=== PATIENT | female | born 1935 | race Caucasian/White ===

== ENCOUNTER 2019-04-08 14:23 | Inpatient (IN) | payer MEDICARE ==
[~2019-04-08] VITALS: Ht 160 cm; Wt 62.9 kg
[2019-04-08 14:56] LABS: BASO % 0.5 % (0.0-1.0); EOS # 0.1 10^3/uL (0.0-0.50); EOS % 1.2 % (0.0-3.0); HEMATOCRIT 41.7 % (36.0-47.0); HEMOGLOBIN 13.7 g/dl (12.0-15.5); LYMPH # 0.8 10^3/uL (1.5-4.5); LYMPH % 9.9 % (24.0-44.0); MEAN CORPUSCULAR HEMOGLOBIN 32.2 pg (27.0-33.0); MEAN CORPUSCULAR HGB CONC 32.9 g/dl (32.0-36.5); MEAN CORPUSCULAR VOLUME 97.9 fl (80.0-96.0); MONO % 11.9 % (0.0-5.0); NEUTROPHILS # 6.3 10^3/uL (1.8-7.7); NEUTROPHILS % 76.1 % (36.0-66.0); PLATELET COUNT, AUTOMATED 286 10^3/uL (150-450); RED BLOOD COUNT 4.26 10^6/uL (4.00-5.40); WHITE BLOOD COUNT 8.3 10^3/uL (4.0-10.0)
[2019-04-08 15:12] LABS: INR 1.19; PROTHROMBIN TIME 14.8 SECONDS (11.8-14.0)
[2019-04-08 15:13] LABS: PARTIAL THROMBOPLASTIN TIME 32.2 SECONDS (25.0-38.4)
[2019-04-08] MEDS ORDERED: ASPIRIN 81 MG CHEW TABLET PO ONE (15:15)
[2019-04-08] MEDS ORDERED: NS 500 ML IV ONE (15:15)
[2019-04-08] MEDS ORDERED: METOPROLOL TART 25 MG TABLET PO ONE ×2 (15:15→17:30)
[2019-04-08] MEDS ORDERED: NS 1,000 ML IV SCH (15:15)
[2019-04-08] MEDS: METOPROLOL 5 MG/5 ML VIAL IV SCH ×3 (15:25→16:57)
[2019-04-08 15:34] LABS: CALCIUM LEVEL 9.3 MG/DL (8.8-10.2); CK-MB VALUE MASS 4.5 NG/ML (<3.6); FREE T4 1.47 NG/DL (0.76-1.46); GLOMERULAR FILTRATION RATE 56.6 (>32); MB/CK RELATIVE INDEX 7.14 (< OR =4); POTASSIUM SERUM 4.4 MEQ/L (3.5-5.1); THYROID STIMULATING HORMONE 6.54 uIU/ML (0.358-3.740); TROPONIN I 0.06 NG/ML (< 0.10)
--- NOTE | 2019-04-08 16:05 | REP ---
REASON: Chest pain. PRIORS: None. The technique utilized in obtaining the radiograph has magnified the cardiac silhouette and accentuated the interstitial markings. There are bibasilar opacities right greater than left with bilateral CP angle blunting and again right greater than left. Calcified hilar lymph nodes are present. There appears to be interstitial fibrotic change. The osseous structures appear to be within normal limits. IMPRESSION: 1. There are no priors for comparison. 2. Lung field changes as described above. I can not rule out the possibility of acute basilar pneumonia. Electronically Signed by Spike Espinoza DO 04/08/2019 04:21 P
[2019-04-08] MEDS ORDERED: BIOT1CAP2 PO (17:36)
[2019-04-08] MEDS ORDERED: VITMTA PO (17:36)
[2019-04-08] MEDS ORDERED: D-10TAB3 PO (17:36)
[2019-04-08] MEDS ORDERED: GLUC500C37 PO (17:36)
[2019-04-08] MEDS ORDERED: LUTE2000 PO (17:36)
[2019-04-08] MEDS ORDERED: FISH1000 PO (17:36)
[2019-04-08] MEDS ORDERED: CO Q10CA PO (17:36)
[2019-04-08] MEDS ORDERED: ACETAMINOPHEN TAB 650MG DOSE (2X325MG) PO PRN (19:00)
[2019-04-08 19:59] LABS: MAGNESIUM LEVEL 2.1 MG/DL (1.8-2.4)
--- NOTE | 2019-04-08 20:10 | ECGEPIP ---
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
--- NOTE | 2019-04-08 20:21 | ECGEPIP ---
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
--- NOTE | 2019-04-08 20:47 | HPE ---
DATE OF ADMISSION: 04/08/2019 CHIEF COMPLAINT: Shortness of breath and weakness for a week. HISTORY OF PRESENT ILLNESS: This is an 83-year-old female who is relatively healthy with no past medical history who presents to the urgent care with shortness of breath and weakness for a week. The patient reports that she is usually quite healthy and ambulatory but for the last week she has gotten quickly winded after ambulating. She went to the urgent care and was found to have new atrial fibrillation and was instructed to come to the emergency room (ER). In the ER, she was found to be in atrial fibrillation with rapid ventricular response (RVR) with heart rates of 120. She was given multiple doses of IV metoprolol with improvement. She herself denies any palpitations or chest pain. Other than the general weakness and shortness of breath she denied any other symptoms. No lower extremity edema. No prior history of palpitations or arrhythmias. REVIEW OF SYSTEMS: Negative in 14 out of 14 systems except as noted above. PAST MEDICAL HISTORY: As above in history of present illness (HPI). PAST SURGICAL HISTORY: 1. She had her right 5th toe removed in December of this year. 2. She had a left total knee replacement. 3. She has a history of bilateral mastectomy. MEDICATIONS: The patient's home medications are: - Biotin capsules one capsule by mouth nightly - glucosamine and chondroitin one capsule by mouth nightly - lutein one capsule by mouth nightly - omega 3 1000 mg by mouth nightly - coenzyme Q10 one capsule by mouth nightly - vitamin D3 1000 units by mouth nightly - multivitamin one tablet by mouth nightly ALLERGIES: No known drug allergies. FAMILY HISTORY: Her father had coronary artery disease. SOCIAL HISTORY: The patient has been for 60 years and lives with her . She has three adult children. 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 No smoking, alcohol, or drugs. She was a prior smoker but quit over 30 years ago. PHYSICAL EXAMINATION: Currently she is afebrile, blood pressure 186/89, pulse of 85, respirating 91% on room air. GENERAL: She is in no acute distress and breathing comfortably. HEENT EXAM: Oropharynx clear. CARDIOVASCULAR: Irregularly irregular. No murmurs, rubs, or gallops. LUNGS: Clear to auscultation bilaterally. ABDOMEN: Soft, nontender, nondistended. Positive bowel sounds. EXTREMITIES: Trace lower extremity edema. SKIN: Intact. NEUROLOGIC: She is alert and oriented times three, follows simple commands. No focal neurologic deficits. PSYCHIATRIC: Mood stable. LABORATORY DATA: Reveal chemistry with a creatinine of 1, potassium 4.4. CBC shows white count of 8.3, hemoglobin 13.7, platelets of 286. IMAGING: Showed a chest x-ray on admission which shows bibasilar opacities right greater than left. Cannot rule out the possibility of pneumonia. ASSESSMENT AND PLAN: This is an 83-year-old female with no significant past medical history who comes in with shortness of breath and weakness for a week, found to be in new atrial fibrillation. 1. New atrial fibrillation. The patient is now rate controlled status post IV metoprolol and by mouth metoprolol. I am going to start her on metoprolol 50 mg twice a day orally. Her CHADS2-VASc score is 4 given that she is over 77, female, has a history of hypertension. I discussed anticoagulation with her and she agrees. I started her on Eliquis 5 mg twice a day. I have checked an echo for tomorrow. Her TSH is 6.5 with a T4 of 1.47 which is basically within normal range as the upper range of normal is 1.46. Her troponin initially was 0.06 and we will repeat another. She will be admitted to the telemetry floor. Given that this is her first episode of atrial fibrillation, I have consulted cardiology in case she is a candidate for an attempt of cardioversion. I have started her on Eliquis as well. 2. Hypertension. She does not carry a history of hypertension, though she has significantly high blood pressures in the emergency room (ER) up to 186/89. I have already started her on metoprolol. Should she continue to be hypertensive, team tomorrow can consider adding another blood pressure medication prior to discharge. 3. The patient is a FULL CODE.
[2019-04-08 22:50] VITALS: BP 188/88
[2019-04-08] MEDS: APIXABAN 5 MG TAB (ELIQUIS) PO SCH (23:03)
[2019-04-08] MEDS: VITAMIN D 1,000 INTERNATIONAL UNITS TABLET PO SCH (23:03)
[2019-04-08] MEDS: MULTIVITAMINS/MINERALS THERAP 1 TAB PO SCH (23:03)
[2019-04-08 23:59] VITALS: BP 167/93
[2019-04-09] VITALS (7 sets, daily range): BP systolic 138–188; BP diastolic 67–96
[2019-04-09] MEDS: amLODIPine 10 MG TAB PO SCH ×2 (04:15→09:44)
[2019-04-09 08:43] LABS: BASO # 0.1 10^3/uL (0.0-0.2); BASO % 0.6 % (0.0-1.0); EOS # 0.1 10^3/uL (0.0-0.50); EOS % 0.9 % (0.0-3.0); HEMATOCRIT 45.5 % (36.0-47.0); HEMOGLOBIN 14.5 g/dl (12.0-15.5); LYMPH # 1.1 10^3/uL (1.5-4.5); LYMPH % 13.6 % (24.0-44.0); MEAN CORPUSCULAR HEMOGLOBIN 32.3 pg (27.0-33.0); MEAN CORPUSCULAR HGB CONC 31.9 g/dl (32.0-36.5); MEAN CORPUSCULAR VOLUME 101.3 fl (80.0-96.0); MONO # 0.8 10^3/uL (0.0-0.8); MONO % 10.1 % (0.0-5.0); NEUTROPHILS # 6.1 10^3/uL (1.8-7.7); NEUTROPHILS % 74.3 % (36.0-66.0); PLATELET COUNT, AUTOMATED 227 10^3/uL (150-450); RED BLOOD COUNT 4.49 10^6/uL (4.00-5.40); WHITE BLOOD COUNT 8.2 10^3/uL (4.0-10.0)
[2019-04-09] MEDS: APIXABAN 5 MG TAB (ELIQUIS) PO SCH ×2 (09:44→20:20)
[2019-04-09] MEDS: METOPROLOL TART 50 MG TAB PO SCH ×2 (09:44→20:21)
[2019-04-09 09:57] LABS: BLOOD UREA NITROGEN 18 MG/DL (7-18); CARBON DIOXIDE LEVEL < 1.0 MEQ/L (21-32); CHLORIDE LEVEL 106 MEQ/L (98-107); CK-MB VALUE MASS 4.9 NG/ML (<3.6); CPK CREATINE PHOSPHOKINASE 60 U/L (26-192); CREATININE FOR GFR 0.78 MG/DL (0.55-1.30); GLOMERULAR FILTRATION RATE > 60.0 (>32); GLUCOSE, FASTING 68 MG/DL (70-100); MB/CK RELATIVE INDEX 8.17 (< OR =4); POTASSIUM SERUM 4.4 MEQ/L (3.5-5.1); SODIUM LEVEL 131 MEQ/L (136-145); TROPONIN I 0.02 NG/ML (< 0.10)
[2019-04-09 10:48] LABS: ALT/SGPT 70 U/L (12-78); BILIRUBIN,TOTAL 0.8 MG/DL (0.2-1.0)
[2019-04-09 10:49] LABS: ALBUMIN 3.2 GM/DL (3.2-5.2); TOTAL PROTEIN 7.2 GM/DL (6.4-8.2)
[2019-04-09 10:54] LABS: CHOLESTEROL RISK RATIO 2.142 (<5); MAGNESIUM LEVEL 1.9 MG/DL (1.8-2.4); THYROID STIMULATING HORMONE 4.11 uIU/ML (0.358-3.740)
[2019-04-09] MEDS ORDERED: ISOVUE-370 76% 100ML VIAL (Q9967) As Ordered ONE (11:00)
[2019-04-09] MEDS ORDERED: LOPR1TAB6 PO (11:12)
[2019-04-09] MEDS ORDERED: ELIQ5TAB PO (11:12)
--- NOTE | 2019-04-09 11:26 | IPN ---
DATE: 04/09/2019 Patient still complains of dizziness on exertion. She denies any palpitations, lightheadedness or dizziness. Describes substernal chest pain, no radiation, lasting for a few minutes, which subsides on its own without any intervention. Denies any fevers or chills. Does not have a productive cough. Dyspnea on exertion has been occurring and worsening for the past two months. No prior history of asthma, smoking or COPD in the past. Overnight, telemetry showed rate control with a ventricular rate of 72 to 93 with an admission rate of 149. The patient is currently stable with her blood pressure on metoprolol 50 twice a day, Norvasc has been added due to blood pressure 188/96. Renal function is stable. The patient denies any changes in vision, blurred vision, nausea or vomiting, epigastric abdominal pain. OBJECTIVE: Temperature 97, T-max of 96.3, pulse 93, respiratory rate 22, blood pressure 162/94, 91% on room air. General: Patient is awake, alert and oriented times three, answering questions appropriately. She does have some mild conversational dyspnea, about seven word sentences to eight words. No use of respiratory accessory muscles. Trachea is midline. Lungs equal bilaterally. Some crackles at the base, otherwise clear to auscultation upper lobes. Heart S1, S2 regularly irregular. Abdomen is soft, nontender, nondistended. Positive bowel sounds. No hepatosplenomegaly. No rebound or guarding. Extremities no cyanosis, clubbing or any pitting edema. LABORATORY DATA: Has been reviewed. ASSESSMENT/PLAN: 83-year-old female with no past medical history who presents with new onset atrial fibrillation, hypertension, and complains of shortness of breath. The patient had recently arrived here from [place] about two months ago. Denies any lower extremity edema, pain or tenderness. CURRENT ISSUES: 1. New onset atrial fibrillation. Rate is controlled with metoprolol 50 twice a day. She currently is on Eliquis twice a day. 2. Uncontrolled hypertension with normal creatinine. Will attempt for longer acting control with some losartan. Check lipid profile 3. Shortness of breath secondary to hypertensive urgency and new onset atrial fibrillation. Currently question of a basilar infiltrate, therefore will obtain CT of the chest to rule out PE, early pneumonia. No empiric antibiotics as the patient does not have any fevers, chills or cough. 4. Systemic inflammatory response with temperature of 96.3, respiratory rate of 22. Await results of CT chest to rule out pneumonia. Chest procalcitonin. No empiric antibiotics. 5. Shortness of breath. Obtain a 2D echocardiogram. Chest x-ray showed possible early pneumonia. Will obtain CT chest prior to starting on antibiotics. Physical therapy home safety evaluation. Discharge home in the morning.
--- NOTE | 2019-04-09 11:50 | REP ---
CT ANGIOGRAM CHEST: TECHNIQUE: Axial contrast enhanced images from the thoracic inlet to the upper abdomen using 100 mL Isovue 370 intravenous contrast material with multiplanar reformations. There is no CT evidence of pulmonary embolism. There is ectasia of the ascending thoracic aorta 3.9 cm in maximum diameter. I cannot evaluate for aortic dissection with no contrast opacifying the aortic lumen. Minimally prominent reactive lymph nodes are seen in the mediastinum. These are not significantly enlarged. There is mild to moderate cardiomegaly. There is no pericardial effusion. There is a moderate to large right pleural effusion. There is a moderate left pleural effusion. Diffuse ground-glass interstitial infiltrates are seen bilaterally. A calcified granuloma is seen in the right lung. There is a cyst in the right lobe of the liver. This measures approximately 2.7 cm in maximum diameter. IMPRESSION: No CT evidence of pulmonary embolism. Diffuse bilateral parenchymal infiltrates with moderate to large bilateral effusions right greater than left. Moderate cardiomegaly. Findings may be on the basis of congestive heart failure and pulmonary edema. Underlying pneumonic infiltrate cannot be excluded. Electronically Signed by Luis Roper MD 04/10/2019 08:02 A
[2019-04-09] MEDS: ISOSORBIDE MONONITRATE 10MG TABLET PO SCH ×2 (12:13→17:01)
[2019-04-09] MEDS ORDERED: SLF 3 ML SYR IV PRN (14:15)
[2019-04-09] MEDS: VITAMIN D 1,000 INTERNATIONAL UNITS TABLET PO SCH (20:20)
[2019-04-09] MEDS: MULTIVITAMINS/MINERALS THERAP 1 TAB PO SCH (20:20)
[2019-04-09] MEDS: SLF 3 ML SYR IV SCH (20:21)
[2019-04-09] MEDS: FUROSEMIDE 40 MG/4 ML VIAL (J1940) IV SCH (23:06)
[2019-04-10] VITALS (7 sets, daily range): BP systolic 138–156; BP diastolic 69–89
[2019-04-10] MEDS: FUROSEMIDE 40 MG/4 ML VIAL (J1940) IV SCH ×4 (02:12→21:59)
[2019-04-10] MEDS: SLF 3 ML SYR IV SCH ×3 (05:18→21:59)
[2019-04-10 06:07] LABS: BASO # 0.1 10^3/uL (0.0-0.2); BASO % 0.6 % (0.0-1.0); EOS # 0.4 10^3/uL (0.0-0.50); EOS % 4.3 % (0.0-3.0); HEMATOCRIT 38.6 % (36.0-47.0); HEMOGLOBIN 12.6 g/dl (12.0-15.5); LYMPH # 1.1 10^3/uL (1.5-4.5); LYMPH % 12.4 % (24.0-44.0); MEAN CORPUSCULAR HEMOGLOBIN 31.1 pg (27.0-33.0); MEAN CORPUSCULAR HGB CONC 32.6 g/dl (32.0-36.5); MEAN CORPUSCULAR VOLUME 95.3 fl (80.0-96.0); MONO # 1.2 10^3/uL (0.0-0.8); MONO % 13.2 % (0.0-5.0); NEUTROPHILS % 68.8 % (36.0-66.0); PLATELET COUNT, AUTOMATED 265 10^3/uL (150-450); RED BLOOD COUNT 4.05 10^6/uL (4.00-5.40); WHITE BLOOD COUNT 8.8 10^3/uL (4.0-10.0)
[2019-04-10] MEDS: ISOSORBIDE MONONITRATE 10MG TABLET PO SCH ×2 (06:14→16:52)
[2019-04-10 06:33] LABS: CALCIUM LEVEL 8.7 MG/DL (8.8-10.2); CK-MB VALUE MASS 4.4 NG/ML (<3.6); CREATININE FOR GFR 0.96 MG/DL (0.55-1.30); GLOMERULAR FILTRATION RATE 59.4 (>32); MAGNESIUM LEVEL 2.1 MG/DL (1.8-2.4); MB/CK RELATIVE INDEX 9.36 (< OR =4); POTASSIUM SERUM 3.6 MEQ/L (3.5-5.1); TROPONIN I 0.04 NG/ML (< 0.10)
--- NOTE | 2019-04-10 06:42 | ECHO ---
DATE OF SERVICE: 04/09/2019 DATE OF : 1935 AGE: 83 REFERRING PROVIDER: Beatris Fuller MD PATIENT LOCATION: Room 3230 REASON FOR THE ECHOCARDIOGRAM: Dysrhythmia. 2D MEASUREMENTS: IVS: 1.3 cm LV: 3.6 cm LVPW: 1.2 cm LA: 4.2 cm Aorta: 3.1 cm IVC: 1.95 cm DOPPLER MEASUREMENTS: Peak velocity across the aortic valve: 1.0 m/s Peak velocity across the LVOT: 0.9 m/s Mitral E: 1.2 Mitral A: 0.4 with a ratio of 2.1 Maximum tricuspid valve velocity: 3.6 m/s 2D COMMENTS: 1. Normal left ventricular size with mildly increased left ventricular wall thickness but with a moderately depressed global left ventricular systolic function. There was mild to moderate global hypokinesis and more hypokinesis was noted at the level of the septum. The estimated left ventricular systolic ejection fraction is 35-40%. 2. Mildly enlarged left atrium. The right atrium appeared to be mildly enlarged. Normal right ventricle. 3. The atrial septum appeared to be normal without evidence of defect or shunt. 4. Normal aortic root. 5. A small pericardial effusion was noted, no evidence of cardiac tamponade. Pleural effusion was noted. 6. Mildly calcified aortic valve with normal leaflet excursion. Mildly calcified mitral annulus with normal anterior mitral valve leaflet motion. Normal tricuspid valve. Normal pulmonic valve. 7. The inferior vena cava was borderline enlarged. DOPPLER: It detects moderately severe mitral regurgitation and moderate tricuspid regurgitation as well as trace pulmonic regurgitation. The calculated pulmonary artery systolic pressure varies between 60-70 mmHg. IMPRESSION: 1. Moderate global left ventricular systolic dysfunction with mild to moderate global hypokinesis. 2. Aortic valve sclerosis without stenosis or aortic regurgitation. 3. Mitral annulus calcification with mildly enlarged left atrium and moderately severe mitral regurgitation. 4. Moderate tricuspid regurgitation with dilated right atrium and severe pulmonary hypertension. 5. A small pericardial effusion was noted, no evidence of cardiac tamponade. Pleural effusion also was noted. MTDD
[2019-04-10] MEDS: amLODIPine 10 MG TAB PO SCH (07:54)
[2019-04-10] MEDS: METOPROLOL TART 50 MG TAB PO SCH ×2 (07:54→21:58)
[2019-04-10] MEDS ORDERED: metOLazone 2.5 MG TAB PO SCH (08:30)
[2019-04-10] MEDS: POTASSIUM CHLORIDE 10 MEQ SR TABLET PO SCH ×2 (09:22→21:58)
[2019-04-10] MEDS: APIXABAN 5 MG TAB (ELIQUIS) PO SCH ×2 (09:23→21:58)
[2019-04-10] MEDS ORDERED: METOPROLOL 5 MG/5 ML VIAL IV STA (12:34)
[2019-04-10] MEDS ORDERED: DIGOXIN INJ 0.5 MG/2 ML AMP (J1160) IV ONE (12:45)
[2019-04-10] MEDS ORDERED: METOPROLOL TART 25 MG TABLET PO ONE (12:45)
--- NOTE | 2019-04-10 14:09 | REP ---
RENAL AND BLADDER ULTRASOUND WITH DUPLEX DOPPLER EVALUATION OF RENAL ARTERIES: Real-time sonographic evaluation of kidneys performed. Kidneys are normal in size and echotexture, right kidney measuring 10.8 x 5.1 x 5.5 cm and left kidney 9.6 x 3.4 x 4.1 cm. There is no hydronephrosis on the left, but the right kidney demonstrates moderate hydronephrosis and proximal hydroureter. No renal stone or mass is seen. Urinary bladder is distended measuring 7.9 x 10.0 x 7.8 cm for a total volume of 322 mL. No mass or calculus is seen. Incidental note is made of bilateral pleural effusions. Real-time ultrasound evaluation and duplex Doppler interrogation of the renal arteries is performed bilaterally. Abdominal aorta is ectatic. There are increased flow velocities in the abdominal aorta, above the level of the renal arteries with a peak systolic velocity of 390 cm/s, at the level of the renal artery is 251 cm/s and distally 143 cm/s. Peak systolic velocity of the main right renal artery is 264 cm/s proximally, renal to aortic ratio 1.05. Resistive indices are measured in the upper, middle, and lower thirds of the right kidney and range between 0.71 and 0.79. Acceleration times range between 0.02 and 0.04. Peak systolic velocity of the main left renal artery is 111 cm/s proximally, but other portions of the main left renal artery are not well seen. Resistive indices left kidney range between 0.44 and 0.58. Acceleration times range between 0.12 and 0.22. IMPRESSION: Moderate right hydroureteronephrosis. Bilateral pleural effusions. Elevated flow velocity in the abdominal aorta compatible with stenosis of the proximal abdominal aorta. Low resistive indices and elevated acceleration times of the left kidney suggest left renal artery stenosis, but there is limited visualization directly of the left renal artery. Elevated peak systolic velocity in the proximal right renal artery is likely falsely elevated due to the elevated flow velocities in the abdominal aorta. CTA, MRA, or conventional angiography would be needed to confirm renal artery stenosis. Electronically Signed by Luis Roper MD 04/11/2019 07:44 A
--- NOTE | 2019-04-10 15:59 | CR.PDOC ---
General Date of Consultation: Apr 10, [address] Weeks HPI: 83 year old F who was seen at urgent care and was found to have new atrial fibrillation and was instructed to come to the emergency room (ER). She was fo und to be in atrial fibrillation with rapid ventricular response with heart rates of 120. She was admitted to the hospitalist service. Renal ultrasound was obtained related to HTN indicating left renal artery stenosis. Vascular surgery is consulted. No acute medical complaints today the patient is up out of bed and ambulating around the room. Denies any fevers, chills, weakness, fatigue, Headache, Chest Pain, Shortness of breath, cough, palpitations, abdominal pain, N/V/D or changes in bowel or bladder habits. PMHx: History of breast cancer PSHX: Left knee surgery Left bunion surgery Right fifth toe amputation Bilateral mastectomy SOCHX: Resides in: [place] in [place], [place] [facility] [place] Tobacco use: Denies ETOH: Denies ROS: As noted in HPI, otherwise 11pt ROS of systems reviewed and unremarkable. PE: GEN: 83 yo F, appears stated age. Well-nourished, well developed. No acute distress. Alert and oriented x 3. Pleasant, interactive. HEENT: Normocephalic, atraumatic. Conjunctiva without injection. Moist mucous membranes. CHEST: Regular rate and rhythm, +S1, +S2 LUNGS: Clear to auscultation bilaterally. No wheezes, rales, or rhonchi. ABD: Round, soft, non-tender, non-distended. +Bowel sounds throughout. No palpab le masses. No bruit noted. EXT: Feet are warm, good capillary refill. No lower extremity edema appreciated. SKIN: [place], dry, warm. No rashes. NEURO: Alert and oriented x 3. Cranial nerves III-XII are intact. No focal deficits appreciated. Renal ultrasound IMPRESSION: Moderate right hydroureteronephrosis. Bilateral pleural effusions. Elevated flow velocity in the abdominal aorta compatible with stenosis of the proximal abdominal aorta. Low resistive indices and elevated acceleration times of the left kidney suggest left renal artery stenosis, but there is limited visualization directly of the left renal artery. Elevated peak systolic velocity in the proximal right renal artery is likely falsely elevated due to the elevated flow velocities in the abdominal aorta. CTA, MRA, or conventional angiography would be needed to confirm renal artery stenosis. Unreviewed DD: Luis Roper MD, MD 04/10/19 1242 A&P: 1. Renal artery stenosis. Renal artery ultrasound is reviewed with Dr. Weeks. The patient is reviewed and examined by Dr. Weeks. Plan is for renal artery angiogram 04/11/19 Vital Signs/I&O Vital Signs Date Time Temp Pulse Resp B/P (MAP) Pulse Ox O2 Delivery O2 Flow Rate FiO2 04/10/19 13:03 141/89 (106) 04/10/19 13:00 97.1 114 20 93 2.0 04/08/19 22:00 Room Air I&O- Last 24 Hours up to 6 AM 04/10/19 06:00 Intake Total 600 ml Output Total 1050 ml Balance -450 ml Laboratory Data Labs 24H Laboratory Tests 2 04/10/19 05:52: Immature Granulocyte % (Auto) 0.7, White Blood Count 8.8, Red Blood Count 4.05, Hemoglobin 12.6, Hematocrit 38.6, Mean Corpuscular Volume 95.3, Mean Corpuscular Hemoglobin 31.1, Mean Corpuscular Hemoglobin Concent 32.6, Red Cell Distribution Width 15.4H, Platelet Count 265, Neutrophils (%) (Auto) 68.8H, Lymphocytes (%) (Auto) 12.4L, Monocytes (%) (Auto) 13.2H, Eosinophils (%) (Auto) 4.3H, Basophils (%) (Auto) 0.6, Neutrophils # (Auto) 6.0, Lymphocytes # (Auto) 1.1L, Monocytes # (Auto) 1.2H, Eosinophils # (Auto) 0.4, Basophils # (Auto) 0.1, Nucleated Red Blood Cells % (auto) 0.0, Anion Gap 5L, Glomerular Filtration Rate 59.4, Blood Urea Nitrogen 30#H, Creatinine 0.96, Sodium Level 138#, Potassium Level 3.6, Chloride Level 104, Carbon Dioxide Level 29, Calcium Level 8.7#L, Total Creatine Kinase 47, Magnesium Level 2.1, Creatine Kinase MB 4.4H, Creatine Kinase MB Relative Index 9.36H, Troponin I 0.04# CBC/BMP Laboratory Tests 04/10/19 05:52 Red Blood Count 4.05, Mean Corpuscular Volume 95.3, Mean Corpuscular Hemoglobin 31.1, Mean Corpuscular Hemoglobin Concent 32.6, Red Cell Distribution Width 15.4 H, Neutrophils (%) (Auto) 68.8 H, Lymphocytes (%) (Auto) 12.4 L, Monocytes (%) (Auto) 13.2 H, Eosinophils (%) (Auto) 4.3 H, Basophils (%) (Auto) 0.6, Neutrophils # (Auto) 6.0, Lymphocytes # (Auto) 1.1 L, Monocytes # (Auto) 1.2 H, Eosinophils # (Auto) 0.4, Basophils # (Auto) 0.1, Calcium Level 8.7 #L, Total Creatine Kinase 47 Allergies Coded Allergies: No Known Allergies (Unverified , 04/08/19) Home Medications Scheduled Apixaban (Eliquis) 5 Mg Tablet, 5 MG PO BID for 30 Days, #60 Biotin (Biotin) Unknown Strength Capsule, 1 CAP PO QHS, (Reported) Cholecalciferol (Vitamin D3) (Vitamin D3) 1,000 Unit Tablet, 1,000 UNIT PO QHS, (Reported) Glucosa Singleton 2Kcl/Chondroitin Singleton (Glucosamine & Chondroitin Cap) 1 Each Capsule, 1 EACH PO QHS, (Reported) Lutein (Lutein) Unknown Strength Capsule, 1 CAP PO QHS, (Reported) Metoprolol Tartrate (Lopressor) 50 Mg Tablet, 50 MG PO BID for 30 Days, #60 Multivitamins (Thera M Plus Tablet) 1 Each Tablet, 1 TAB PO QHS, (Reported) Echo-3 Fatty Acids/Fish Oil (Fish Oil 1,000 mg Capsule) 1 Each Capsule, 1,000 MG PO QHS, (Reported) Ubidecarenone (Co Q-10) Unknown Strength Capsule, 1 CAP PO QHS, (Reported) Winifred Mcginnis Apr 10, 2019 15:59
[2019-04-10 18:31] LABS: CALCIUM LEVEL 9.1 MG/DL (8.8-10.2); CREATININE FOR GFR 1.05 MG/DL (0.55-1.30); GLOMERULAR FILTRATION RATE 53.5 (>32); POTASSIUM SERUM 3.4 MEQ/L (3.5-5.1)
[2019-04-10] MEDS: VITAMIN D 1,000 INTERNATIONAL UNITS TABLET PO SCH (21:57)
[2019-04-10] MEDS: MULTIVITAMINS/MINERALS THERAP 1 TAB PO SCH (21:58)
[2019-04-11] VITALS (9 sets, daily range): BP systolic 127–159; BP diastolic 68–94
[2019-04-11] MEDS: FUROSEMIDE 40 MG/4 ML VIAL (J1940) IV SCH ×4 (02:46→20:18)
[2019-04-11] MEDS: SLF 3 ML SYR IV SCH ×3 (05:06→22:00)
[2019-04-11] MEDS: ISOSORBIDE MONONITRATE 10MG TABLET PO SCH ×2 (05:55→18:21)
[2019-04-11 06:32] LABS: CALCIUM LEVEL 8.9 MG/DL (8.8-10.2); CREATININE FOR GFR 1.13 MG/DL (0.55-1.30); GLOMERULAR FILTRATION RATE 49.2 (>32); MAGNESIUM LEVEL 1.9 MG/DL (1.8-2.4); POTASSIUM SERUM 3.4 MEQ/L (3.5-5.1)
[2019-04-11] MEDS ORDERED: LIDOCAINE 2% MDV 20 ML VIAL As Ordered ONE (06:57)
[2019-04-11] MEDS ORDERED: BUPIVACAINE HCL 0.5% 10 ML VIAL As Ordered ONE (06:57)
[2019-04-11] MEDS ORDERED: ISOVUE-300 61% 50ML VIAL (Q9967) As Ordered ONE (06:58)
[2019-04-11] MEDS ORDERED: diphenhydrAMINE INJ 50MG/ML VIAL (J1200) As Ordered ONE (06:59)
[2019-04-11] MEDS ORDERED: PILL CUTTER 1 EACH XX PRN (08:00)
[2019-04-11] MEDS: APIXABAN 5 MG TAB (ELIQUIS) PO SCH ×3 (09:00→20:19)
[2019-04-11] MEDS: METOPROLOL TART 25 MG TABLET PO SCH ×2 (09:01→13:37)
[2019-04-11] MEDS: POTASSIUM CHLORIDE 10 MEQ SR TABLET PO SCH ×3 (09:01→20:19)
[2019-04-11] MEDS: SPIRONOLACTONE 25 MG TAB PO SCH (09:01)
[2019-04-11] MEDS: amLODIPine 10 MG TAB PO SCH (09:01)
--- NOTE | 2019-04-11 09:30 | REP ---
CHEST, PORTABLE: AP portable view of the chest is performed and compared to a prior study of 04/08/2019. There is cardiomegaly. Vascular congestion and interstitial edema, with mild bibasilar parenchymal opacities are all unchanged. There is mild increase in right pleural fluid. There is calcification of the thoracic aorta. The mediastinal silhouette is unchanged. Metallic clips are seen in the right axillary region. IMPRESSION: Cardiomegaly, vascular congestion, diffuse interstitial infiltrates and bibasilar parenchymal opacities are unchanged. There is mild increase in the amount of right pleural fluid. Electronically Signed by Luis Roper MD 04/11/2019 10:15 A
--- NOTE | 2019-04-11 11:45 | IPN ---
DATE OF SERVICE: 04/10/2019 The patient seen and examined at the bedside. She denies any chest pain, pressure, or tightness, lightheadedness, or dizziness. Ambulating well. She describes her shortness of breath as only slightly improved but still with some dyspnea on exertion. The patient's rate overnight has remained atrial fibrillation, ventricular rate of 69-122. Blood pressure was stable at 138-150. Currently on metoprolol and Lasix. Intake and output overnight was 2.8 liters. Out throughout the day today was negative 0 output. Current weight is 69.5 kg, increased from admission weight of 68.7 kg. Vital signs: Temperature 97.4, pulse 114 irregularly irregular, respiratory rate 20, blood pressure 150/72, 91% on 2 liters nasal cannula. Generally, the patient does have mild conversational dyspnea, able to speak about 7-8 words. Pupils are reactive. Extraocular muscles are intact. Positive jugular venous distention. No thyromegaly or cervical lymphadenopathy. Moist mucous membranes. Lungs are diminished bilaterally with crackles at the bases. Heart: S1, S2 irregularly irregular. There is systolic ejection murmur at the apex, as well as the left lower sternal border. Abdomen is soft, nontender, nondistended. Positive bowel sounds. No hepatosplenomegaly. No rebound or guarding. Extremities: No cyanosis or clubbing. 04/10/2019 complete blood count (CBC) and metabolic panel have been reviewed. Notable for potassium of 3.4 and B1 of 32. IMAGING STUDIES: CT angiogram 04/09/2019 shows no pulmonary embolism (PE). Moderate to large bilateral effusions, right greater than left. Moderate cardiomegaly. Congestive heart failure. Pulmonary edema. Renal ultrasound 04/10/2019 shows moderate right hydroureteronephrosis, bilateral pleural effusions, elevated flow velocity in the abdominal aorta compatible with stenosis of the proximal abdominal aorta, low resistive indices, and elevated acceleration times of the left kidney suggesting left renal artery stenosis but of limited visualization directly of the left renal artery, elevated peak systolic velocity in the proximal right renal artery slightly falsely elevated due to elevated flow velocity in the abdominal aorta. CTA, MRA, or conventional angiography would be needed to confirm the renal artery stenosis. ASSESSMENT AND PLAN: This is an 83-year-old female with no past medical history who was cleared for surgery for her knee back in December, now presents with palpitations, shortness of breath, and congestion, dyspnea on exertion, found to have atrial fibrillation (AFib) with rapid ventricular rate, hypertensive emergency with congestive heart failure which is new-onset, and finding of the left renal artery stenosis. IMPRESSION: 1. New-onset atrial fibrillation with rapid ventricular response. The patient had been on metoprolol 50 twice a day and Eliquis for anticoagulation to prevent cerebrovascular accident (CVA). The patient had uncontrolled rate today and did receive an additional 25 mg of metoprolol and digoxin. 2. Hypertensive emergency with congestive heart failure which is new-onset. The patient had been on metoprolol for rate control for atrial fibrillation. She is currently on Lasix intravenously for diuresis and was given metolazone for better diuresis. She is currently on isosorbide 10 mg twice a day and Norvasc 10 daily. Will defer to cardiology to adjust medications accordingly due to new finding of systolic congestive heart failure. 3. New-onset congestive heart failure with decreased low ejection fraction. Ejection fraction of 35% to 40% with moderate mitral regurgitation, moderate tricuspid regurgitation, and pulmonary hypertension, PA pressure of 60-70 mmHg. The patient is currently being diuresed with intravenous (IV) Lasix to a net negative balance of 1 liter daily. She is currently placed on 2 liter fluid restriction, along with strict intake and output (I and O) and daily weighs. The patient admits to having increased fluid intake at home. Dr. Payne, cardiology, has been consulted for management and decision for whether the patient should be transferred to [facility] for angiogram versus stress test as outpatient. 4. Left renal artery stenosis causing uncontrolled hypertension. The patient is made aware that she is to be evaluated by vascular surgery for stenting. 5. Hypokalemia due to Lasix diuresis. Currently on potassium supplementation. Will optimize the patient's magnesium, as well, due to increase of premature ventricular contractions (PVCs) and nonsustained ventricular tachycardia (V-TACH) in light of the patient's poor systolic function. 6. Abnormal cardiac markers. Defer to Dr. Payne for timing of either angiogram or stress testing.
--- NOTE | 2019-04-11 14:48 | REP ---
REASON: Aorto-occlusive disease. There are no prior abdominal or pelvic CTs for comparison. The exam was ordered and performed without the administration of intravenous contrast which significantly decreases the sensitivity of the exam. This exam was not ordered or performed as a CT angio exam. The lung bases show bilateral pleural effusions, right greater than left with patchy bibasilar opacities. Limited evaluation of the liver shows multiple focal areas of low density, the largest is in the medial segment of the left lobe measuring 2.1 cm having peripheral calcification and much higher than water Hounsfield unit readings. There is no evidence of intrahepatic ductal dilatation. There is no evidence of cholelithiasis. Multiple calcifications are seen in the spleen secondary to granulomatous changes. There is no evidence of a gross pancreatic or adrenal gland abnormality. There was no evidence of a gross left renal abnormality. There is marked right sided hydronephrosis. There is no evidence of hydroureter. There is advanced calcific atherosclerotic change seen throughout the abdominal aorta and iliac arteries. There is no evidence of free intra-abdominal fluid or air. Limited evaluation of the bowel loops and their mesenteries show no gross abnormalities. CT PELVIS: Seen in the right groin there is a mass-like density which measures approximately 4.6 x 3.4 x 6.6 cm. There is no evidence of free pelvic fluid or air. Pelvic bowel loops and their mesenteries are within normal limits. Bone window technique throughout the examination shows chronic spine, hip, and sacroiliac joint degenerative changes. IMPRESSION: 1. There are bilateral pleural effusions and bilateral patchy lung base opacities. Pneumonia cannot be ruled out. 2. Abnormal low density lesion in the medial segment of the left lobe of the liver, as described above, etiology uncertain. Metastatic disease cannot be ruled out. 3. Right renal hydronephrosis which is severe. 4. Right groin mass density of uncertain etiology. Hematoma, pseudoaneurysm, lymphadenopathy, or other abnormalities cannot be ruled out by this noncontrast enhanced exam. 5. Heavy calcific atherosclerotic change in the abdominal aorta and iliac arteries. 6. Other findings as described above. Stat report was generated at the time of this dictation and the note was placed in [employer] describing the salient findings at this time. This examination was not ordered as a stat examination or stat interpretation, however, it was ordered as "CHEL". Electronically Signed by Spike Espinoza DO 04/11/2019 05:01 P
[2019-04-11] MEDS: **hydrALAZINE HCL** 25 MG TAB PO SCH ×2 (16:53→20:20)
--- NOTE | 2019-04-11 17:21 | CR ---
DATE OF CONSULTATION: 04/11/2019 REFERRING PHYSICIAN: Nancy Solis MD INDICATION: Heart failure, acute on chronic, systolic and diastolic, persistent atrial fibrillation. Dilated cardiomyopathy. HISTORY OF PRESENT ILLNESS: Joaquina Denney is a pleasant, 83-year-old woman with no previously known heart disease history to her knowledge who began having progressive exertional dyspnea beginning the middle of February 2019 which progressed to dyspnea with low levels of activity but no dyspnea at rest. She also developed orthopnea and sometimes had to sleep in a recliner. No paroxysmal nocturnal dyspnea. During the same time period, she noticed progressive mild bilateral edema in both legs. She is completely unaware of any palpitations. No chest pain or discomfort with or without activity. No intermittent claudication. No prior strokes or TIAs or other embolic events. She presented to hospital 04/08/2019 with shortness of breath and was discovered to have atrial fibrillation with rapid ventricular response. Echocardiogram Doppler 04/09/2019 reported moderate global left ventricular (LV) systolic dysfunction with mild to moderate global hypokinesis. Left ventricle ejection fraction estimated to be 35-40%. Mild concentric left ventricle hypertrophy. Atria were thought to appear normal. Small pericardial effusion was present. Mild calcification of the aortic valve without stenosis or regurgitation. Mitral annular calcification with moderately-severe mitral regurgitation. Mild left atrial dilatation. Moderate tricuspid regurgitation with dilated right atrium. Severe pulmonary hypertension. Maximum tricuspid velocity 3.6 m/s. During this hospitalization patient was discovered to have renal artery stenosis and was diagnosed with systemic hypertension. Renal ultrasound with Doppler evaluation of the renal arteries reported moderate right hydroureteronephrosis, bilateral pleural effusions, elevated flow in the abdominal aorta consistent with stenosis of the proximal abdominal aorta, low resistive indices and elevated acceleration times of the left kidney suggestive of left renal artery stenosis. CT of the abdomen and pelvis 04/11/2019 reported right renal hydronephrosis (severe). Right groin mass of uncertain etiology. Hematoma, pseudoaneurysm, lymphedema, and other abnormalities could not be ruled out on the noncontrast enhanced examination. Bilateral pleural effusions with bilateral patchy lung based opacities; pneumonia cannot be ruled out. Abdominal low density lesion in the medial segment of the left lobe of the liver, etiology uncertain. Metastatic disease cannot be ruled out. ALLERGIES: No known adverse drug reactions. MEDICATIONS PRIOR TO ADMISSION: - Eliquis 5 mg twice a day - Biotin one capsule nightly - vitamin D3 1000 units nightly - glucosamine chondroitin one nightly - lutein one nightly - metoprolol tartrate 50 mg twice a day - multivitamin one daily - omega 3 1000 mg nightly - coenzyme Q10 one nightly PATIENT'S CURRENT MEDICATIONS IN HOSPITAL: Are as follows: - acetaminophen 650 mg every 4 hours as needed - amlodipine 10 mg daily - apixaban 5 mg twice a day - furosemide 40 mg IV every 6 hours - metoprolol tartrate 37.5 mg every 6 hours - multivitamin one daily - potassium chloride 40 mEq three times a day - vitamin D 1000 units nightly OTHER PAST MEDICAL AND SURGICAL HISTORY: Persistent atrial fibrillation (diagnosis of this hospitalization), systolic heart failure and dilated cardiomyopathy (diagnosis of this hospitalization), 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 SOCIAL HISTORY: Patient lives in [place] and spends from January until [place] [facility]. Nonsmoker. No alcohol. Lives with her . REVIEW OF SYSTEMS: Ten-point review of systems as per history of present illness (HPI) above but otherwise negative. No anxiety, panic attacks, or depression. PHYSICAL EXAMINATION: Pleasant, overweight, , elderly woman who appears her chronological age who is not in any respiratory or psychologic distress. Height 63 inches, weight 66 kg, body mass index (BMI) 25.8. No conjunctival pallor, sclerae icterus, or xanthomas. Dental fillings present. Oral mucosa was moist and without pallor or cyanosis. Jugular venous pulsations were at 3 cm. Trachea midline. No palpable thyroid. No clubbing of nail beds, cyanosis, or splinter hemorrhages. No skin lesions, skin pallor, or icterus. Oriented to person, place, and time. Mood and affect normal. Curvature of spine normal. Gait could not be tested as the patient is on bed rest at the moment. Gross motor strength and tone normal. No abnormal muscle atrophy, fasciculations, or tremors. Respiratory expansion and effort were normal. No crackles or wheezes. No palpable apex beat. No parasternal lifts, heaves, thrills, or palpable heart sounds. First and second heart sounds are variable in intensity. Loud S2. No S3. Grade 1 pansystolic murmur at the apex. Carotids were normal in volume and contour without bruits. No palpable abdominal aorta. No abdominal bruits. Femoral pulses normal. Pedal pulses normal. No peripheral edema. No varicose veins. Abdomen was mildly obese and was soft, nontender with normal bowel sounds. No hepatosplenomegaly or other organomegaly. Liver span difficult to assess due to abdominal obesity. Stool for occult blood to be ordered as the patient has been started on anticoagulation for atrial fibrillation. ASSESSMENT AND RECOMMENDATIONS: 1. Heart failure (systolic and diastolic, acute on chronic). 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 Other factors that may contribute to this patient's cardiomyopathy could include systemic hypertension, possibility of coronary artery disease (CAD), postviral, idiopathic, and secondary to mitral regurgitation (valvular cardiomyopathy). I recommend that the patient undergo an outpatient cardiac nuclear stress test to assess her coronary status. I wish to hold off on using angiotensin converting enzyme (FLYNN) inhibitor, ARB, or Entresto at the present time because the patient is presently awaiting treatment of renal artery stenosis. I recommend switching from amlodipine to combination of long-acting nitrates and hydralazine. I will switch her from metoprolol tartrate to metoprolol succinate and increase the overall dose of metoprolol succinate to help control heart rate further. If she does not achieve adequate heart rate control on metoprolol, I will consider adding digoxin. 2. Dilated cardiomyopathy. As per heart failure category above. 3. Atrial fibrillation (persistent) with rapid ventricular response. I agree with Juanita. As noted above, I will switch her from metoprolol tartrate (currently 150 mg daily) to metoprolol succinate total dosage 200 mg daily. If this dose of metoprolol succinate does not obtain control of rapid ventricular response then digoxin should be considered. Because this patient has moderately-severe mitral regurgitation, I am not entirely convinced that she would benefit from electrical cardioversion as I think the long-term success rate will be low. 4. Nonrheumatic mitral valve disease (mitral annular calcification). The echocardiogram Doppler reported moderately-severe mitral regurgitation. Whether this is due to degenerative calcific aortic valve disease or secondary to dilated cardiomyopathy is unclear. Once she has stabilized it may be useful to consider a transesophageal echocardiogram to better define the etiology of the patient's mitral regurgitation and to reassess the severity via transesophageal echocardiogram. 5. Unilateral renal artery stenosis. This is contributing to the development of systemic hypertension. Dr. Jeyson Weeks, I understand, is considering proceeding with percutaneous opening of the renal artery stenosis and I think that this should hopefully help the patient. 6. Systemic hypertension. Agree with plan to proceed with percutaneous intervention of the renal artery stenosis. Because of the patient's systolic heart failure, I recommend switching from amlodipine to hydralazine and long-acting nitrate. As noted above, I have increased the dosage of beta marcelino. Agree with spironolactone and IV furosemide.
[2019-04-11 19:20] LABS: CALCIUM LEVEL 9.5 MG/DL (8.8-10.2); CREATININE FOR GFR 1.12 MG/DL (0.55-1.30); GLOMERULAR FILTRATION RATE 49.7 (>32); MAGNESIUM LEVEL 1.8 MG/DL (1.8-2.4); POTASSIUM SERUM 3.7 MEQ/L (3.5-5.1)
[2019-04-11] MEDS: MULTIVITAMINS/MINERALS THERAP 1 TAB PO SCH (20:19)
[2019-04-11] MEDS: VITAMIN D 1,000 INTERNATIONAL UNITS TABLET PO SCH (20:19)
[2019-04-11] MEDS ORDERED: ENTRESTO 24-26MG TABLET (SACUBITRIL/VALSARTAN) PO SCH (21:00)
[2019-04-11] MEDS ORDERED: METOPROLOL SUCC (TopROL XL) 100MG *XL* TAB PO SCH (21:00)
[2019-04-12] VITALS (7 sets, daily range): BP systolic 113–144; BP diastolic 59–70
[2019-04-12] MEDS: FUROSEMIDE 40 MG/4 ML VIAL (J1940) IV SCH ×3 (03:38→15:18)
[2019-04-12] MEDS: SLF 3 ML SYR IV SCH ×3 (05:55→21:02)
[2019-04-12] MEDS: ISOSORBIDE MONONITRATE 10MG TABLET PO SCH ×2 (06:00→18:58)
[2019-04-12 06:09] LABS: CALCIUM LEVEL 9.2 MG/DL (8.8-10.2); CREATININE FOR GFR 1.27 MG/DL (0.55-1.30); MAGNESIUM LEVEL 1.6 MG/DL (1.8-2.4); POTASSIUM SERUM 3.7 MEQ/L (3.5-5.1)
[2019-04-12] MEDS ORDERED: DIGOXIN INJ 0.5 MG/2 ML AMP (J1160) IV STA (08:13)
[2019-04-12] MEDS: BISOPROLOL FUMARATE 5 MG TAB PO SCH ×2 (08:45→21:01)
[2019-04-12] MEDS: **hydrALAZINE HCL** 25 MG TAB PO SCH ×3 (08:46→18:05)
[2019-04-12] MEDS: AMIODARONE 200 MG TAB (PACERONE) PO SCH ×4 (08:46→21:01)
[2019-04-12] MEDS: APIXABAN 5 MG TAB (ELIQUIS) PO SCH ×2 (08:46→21:00)
[2019-04-12] MEDS: SPIRONOLACTONE 25 MG TAB PO SCH (08:46)
[2019-04-12] MEDS: POTASSIUM CHLORIDE 10 MEQ SR TABLET PO SCH ×2 (08:47→15:18)
[2019-04-12] MEDS ORDERED: MAG SULF 1GM/100ML (MAG RUN) 1 GM in APPROPRIATE DILUENT 1 EA IV ONE (13:00)
--- NOTE | 2019-04-12 16:08 | IPN ---
DATE: 04/11/2019 The patient is seen and examined at the bedside. Chart has been reviewed. She denies any chest pain, pressure or tightness. Complains of some shortness of breath, which is slightly improved from yesterday. The patient diuresed 4 liters our yesterday, currently net negative, balance of negative 3.2 liters. Current weight is 66 kg from admission weight of 68.7 kg. She denies any lightheadedness or dizziness when ambulating and going from supine to sitting and standing position. Telemetry showed uncontrolled atrial fibrillation. Metoprolol has been increased to 37.5 mg every 6 hours. The patient has no other complaints. VITAL SIGNS: Temperature is 98.5, pulse 80, respiratory rate 18, blood pressure 127/78, 92% on 2 liters cannula. GENERAL: The patient is awake, alert, oriented times three. Answering questions appropriately. She has decreased jugular venous distention (JVD). No thyromegaly or cervical lymphadenopathy. Moist mucous membranes. LUNGS: Diminished with bibasilar crackles. HEART: S1, S2. Irregularly irregular and tachycardic. Systolic ejection murmur at the apex and left lower sternal border. Displaced point of maximum impulse (PMI). ABDOMEN: Soft, nontender, nondistended. EXTREMITIES: Has decreased edema. LABORATORY DATA: Complete blood count (CBC) and metabolic panel have been reviewed. Troponin is 0.04. CT of the abdomen and pelvis on 04/11/2019 shows bilateral pleural effusions and patchy lung base opacities, pneumonia cannot be excluded. Left lower lobe of the liver with abnormal density, right renal hydronephrosis, which is severe. Right groin mass is concerning, etiology tumor or pseudoaneurysm cannot be ruled out. Heavy calcific atherosclerotic disease of the abdominal aorta and iliac. 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 She presents to the emergency room with complaints of dyspnea. She was found to have atrial fibrillation, which is new onset, congestive heart failure (CHF), which is new onset, hypertensive emergency with renal artery stenosis noted on renal Doppler ultrasound. CURRENT ISSUES: 1. New onset atrial fibrillation with rapid ventricular response. The patient was on metoprolol 50 mg twice a day with uncontrolled rate, increased to 37.5 mg every 6 hours. Cardiology, Dr. Pimentel, has been consulted for further recommendations. She is currently on Eliquis for anticoagulation to prevent CVA. 2. Hypertensive emergency with congestive heart failure (CHF), which is new onset. She is currently on metoprolol and receiving Lasix diuresis. Had been on isosorbide and Norvasc, which have been discontinued. Defer to cardiology, Dr. Pimentel, for changes in her blood pressure medications. 3. New onset CHF with low ejection fraction. Ejection fraction of 35% with moderate mitral regurgitation, moderate tricuspid regurgitation, pulmonary hypertension with PA pressure of 60 to 70 mmHg. Currently being diuresed with Lasix to net negative balance daily. Fluid restriction, strict input and output. Per patient's family request, Dr. Pimentel has been consulted. 4. Renal artery stenosis. Vascular surgeon has been consulted. Unable to do stenting today due to severe calcification of the aorta. Attempt again in the morning. MTDD
[2019-04-12 18:36] LABS: CALCIUM LEVEL 9.9 MG/DL (8.8-10.2); CREATININE FOR GFR 1.53 MG/DL (0.55-1.30); GLOMERULAR FILTRATION RATE 34.7 (>32); MAGNESIUM LEVEL 2.5 MG/DL (1.8-2.4); POTASSIUM SERUM 4.6 MEQ/L (3.5-5.1)
[2019-04-12] MEDS: VITAMIN D 1,000 INTERNATIONAL UNITS TABLET PO SCH (21:00)
[2019-04-12] MEDS: MULTIVITAMINS/MINERALS THERAP 1 TAB PO SCH (21:01)
[2019-04-12] MEDS: ATORVASTATIN 20 MG TAB PO SCH (21:01)
[2019-04-13 04:00] VITALS: BP 142/68
[2019-04-13 06:14] LABS: CREATININE FOR GFR 1.56 MG/DL (0.55-1.30); GLOMERULAR FILTRATION RATE 33.9 (>32); MAGNESIUM LEVEL 2.1 MG/DL (1.8-2.4); POTASSIUM SERUM 3.9 MEQ/L (3.5-5.1)
[2019-04-13] MEDS: ISOSORBIDE DIN. (ISORDIL) 20 MG TAB PO SCH ×2 (06:18→11:50)
[2019-04-13] MEDS: **hydrALAZINE HCL** 25 MG TAB PO SCH ×2 (06:19→11:50)
[2019-04-13] MEDS: SLF 3 ML SYR IV SCH ×3 (06:19→21:11)
[2019-04-13 08:00] VITALS: BP 147/72
[2019-04-13] MEDS: APIXABAN 5 MG TAB (ELIQUIS) PO SCH ×2 (08:56→21:10)
[2019-04-13] MEDS: BISOPROLOL FUMARATE 5 MG TAB PO SCH ×2 (08:56→21:10)
[2019-04-13] MEDS: AMIODARONE 200 MG TAB (PACERONE) PO SCH ×4 (08:56→21:11)
--- NOTE | 2019-04-13 10:00 | REP ---
HISTORY: Followup. History of CHF. COMPARISON: 04/11/2019 The lung patel are better aerated today. There is global cardiomegaly. There is interstitial fibrotic change. There is a nodule in the left lower lobe which is unchanged. Diffusely increased interstitial markings have either improved or have improved due to better technique today. This should be correlated clinically. IMPRESSION: Chronic changes. There is a nodule in the left lower lobe. Prior CT of 04/09/2019 showed a large right and moderate left pleural effusion. The effusion could have easily obscured the nodule. I would suggest followup chest CT once the pleural effusions have abated. Electronically Signed by Spike Espinoza DO 04/13/2019 09:19 A
--- NOTE | 2019-04-13 10:14 | ECGEPIP ---
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
--- NOTE | 2019-04-13 10:31 | ECGEPIP ---
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
[2019-04-13 12:00] VITALS: BP 176/78
--- NOTE | 2019-04-13 12:05 | IPN ---
DATE: 04/12/2019 Patient seen and examined at the bedside. Chart has been reviewed. Dr. Miller has seen the patient and has adjusted her medications. Her heart rate is better controlled and currently has converted to sinus rhythm, on amiodarone 200 mg four times a day. She says that her dyspnea on exertion is only slightly improved, but she has no dyspnea at rest. She has slept well. She denies any chest pain, pressure or tightness. Denies any nausea, vomiting, epigastric discomfort. Denies any fever, chills or cough. No dysuria, urgency or frequency, diarrhea or abdominal pain. Temperature is 96.8, pulse 92, respiratory rate 18, blood pressure 132/70, 95% on room air. GENERAL: Patient is comfortable. She is awake, alert, oriented, answering questions appropriately. Speech is fluent. No use of respiratory or accessory muscles. There is decreased jugular venous distention (JVD). No thyromegaly or cervical lymphadenopathy. Moist mucous membranes. LUNGS: Diminished with fine crackles bibasilar. HEART: S1, S2. Regular rhythm. Tachycardic. Systolic ejection murmur at the apex and left lower sternal border. Displaced point of maximal impulse. ABDOMEN: Soft, nontender. Nondistended. Positive bowel sounds. No hepatosplenomegaly. No rebound, guarding, or distention. EXTREMITIES: No peripheral edema. LABORATORY DATA: CBC, metabolic panel have been reviewed. Notable for creatinine of 1.53, magnesium of 2.5. Input and output: Output of 5.2 liters. Negative 4950 yesterday. Negative 2.7 today. Weight is 61.58 kg. ASSESSMENT AND PLAN: This is an 83-year-old female who saw her physician a few months ago for clearance for knee replacement presented to the ER now with dyspnea, found to have atrial fibrillation with rapid ventricular response (RVR). New onset congestive heart failure (CHF), systolic dysfunction, hypertensive emergency. Workup included renal artery stenosis noted on renal Doppler ultrasound. CURRENT ISSUES: 1. New onset A-Fib with RVR. Patient was on metoprolol. Changed to amiodarone and currently sinus rhythm. Anticoagulated with Eliquis. 2. Hypertensive emergency. Currently on Zebeta with good blood pressure control. Hydralazine and isosorbide and spironolactone for diuresis. 3. CHF. New onset. Systolic dysfunction with low ejection fraction. On Lasix 40 IV every 6 hourly, spironolactone with good net negative diuresis for the past 2 days. 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 4. Acute kidney injury. Will continue to monitor for worsening azotemia. Renal artery stenosis, avoiding FLYNN inhibitors and ARBs. Unable to use Entresto due to renal failure as well as renal artery stenosis. Vascular surgery has been consulted. Due to severe atherosclerotic disease and calcification, unable to proceed with renal artery stent placement. MTDD
[2019-04-13 16:00] VITALS: BP 132/98
--- NOTE | 2019-04-13 17:52 | IPN ---
DATE: 04/13/2019 CARDIOLOGY PROGRESS NOTE SUBJECTIVE: The patient feels much improved with no further dyspnea. Continues to be remain free of any awareness of her heart action and no chest discomfort. Has been ambulating the pack without lightheadedness. OBJECTIVE: Heart rate currently 86 beats per minute and irregular still, blood pressure earlier today 176/78 despite our medication adjustments yesterday, respiratory rate is 16, oxygen saturation 98% on room air. Remains afebrile. Normal oral moisture. Trachea midline. Neck veins currently did not appear to be elevated. Has no sacral or lower leg swelling. Has improved air entry over both lung patel with no more than a few inspiratory rales, right base. 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 No laboratory studies were drawn today. Chest x-ray: PA and left lateral study performed today was reviewed independently and again shows cardiomegaly with an unfolded thoracic aorta with calcification of the aortic arch. Pulmonary vasculature is considerably less prominent. Improved interstitial markings and reduction in pleural effusion on the right side. Comment made regarding nodule, left lower lobe, and recommendation of a followup chest CT scan once her effusions have cleared. EKG: Tracing taken earlier this morning was again reviewed independently and shows persistent underlying atrial fibrillation with controlled ventricular response at 99 beats per minute (BPM). Continues to have obvious left ventricular hypertrophy with fairly diffuse repolarization abnormalities, definite slower rate than her last study performed yesterday. IMPRESSION/PLAN: 1. Persistent atrial fibrillation: Despite her brief conversion to sinus rhythm several days ago, continues to be in atrial fibrillation at this time; however, on her combination bisoprolol and amiodarone, her ventricular response has improved. Remains on Eliquis. Does report persistence of right groin hematoma following her recent attempted renal artery angioplasty. 2. Abnormal EKG: Remains free of symptomatic myocardial ischemia despite impressive repolarization abnormalities that persist. As previously mentioned, has obvious left ventricular hypertrophy, again, as shown with echocardiographic and chest CT scan findings. We will continue to concentrate on heart rate control with her bisoprolol. Also remains on isosorbide dinitrate, the dosage of which I have increased in light of her blood pressure. We have also started atorvastatin along with her Eliquis. 3. Heart failure (systolic and diastolic dysfunction [acute on chronic]): As previously noted, I doubt this is a new phenomenon but likely clearly aggravated by her atrial fibrillation and rapid ventricular response (i.e., tachycardia-mediated cardiomyopathy phenomenon). Symptomatically and clinically dramatically improved. Her followup PA and left lateral chest x-ray also confirms significant reduction in congestion. Again, continued optimal heart rate control would be considered a pierce measure. She is tolerating combination isosorbide dinitrate and hydralazine. Diuretic therapy is on hold at present. Followup chemistry will be obtained tomorrow, and should this show some improvement, our intent is to resume a low-dose loop diuretic along with low-dose spirolactone. 4. Hypertensive heart disease (benign with heart failure): Interestingly, despite adjusted increased combination medical therapy, her systolic blood pressure is actually increased. This may well be a manifestation of improved cardiac output with her vasodilators. As mentioned, I have increased the dosage of her vasodilators with hydralazine going to 50 mg three times a day and isosorbide dinitrate to 30 mg three times a day. Her bisoprolol will remain 5 mg twice a day, and, as mentioned, she is off diuretic therapy until we reassess her chemistry tomorrow morning. 5. 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 No symptoms or signs of endocarditis. Significantly mean left atrial pressure of some chronicity is likely responsible for the CT scan documented at least mildly dilated right heart chambers and echocardiographic/Doppler estimated severe pulmonary hypertension. We will continue to follow her closely with you and appreciate the opportunity to participate in her care.
[2019-04-13] MEDS: **hydrALAZINE** 50 MG TAB PO SCH (17:55)
[2019-04-13] MEDS: ISOSORBIDE DIN. (ISORDIL) 30 MG TAB PO SCH (17:55)
[2019-04-13 20:00] VITALS: BP 139/67
[2019-04-13] MEDS: MULTIVITAMINS/MINERALS THERAP 1 TAB PO SCH (21:09)
[2019-04-13] MEDS: VITAMIN D 1,000 INTERNATIONAL UNITS TABLET PO SCH (21:10)
[2019-04-13] MEDS: ATORVASTATIN 20 MG TAB PO SCH (21:10)
--- NOTE | 2019-04-13 21:45 | IPN ---
DATE: 04/12/2019 CARDIOLOGY PROGRESS NOTE SUBJECTIVE: The patient continues to feel some dyspnea and palpitations with ambulation in the room but is considerably improved from her admission. Denies any lightheadedness or faintness. No history of effort-related chest discomfort. OBJECTIVE: Pleasant, bright, elderly lady of medium body build, lying comfortably with head of bed elevated 30 degrees. Current heart rate 100 beats per minute and irregular, blood pressure 150/70 supine, actually increasing sitting up to 156/68, respiratory rate 18 with oxygen saturation 95% on room air. Afebrile. Weight 136 pounds, height 63 inches, body mass index (BMI) 24. Normal oral moisture. No central cyanosis. Trachea midline. Neck veins appear to be 2 cm above the sternal angle. Brisk carotid upstroke with normal to increased pulse volume, but the latter was somewhat variable with her arrhythmia. Transmitted bruit from the precordium. Normal chest configuration and chest expansion with few bibasilar inspiratory crepitations. Apical impulse at the midclavicular line/fifth intercostal space. S1 and S2 were variable. Has a variable systolic ejection murmur along the left sternal border radiating to the right base but also audible at the apex. No clearly separate audible mitral murmur. No diastolic murmur. No current dependent edema. Pedal pulses were symmetrical and palpable. 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 EKG: Tracing taken earlier today reviewed independently shows underlying atrial fibrillation with somewhat rapid ventricular response, averaging 115 beats per minute. Prominent voltages in strain pattern, consistent with left ventricle hypertrophy. Portable upright chest x-ray 04/11/2019 was reviewed independently and shows obvious cardiomegaly, even allowing for this portable technique. Her thoracic aorta was slightly unfolded with calcification of the aortic arch. Pulmonary vasculature appeared to be prominent with increased interstitial markings and significant right pleural effusion. Chest CT scan: Study performed 04/09/2019 was reviewed independently, and this shows an aortic root that was upper limits of normal at 3.7 cm. Her pulmonary trunk was significantly dilated at 3.2 cm. There was considerable atherosclerotic change of the aorta. Her left atrium was at least mild to moderately increased in size. Left ventricular size was normal with a degree of left ventricle hypertrophy. The right ventricle was also at least mildly dilated and the right atrium prominently dilated. Her inferior vena cava was mildly dilated to 2.5 cm. There was considerable calcification of the mitral annulus and some aortic valvular calcification. No pericardial effusion. Findings in keeping with hypertensive heart disease and possibly mitral valvular disease with elevated mean left atrial pressure and significant pulmonary hypertension, leading to right heart failure. LABORATORY DATA: Blood work today showed a hemoglobin of 12.6. Normal white blood cell count and platelet count. She has a degree of metabolic alkalosis, likely related to her intravenous (IV) Lasix. She has lost some 7 kg of edema fluid. Other electrolytes were in balance. Magnesium level was 2.5. BUN has climbed from 18 on April 09 to 33, and creatinine has increased from 0.78 to 1.5. ProBNP level 04/11/2019 was 10,024. IMPRESSION/PLAN: 1. Recurrent atrial fibrillation with rapid ventricular response: In light of her heart failure, mitral and hypertensive heart disease with left atrial enlargement, and ongoing rapid ventricular response her medications were changed. Metoprolol succinate was switched to bisoprolol 5 mg twice a day and a dose of digoxin was given intravenously for rate control. She was also started on amiodarone 200 mg four times a day as a loading dose. It was evident with her left atrial size and underlying heart disease that she was likely to have recurrent atrial fibrillation. Continues on Eliquis 5 mg twice a day. A followup EKG will be obtained in the morning. 2. Heart failure (systolic and diastolic/acute on chronic acute): Despite the patient's insistence she had not had symptoms prior to perhaps several weeks ago, her elevated BNP level and findings on her chest CT scan as well as echocardiogram and EKG tend to suggest conditions of some chronicity. She has had an impressive response to diuretic therapy with 7 kg decrease in body weight with development of a degree of azotemia. At this point, we have placed her diuretics and potassium supplement on hold. She will remain on a modest salt and fluid intake restriction. 3. Hypertensive heart disease (benign with heart failure): Based on her echocardiographic and CT scan findings, I suspect she has had a degree of hypertension of some chronicity. Her EKG would also support this. Present blood pressure remains mildly elevated. Chemistry changes as noticed above. I am cautiously optimistic that she will have adequately controlled blood pressure with a combination of bisoprolol, isosorbide mononitrate, and hydralazine with least low-dose diuretic therapy. 4. Abnormal EKG: Despite multiple potential coronary risk factors, the patient has been free of any symptomatic myocardial ischemia. Tracing primary shows left ventricle hypertrophy. Develops impressive repolarization abnormalities with recurrent bouts of atrial fibrillation. Based on these findings, it would be prudent to consider an objective definition of her coronary prognosis with noninvasive cardiac testing as an outpatient, i.e., pharmacological stress heart scan. Currently remains on protective bisoprolol and isosorbide dinitrate with Eliquis. With her extensive atherosclerotic vascular change, including suspected stenosis of the abdominal aorta and left renal artery stenosis, we have also introduced atorvastatin. 5. Mitral and aortic valve disorder (nonrheumatic): Echocardiographic evidence of at least moderately severe mitral regurgitation on the basis of mitral annular calcification. Also has a calcified aortic valve but apparently adequate cusp separation and no insufficiency. Fortunately, no symptoms or signs of endocarditis. I will continue to follow her closely with you and appreciate the opportunity to participate in her care. MIRANDA
[2019-04-13 23:59] VITALS: BP 122/71
[2019-04-14 04:00] VITALS: BP 142/67
[2019-04-14 05:57] LABS: ALBUMIN 2.9 GM/DL (3.2-5.2); BILIRUBIN,TOTAL 0.7 MG/DL (0.2-1.0); CALCIUM LEVEL 8.6 MG/DL (8.8-10.2); CREATININE FOR GFR 1.83 MG/DL (0.55-1.30); GLOMERULAR FILTRATION RATE 28.2 (>32); POTASSIUM SERUM 3.7 MEQ/L (3.5-5.1); TOTAL PROTEIN 7.1 GM/DL (6.4-8.2)
[2019-04-14] MEDS: ISOSORBIDE DIN. (ISORDIL) 30 MG TAB PO SCH ×3 (06:38→17:15)
[2019-04-14] MEDS: **hydrALAZINE** 50 MG TAB PO SCH ×3 (06:39→17:15)
[2019-04-14] MEDS: SLF 3 ML SYR IV SCH ×3 (06:40→20:51)
[2019-04-14 08:00] VITALS: BP 145/65
--- NOTE | 2019-04-14 08:39 | ECGEPIP ---
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
--- NOTE | 2019-04-14 09:00 | REP ---
HISTORY: Dyspnea. COMPARISON: 04/13/2019 The technique utilized in obtaining the radiograph has magnified the cardiac silhouette and accentuated the interstitial markings. Interstitial fibrotic changes with basilar predominance, right greater than left, status quo. Chronic cardiophrenic angle and costophrenic angle blunting on the right, status quo. No acute patchy parenchymal opacities or pleural effusions have developed. The cardiac silhouette is accentuated by technique. There is cardiomegaly. There is no change in the osseous structures. IMPRESSION: Chronic changes. Note is again made of a nodule in the left lower lobe. Electronically Signed by Spike Espinoza DO 04/14/2019 10:02 A
[2019-04-14] MEDS: BISOPROLOL FUMARATE 5 MG TAB PO SCH ×2 (10:13→20:50)
--- NOTE | 2019-04-14 10:13 | CR.PDOC ---
General Date of Consultation: Apr 14, 2019 Referring Provider: WILLIS CARBAJAL MD Consultation REASON FOR CONSULTATION/CHIEF COMPLAINT: Right hydronephrosis. HISTORY OF PRESENT ILLNESS: 83-year-old female who was admitted for acute onset of shortness of breath. Patient was found to have atrial fibrillation with a rap id ventricular response. Patient was also found to be in congestive heart failure with pulmonary edema. She was found to have uncontrolled hypertension which was found to be secondary to a left renal artery stenosis. Patient underwent a CT scan of the abdomen and pelvis which reported right hydronep hrosis with no evidence of right hydroureter. Patient denies a history of stone disease. She denies a history of colic. Patient denies a history of urinary tract infections. She denies hematuria. CT scan was reviewed and right hydronephrosis was present with no hydroureter. There is no evidence of left hydronephrosis. Creatinine has been slowly increasing over the past 2-3 days and is currently at 1.8. ALLERGIES: Please see below. HOME MEDICATIONS: Please see below. PAST MEDICAL HISTORY: Patient reports she had been previously healthy with no major medical history prior to admission. PAST SURGICAL HISTORY: 1. Amputation of the toe 2. Left total knee replacement 3. Bilateral mastectomy SOCIAL HISTORY: Nonsmoker REVIEW OF SYSTEMS: CONSTITUTIONAL: Negative. HEENT: Negative. CARDIOVASCULAR: Shortness of breath. RESPIRATORY: Shortness of breath. GENITOURINARY: See HPI. MUSCULOSKELETAL: Negative. GASTROINTESTINAL: Negative. SKIN: Negative. NEUROLOGICAL: Negative. PSYCHIATRIC: Negative. ENDOCRINE: Negative. HEMATOLOGIC/LYMPHATIC: Negative. ALLERGIC/IMMUNOLOGIC: Negative. PHYSICAL EXAMINATION: VITAL SIGNS: Please see below. GENERAL APPEARANCE: Well-developed well-nourished female sitting comfortably in the chair. HEENT: Unremarkable. RESPIRATORY: No respiratory distress. CARDIOVASCULAR: Mild peripheral edema. ABDOMEN: Soft nontender with no CVA tenderness. EXTREMITIES: Full range of motion. NEUROLOGICAL: Awake and alert, oriented 3. LABORATORY DATA: Please see below. ASSESSMENT/PLAN: 1. Right hydronephrosis. 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 2. Renal insufficiency. I suspect patient has decreased left renal function from her renal artery stenosis. This likely was compromise by receiving IV contrast and her recent diuresis for congestive heart failure. I would recommend obtaining a diuretic renal scan to assess the function of each kidney and to determine the degree of obstruction from the right ureteropelvic junction I will follow with you during her hospitalization. Thank you very much for this consultation. Vital Signs/I&O Vital Signs Date Time Temp Pulse Resp B/P (MAP) Pulse Ox O2 Delivery O2 Flow Rate FiO2 04/14/19 08:00 96.8 61 18 145/65 (91) 94 04/12/19 02:00 2.0 04/08/19 22:00 Room Air I&O- Last 24 Hours up to 6 AM 04/14/19 06:00 Intake Total 1880 ml Output Total 900 ml Balance 980 ml Laboratory Data Labs 24H Laboratory Tests 2 04/14/19 04:49: Anion Gap 5L, Glomerular Filtration Rate 28.2L, Blood Urea Nitrogen 35H, Creatinine 1.83H, Sodium Level 135L, Potassium Level 3.7, Chloride Level 96L, Carbon Dioxide Level 34H, Calcium Level 8.6L, Aspartate Amino Transf (AST/SGOT) 19, Alanine Aminotransferase (ALT/SGPT) 43, Alkaline Phosphatase 95, Total Bilirubin 0.7, Total Protein 7.1, Albumin 2.9L, Albumin/Globulin Ratio 0.69L CBC/BMP Laboratory Tests 04/14/19 04:49 Calcium Level 8.6 L, Aspartate Amino Transf (AST/SGOT) 19, Alanine Aminotransferase (ALT/SGPT) 43, Alkaline Phosphatase 95, Total Bilirubin 0.7, Total Protein 7.1, Albumin 2.9 L Allergies Coded Allergies: No Known Allergies (Unverified , 04/08/19) Home Medications Scheduled Apixaban (Eliquis) 5 Mg Tablet, 5 MG PO BID for 30 Days, #60 Biotin (Biotin) Unknown Strength Capsule, 1 CAP PO QHS, (Reported) Cholecalciferol (Vitamin D3) (Vitamin D3) 1,000 Unit Tablet, 1,000 UNIT PO QHS, (Reported) Glucosa Singleton 2Kcl/Chondroitin Singleton (Glucosamine & Chondroitin Cap) 1 Each Capsule, 1 EACH PO QHS, (Reported) Lutein (Lutein) Unknown Strength Capsule, 1 CAP PO QHS, (Reported) Metoprolol Tartrate (Lopressor) 50 Mg Tablet, 50 MG PO BID for 30 Days, #60 Multivitamins (Thera M Plus Tablet) 1 Each Tablet, 1 TAB PO QHS, (Reported) Java-3 Fatty Acids/Fish Oil (Fish Oil 1,000 mg Capsule) 1 Each Capsule, 1,000 MG PO QHS, (Reported) Ubidecarenone (Co Q-10) Unknown Strength Capsule, 1 CAP PO QHS, (Reported) Leighton Morales MD Apr 14, 2019 10:12
[2019-04-14] MEDS: AMIODARONE 200 MG TAB (PACERONE) PO SCH ×4 (10:14→20:51)
[2019-04-14] MEDS: APIXABAN 5 MG TAB (ELIQUIS) PO SCH ×2 (10:14→20:51)
--- NOTE | 2019-04-14 10:29 | IPN ---
DATE: 04/13/2019 Patient seen and examined at the bedside. Chart has been reviewed. Patient denies any chest pain, pressure, tightness, dizziness, dyspnea on exertion, paroxysmal nocturnal dyspnea (PND), or lightheadedness when she gets up to walk to the bathroom. She does complain of right lower quadrant enlarging mass where the catheterization had been performed. Patient remains irregular on telemetry. Some regular rhythm earlier in the morning, currently on amiodarone. Blood pressure is improved at 147 systolic, currently on hydralazine, isosorbide, Zebeta. No other issues overnight. Patient is anxious about the left renal artery stenosis. Dr. Weeks was consulted for possible renal artery stent placement, however, patient had significant calcification of the aorta and unable to find the left renal artery. CT abdomen and pelvis was performed for better visualization. Patient complains of thirst and chapped lips. PHYSICAL EXAMINATION: Vitals: Temperature is 97.2, pulse 79, respiratory rate 18, blood pressure 147/72, 95% on room air. GENERAL: Patient is awake, alert, oriented times three, answering questions appropriately. No conversational dyspnea. There is no use of respiratory accessory muscles. No jugular venous distention (JVD). No thyromegaly or cervical lymphadenopathy. Dry mucous membranes. LUNGS: Diminished breath sounds with bibasilar fine crepitations. HEART: S1, S2 irregularly irregular. Systolic ejection murmur at the apex, left lower sternal border. Displaced point of maximal impulse. No carotid bruits. ABDOMEN: Soft. Slightly tender in the right lower quadrant with a mobile mass measuring about 3.5 cm in length and 1.5 cm in diameter. Appears to be a hematoma. Nondistended abdomen. No hepatosplenomegaly. No rebound, guarding. EXTREMITIES: No pitting edema. LABORATORY DATA: CBC and metabolic panel have been reviewed. Notable for a creatinine of 1.56. Input and output: Input overnight was 1320, output of 3800, negative 2480. Current weight is 62 kg from admission weight of 68.18 kg. 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 Acute issues are as follows: 1. Congestive heart failure (CHF) with depressed low ejection fraction of 35%, moderate mitral regurgitation, moderate tricuspid regurgitation, PA pressure of 60-70 mmHg status post Lasix diuresis with acute kidney injury. Fluid restriction, strict intake and output. Dr. Miller has been consulted for management of the patient's CHF, currently on hydralazine and nitrates due to acute kidney injury. Atorvastatin, bisoprolol managed by cardiology. 2. Hypertension, improved. Currently on bisoprolol, hydralazine and isosorbide. 3. Atrial fibrillation with RVR. Currently on amiodarone 200 mg four times a day, with significant improvement. Eliquis for prophylaxis and prevention of CVA. 4. Left renal artery stenosis. Defer to vascular surgery for stent placement. MTDD
[2019-04-14 12:00] VITALS: BP 157/74
[2019-04-14 16:00] VITALS: BP 145/64
--- NOTE | 2019-04-14 19:02 | IPN ---
DATE: 04/14/2019 CARDIOLOGY PROGRESS NOTE SUBJECTIVE: The patient has been up ambulating without shortness of breath or awareness of her heart action at this time. Still has a right groin hematoma that is slightly sore, no dizziness or faintness or effort related chest discomfort. OBJECTIVE: Pleasant bright elderly woman of medium body build laying comfortably with the head of bed elevated at 30 degrees. Current heart rate 70 beats per minute and regular with occasional irregularity. Blood pressure 145/85, respiratory rate 16, O2 saturation 94% on room air. Afebrile. Weight 136 pounds, height 63 inches, BMI 24. Normal oral moisture. No central cyanosis. No pallor. Trachea midline. Neck veins were not elevated. Has improved air entry over both lung patel with only subtle right basilar inspiratory rales similar to yesterday. No pedal edema. 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 EKG: Tracing reviewed this morning shows sinus rhythm at 60 bpm with isolated PAC. Left atrial conduction disturbance, obvious left ventricle hypertrophy. ST/T-wave abnormalities not changed from yesterday. Blood work: Electrolytes today were essentially stable showing a slight metabolic alkalosis, potassium down to 3.7, BUN minimally higher at 35, creatinine minimally higher at 1.83, fasting glucose 99, albumin 2.9 with calcium of 8.6. Other liver function studies were normal. IMPRESSION/PLAN: 1. Paroxysmal atrial fibrillation: Gratifyingly converted to a sustained sinus mechanism with her combination of bisoprolol and amiodarone. Currently has no awareness of her heart action. We have placed a hold parameter for her bisoprolol for heart rate less than 60 bpm. Will continue on the same amiodarone 200 mg four times a day for one week prior to decreasing the dose to 200 mg three times a day for 2 weeks, then 200 mg twice a day for one month and ultimately one tablet daily. 2. Abnormal EKG: Remains free of symptomatic myocardial ischemia on her current level of activity. Repolarization abnormalities do not show any serial change. Beta-marcelino bisoprolol withheld today because of her somewhat slow heart rate, but this will continue with hold parameters. No change is planned to her isosorbide dinitrate, atorvastatin and Eliquis. 3. Heart failure (systolic and diastolic/acute on chronic): Currently, appears to be euvolemic without symptom or obvious sign of congestion. I believe the pierce management measures would be to maintain a sinus mechanism and controlled heart rate. We are cautiously optimistic that her observed left ventricular systolic dysfunction will improve with a sustained controlled rhythm. In light of her controlled blood pressure compensated state and slightly worsening azotemia, we have elected to continue her off diuretic therapy. No change has been made to her present isosorbide dinitrate and hydralazine. 4. Hypertensive heart disease (benign with heart failure): Current blood pressure would be considered adequately controlled given her documented renal vascular disease. As mentioned, we do not intend to resume diuretic therapies with her present BUN and creatinine elevation. Continues on protective combination bisoprolol, isosorbide dinitrate and hydralazine. 5. 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 Remains free of symptom or sign of endocarditis. I am unsure what the exact plan is regarding her renal artery stenosis, but Urology consultation had been requested in light of right hydronephrosis. This was not believed to be the cause of her worsening azotemia, but her renal artery stenosis. I understand a diuretic renal scan is planned for tomorrow. We will continue to follow her closely with you and appreciate the opportunity to participate in her care. MIRANDA
[2019-04-14 20:00] VITALS: BP 158/70
[2019-04-14] MEDS: VITAMIN D 1,000 INTERNATIONAL UNITS TABLET PO SCH (20:50)
[2019-04-14] MEDS: MULTIVITAMINS/MINERALS THERAP 1 TAB PO SCH (20:51)
[2019-04-14] MEDS: ATORVASTATIN 20 MG TAB PO SCH (20:51)
[2019-04-14 23:59] VITALS: BP 154/67
[2019-04-15 01:10] LABS: APPEARANCE, URINE HAZY (CLEAR); BACTERIA, URINE AUTO NEGATIVE (NEGATIVE); BILIRUBIN, URINE AUTO NEGATIVE (NEGATIVE); BLOOD, URINE BLOOD NEGATIVE (NEGATIVE); COLOR, URINE YELLOW (YELLOW); GLUCOSE, URINE (UA) AUTO NEGATIVE (NEGATIVE); KETONE, URINE AUTO NEGATIVE (NEGATIVE); LEUKOCYTE ESTERASE, URINE AUTO 3+ (NEGATIVE); NITRITE, URINE AUTO NEGATIVE (NEGATIVE); PROTEIN, URINE AUTO NEGATIVE (NEGATIVE); RBC, URINE AUTO 3 /HPF (0-3); SPECIFIC GRAVITY URINE AUTO 1.014 (1.002-1.035); SQUAMOUS EPITHELIAL CELL UR AU 1 /HPF (0-6); UROBILINOGEN, URINE AUTO 0.2 mg/dL (0.0-2.0); WBC, URINE AUTO 53 /HPF (0-3)
[2019-04-15 04:00] VITALS: BP 163/70
[2019-04-15] MEDS: SLF 3 ML SYR IV SCH ×3 (05:26→22:12)
--- NOTE | 2019-04-15 07:40 | CR ---
DATE OF CONSULTATION: 04/14/2019 REASON FOR CONSULTATION: Acute renal failure in this lady who was admitted with atrial fibrillation and congestive heart failure. 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 She does not have any significant past medical history. She reports that she had a healthy life and did not have any hypertension or known kidney problems. Her creatinine was 1.0 on admission on April 08. She had a CT angiogram done on the day of admission due to shortness of breath which was negative for pulmonary embolus. She was noticed to have right-sided hydronephrosis on renal ultrasound and there was a suspicion for left renal artery stenosis. On April 11 she had intervention done for left renal artery stenosis. However, it is not clear if the procedure was successful. In any event, a followup CT scan of abdomen and pelvis showed now severe right hydronephrosis without any hydroureter. She was initially diuresed but currently off diuretics. Her creatinine is increased to 1.8 today and a nephrology consultation was requested. The patient is seen this morning on her bedside. PAST MEDICAL AND SURGICAL HISTORY: Significant for no history of hypertension. 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 MEDICATIONS: Her home medications included biotin, glucosamine and chondroitin, omega 3, coenzyme Q 10, multivitamin or vitamin D. ALLERGIES She has NO KNOWN DRUG ALLERGIES. 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 She quit smoking about 30 years ago and has no history of alcohol or drug use. FAMILY HISTORY: Significant for coronary artery disease but no history of kidney problems. REVIEW OF SYSTEMS: At present she is feeling well and denies any dyspnea or chest pain. She was admitted with shortness of breath and new-onset atrial fibrillation. She has already converted back to sinus rhythm. She has no fever or chills. Ears, nose and throat are unremarkable. Cardiovascular system significant for new-onset atrial fibrillation and hypertension. She was also noticed to have congestive heart failure and echocardiogram was consistent with systolic and diastolic dysfunction with pulmonary hypertension. GI system negative for nausea or vomiting. system is negative for dysuria or hematuria. Endocrine system is negative for diabetes or thyroid problems. Hematological system is negative for any easy bruising or excessive bleeding. Psychosocial system negative for depression, anxiety. Neurological system negative for seizures or stroke. Skin is negative for rash or ulcers. PHYSICAL EXAMINATION: Temperature 97.2 degrees Fahrenheit, heart rate 60 per minute and respiratory rate 20 per minute. Blood pressure 157/74 mmHg and oxygen saturation 97% on room air. Head is atraumatic. Pupils equal and reactive to light and sclera is anicteric. Neck is supple and without JVD or thyroid enlargement. Trachea is midline. Heart: Sounds are regular at present and systolic murmur grade 2/6 is audible. Lungs sound clear to auscultation bilaterally. Abdomen: Soft and nontender and without a palpable organomegaly. Bowel sounds are normal. There is no audible abdominal bruit. Extremities: Have no cyanosis or clubbing. Skin has no rash or ulcers. Neurologically she is awake, alert and oriented times three. LABORATORY DATA: On admission her BUN was 26 and creatinine 1.0 on April 08. On April 10 BUN was 30 and creatinine 0.96 while an April 11 in her BUN was 30 and creatinine 1.13. On April 12 her creatinine went up to 1.53 which is now up to today 1.83. BUN is 35. Sodium 135, potassium 3.7, CO2 34, calcium 8.6. Hemoglobin is 12.6 and hematocrit 38.6 on April 10. Chest x-ray Most recent one done this morning showed chronic changes and a left lower lobe nodule. She does have a right-sided pleural effusion. Renal ultrasound showed moderate right hydronephrosis and a CT scan of abdomen and pelvis showed severe root right hydronephrosis. PROBLEMS: 1. Acute renal failure superimposed on chronic kidney disease. Her GFR was about 56 on admission with serum creatinine 1.0, which has now increased to a creatinine of 1.83 today and a GFR of 28.2. She did have a CT angiogram on April 08 and further diet for renal angiogram with possible angioplasty attempt. She has right-sided hydronephrosis which is felt to be due to chronic UPJ obstruction as there is no hydroureter. She has severe atherosclerosis of her abdominal aorta with very high risk for renal artery stenosis. She has also been diuresed when she had atrial fibrillation and congestive heart failure. A urinalysis has not been done as yet. Will get a urinalysis to rule out any possibility of hematuria or proteinuria. I feel that most likely her acute renal failure is related to dye studies and chronic right-sided hydronephrosis. A nuclear renal scan with Lasix is being ordered for tomorrow. She is not on any nephrotoxic medications and diuretic has already been stopped. Her renal function is likely to improve over next few days if it is related to contrast induced nephropathy. At this point we will watch and monitor while waiting for results of her nuclear renal scan. 2. Congestive heart failure, volume status is clinically well-compensated and diuretic has already been stopped. She is being followed by cardiology. 3. Hypertension. The patient is currently on hydralazine, bisoprolol and isosorbide. I would recommend to avoid FLYNN inhibitor or angiotensin receptor blockers. Thank you for involving me in the care of Mrs. Denney. I will follow her along with you.
[2019-04-15 08:00] VITALS: BP 144/50
[2019-04-15] MEDS: AMIODARONE 200 MG TAB (PACERONE) PO SCH ×4 (08:18→22:11)
[2019-04-15] MEDS: **hydrALAZINE** 50 MG TAB PO SCH ×3 (08:19→17:17)
[2019-04-15] MEDS: APIXABAN 5 MG TAB (ELIQUIS) PO SCH ×2 (08:19→22:11)
[2019-04-15] MEDS: ISOSORBIDE DIN. (ISORDIL) 30 MG TAB PO SCH ×3 (08:19→17:17)
[2019-04-15] MEDS: BISOPROLOL FUMARATE 5 MG TAB PO SCH ×2 (08:20→22:12)
[2019-04-15 08:27] LABS: BASO % 0.4 % (0.0-1.0); EOS # 0.3 10^3/uL (0.0-0.50); EOS % 4.1 % (0.0-3.0); HEMATOCRIT 37.6 % (36.0-47.0); HEMOGLOBIN 12.4 g/dl (12.0-15.5); LYMPH # 0.7 10^3/uL (1.5-4.5); LYMPH % 9.2 % (24.0-44.0); MEAN CORPUSCULAR VOLUME 96.9 fl (80.0-96.0); MONO # 0.9 10^3/uL (0.0-0.8); NEUTROPHILS # 5.8 10^3/uL (1.8-7.7); PLATELET COUNT, AUTOMATED 274 10^3/uL (150-450); RED BLOOD COUNT 3.88 10^6/uL (4.00-5.40); WHITE BLOOD COUNT 7.8 10^3/uL (4.0-10.0)
[2019-04-15 08:53] LABS: ALBUMIN 2.9 GM/DL (3.2-5.2); BILIRUBIN,TOTAL 0.7 MG/DL (0.2-1.0); CALCIUM LEVEL 8.6 MG/DL (8.8-10.2); CREATININE FOR GFR 1.73 MG/DL (0.55-1.30); GLOMERULAR FILTRATION RATE 30.1 (>32); POTASSIUM SERUM 3.7 MEQ/L (3.5-5.1); TOTAL PROTEIN 7.1 GM/DL (6.4-8.2)
[2019-04-15 12:00] VITALS: BP 156/69
--- NOTE | 2019-04-15 13:07 | IPNPDOC ---
Date Seen The patient was seen on 04/15/19. Progress Note Vascular surgery. Dr. Weeks HPI: 83 year old F who was seen at urgent care and was found to have new atrial fibrillation and was instructed to come to the emergency room (ER). She was found to be in atrial fibrillation with rapid ventricular response with heart rates of 120. She was admitted to the hospitalist service. Renal ultrasound was obtained related to HTN indicating left renal artery stenosis. Vascular surgery is consulted. PMHx: History of breast cancer PE: GEN: 83 yo F, appears stated age. No acute distress. HEENT: Normocephalic, atraumatic. Conjunctiva without injection. Moist mucous membranes. CHEST: Regular rate and rhythm, +S1, +S2 LUNGS: Clear to auscultation bilaterally. No wheezes, rales, or rhonchi. ABD: Round, soft, non-tender, non-distended. EXT: Feet are warm, good capillary refill. No lower extremity edema appreciated. SKIN: [place], dry, warm. No rashes. NEURO: Alert and oriented x 3. Cranial nerves III-XII are intact. No focal deficits appreciated. Renal ultrasound IMPRESSION: Moderate right hydroureteronephrosis. Bilateral pleural effusions. Elevated flow velocity in the abdominal aorta compatible with stenosis of the proximal abdominal aorta. Low resistive indices and elevated acceleration times of the left kidney suggest left renal artery stenosis, but there is limited visualization directly of the left renal artery. Elevated peak systolic velocity in the proximal right renal artery is likely falsely elevated due to the elevated flow velocities in the abdominal aorta. CTA, MRA, or conventional angiography would be needed to confirm renal artery stenosis. Unreviewed DD: Luis Roper MD, MD 04/10/19 1242 A&P: 1. Renal artery stenosis. The patient is reviewed and examined by Dr. Weeks. attempted renal artery angiogram 04/11/[address] A/P 04/11/19 There is advanced calcific atherosclerotic change seen throughout the abdominal aorta and iliac arteries. Plan to re attempt renal artery angiogram pending renal function trend. 2. CKD. Nephrology consulted. Monitor SCR trend. VS, I&O, 24H, Fishbone Vital Signs/I&O Vital Signs Date Time Temp Pulse Resp B/P (MAP) Pulse Ox O2 Delivery O2 Flow Rate FiO2 04/15/19 12:45 156/69 04/15/19 12:00 97.4 56 18 94 04/12/19 02:00 2.0 I&O- Last 24 Hours up to 6 AM 04/15/19 06:00 Intake Total 880 ml Output Total 850 ml Balance 30 ml Laboratory Data 24H LABS Laboratory Tests 2 04/15/19 00:30: Urine Appearance HAZY, Urine Color YELLOW, Urine pH 6.0, Urine Specific [place] 1.014, Urine Protein NEGATIVE, Urine Glucose (UA) NEGATIVE, Urine Ketones NEGATIVE, Urine Urobilinogen 0.2, Urine Bilirubin NEGATIVE, Urine Leukocyte Esterase 3+H, Urine Blood NEGATIVE, Urine Nitrite NEGATIVE, Urine WBC (Auto) 53H, Urine RBC (Auto) 3, Urine Hyaline Casts (Auto) 0, Urine Bacteria (Auto) NEGATIVE, Urine Squamous Epithelial Cells 1, Urine Sperm (Auto) 04/15/19 08:12: Immature Granulocyte % (Auto) 0.3, White Blood Count 7.8, Red Blood Count 3.88L, Hemoglobin 12.4, Hematocrit 37.6, Mean Corpuscular Volume 96.9H, Mean Corpuscular Hemoglobin 32.0, Mean Corpuscular Hemoglobin Concent 33.0, Red Cell Distribution Width 15.4H, Platelet Count 274, Neutrophils (%) (Auto) 74.0H, Lymphocytes (%) (Auto) 9.2L, Monocytes (%) (Auto) 12.0H, Eosinophils (%) (Auto) 4.1H, Basophils (%) (Auto) 0.4, Neutrophils # (Auto) 5.8, Lymphocytes # (Auto) 0.7L, Monocytes # (Auto) 0.9H, Eosinophils # (Auto) 0.3, Basophils # (Auto) 0.0, Nucleated Red Blood Cells % (auto) 0.0, Anion Gap 6L, Glomerular Filtration Rate 30.1L, Blood Urea Nitrogen 35H, Creatinine 1.73H, Sodium Level 134L, Potassium Level 3.7, Chloride Level 95L, Carbon Dioxide Level 33H, Calcium Level 8.6L, Aspartate Amino Transf (AST/SGOT) 16, Alanine Aminotransferase (ALT/SGPT) 35, Alkaline Phosphatase 93, Total Bilirubin 0.7, Total Protein 7.1, Albumin 2.9L, Albumin/Globulin Ratio 0.69L CBC/BMP Laboratory Tests 04/15/19 08:12 Red Blood Count 3.88 L, Mean Corpuscular Volume 96.9 H, Mean Corpuscular Hemoglobin 32.0, Mean Corpuscular Hemoglobin Concent 33.0, Red Cell Distribution Width 15.4 H, Neutrophils (%) (Auto) 74.0 H, Lymphocytes (%) (Auto) 9.2 L, Monocytes (%) (Auto) 12.0 H, Eosinophils (%) (Auto) 4.1 H, Basophils (%) (Auto) 0.4, Neutrophils # (Auto) 5.8, Lymphocytes # (Auto) 0.7 L, Monocytes # (Auto) 0.9 H, Eosinophils # (Auto) 0.3, Basophils # (Auto) 0.0, Calcium Level 8.6 L, Aspartate Amino Transf (AST/SGOT) 16, Alanine Aminotransferase (ALT/SGPT) 35, Alkaline Phosphatase 93, Total Bilirubin 0.7, Total Protein 7.1, Albumin 2.9 L Winifred Mcginnis Apr 15, 2019 13:07
[2019-04-15] MEDS ORDERED: FUROSEMIDE 20 MG/2 ML VIAL (J1940) As Ordered ONE (13:51)
[2019-04-15 16:00] VITALS: BP 142/65
--- NOTE | 2019-04-15 18:22 | IPN ---
DATE: 04/15/2019 CARDIOLOGY PROGRESS NOTE: SUBJECTIVE: Continues to notice tenderness and swelling over her right groin from her prior attempted renal arterial angioplasty but has been walking without chest discomfort, shortness of breath or dizziness. Remains unaware of her heart action. OBJECTIVE: Pleasant, bright, elderly woman of medium body build laying comfortably. Heart rate 62 beats per minute and regular at this time, blood pressure 142/65, respiratory rate 16, oxygen saturation 99% on room air. She is afebrile. Normal oral moisture with no central cyanosis or pallor. Trachea midline and neck veins did not appear to be elevated. Still has fine end-inspiratory crepitations suggestive of pulmonary fibrosis rather than pulmonary edema. She has no dependent edema. 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 LABORATORY STUDIES: Hemoglobin stable at 12.4, normal white blood cell count and platelet count. Has ongoing degree of metabolic alkalosis and slight hypokalemia despite her moderately severe renal insufficiency and has been off diuretic therapy for several days. BUN 35, creatinine 1.73 today, glucose 101, albumin 2.9. Liver function studies were otherwise normal. IMPRESSION/PLAN: 1. Paroxysmal atrial fibrillation: Has remained in sinus mechanism on amiodarone antiarrhythmic therapy. Bisoprolol has been on hold because of bradycardia that may also be related to amiodarone effect on the sinus node. Hopefully, we can avoid permanent pacemaker implant. For the time being remains on amiodarone loading dose of 200 mg four times a day. 2. Abnormal EKG: Has remained free of chest discomfort with her activities. No repeat tracing was taken today. Beta-marcelino, bisoprolol, withheld because of bradycardia. Remains on protective isosorbide dinitrate, atorvastatin and Eliquis. 3. Heart failure (systolic and diastolic/acute on chronic): Has no current symptoms or signs of congestion. Chest x-ray yesterday again notes cardiomegaly but no pulmonary venous congestion but ongoing accentuated interstitial markings in keeping with pulmonary fibrosis. Chronic blunting of her right costophrenic angle. No apparent pleural effusion. Note is made of her slight metabolic alkalosis and fortunately stable renal insufficiency at this time. 4. Hypertensive heart disease (benign with heart failure): At this point, her mildly elevated systolic blood pressure is not a major problem with her renal insufficiency. We are o f course reluctant to introduce diuretic therapy if not necessary. Underwent renal diuretic scan today to assess for right renal stenosis. Results are pending at this time. 5. Mitral and aortic valve disorder (nonrheumatic): No auscultatory change. No symptoms or signs of endocarditis. We will continue to follow her closely with you.
--- NOTE | 2019-04-15 19:11 | IPN ---
DATE: 04/14/2019 Patient denies any shortness of breath, chest pain, pressure, lightheadedness, dizziness, near syncope. She denies any cough. She slept well overnight. VITAL SIGNS: Temperature 96.8, pulse 61, respiratory rate 18, blood pressure 145/65, 94% on room air. GENERAL: Patient is awake, alert and oriented times three, answering questions appropriately. No conversational dyspnea, cyanosis, use of respiratory accessory muscles. NECK: No cervical lymphadenopathy or thyromegaly. No carotid bruits. LUNGS: Diminished, right-sided fine crackles, clear in the upper lobes. HEART: S1, S2, irregularly irregular, systolic ejection murmur at the apex and left lower sternal border, displaced point of maximal impulse (PMI). ABDOMEN: Soft, nontender, nondistended. Positive bowel sounds. No hepatosplenomegaly, rebound, guarding, distension. EXTREMITIES: No pitting edema, cyanosis, or clubbing. SKIN: Warm, dry, pink in color, well-perfused. Laboratory data and imaging studies have been reviewed. ASSESSMENT AND PLAN: This is an 83-year-old female with moderately severe mitral regurgitation, calcified aortic valve, hypertension, new onset atrial fibrillation, systolic dysfunction, ejection fraction (EF) of 35% with the following acute issues: 1. New onset atrial fibrillation with rapid ventricular rate, status post metoprolol, currently on amiodarone with paroxysmal atrial fibrillation, anticoagulated with Eliquis. 2. Hypertensive emergency, on Zebeta for good blood pressure control, hydralazine, isosorbide, and spironolactone which has been held due to worsening renal function. 3. Congestive heart failure with reduced ejection fraction, new onset, EF of 35%, status post Lasix and spironolactone with worsening creatinine. Currently on isosorbide and hydralazine. No angiotensin-converting enzyme (FLYNN) inhibitors or angiotensin-receptor blockers (ARBs) secondary to worsening renal dysfunction. 4. Renal artery stenosis, status post renal Doppler ultrasound. Vascular surgery has been consulted. Patient's blood vessels are heavily calcified and difficult to access, now with worsening renal function. 5 Atherosclerotic disease with heavy calcification. Unable to access left renal artery according to vascular surgery. 6. 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 Morales causing a right hydronephrosis, renal artery stenosis on the left due to atherosclerotic disease, overdiuresis and possible contrast nephropathy. Per Dr. 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 Patient's worsening creatinine was most likely secondary to left renal artery stenosis. However, he suggested doing a diuretic renography, Lasix renogram to determine function. We will defer to nephrology whether this should be pursued. 7. 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 Suggested diuretic renography which will be discussed with Dr. Thorpe and if no contraindication will be done on Monday. Defer to urology for cystoscopy and possible stent placement. However, worsening renal function is thought to be more secondary to the left artery stenosis. [facility]
[2019-04-15 20:00] VITALS: BP 160/72
--- NOTE | 2019-04-15 21:49 | IPN ---
DATE: 04/15/2019 Patient is seen and examined at the bedside. Chart has been reviewed. She denies any chest pain, pressure or tightness, shortness of breath, paroxysmal nocturnal dyspnea (PND), or orthopnea. She is eating well. No new complaints. Temperature 97.7, pulse 54, respiratory rate 18, blood pressure 144/50, 97% on room air. GENERAL: Awake, alert and oriented times three, answering questions appropriately. No use of accessory respiratory muscles. No cervical lymphadenopathy. Dry mucous membranes. No jugular venous distention. LUNGS: Clear to auscultation. No wheezes, rales, or rhonchi. HEART: S1, S2, sinus bradycardia. ABDOMEN: Soft, nontender, nondistended. EXTREMITIES: Have no pitting edema. Laboratory data, imaging studies, and microbiology have been reviewed. 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 IMPRESSION: 1. Acute congestive heart failure (CHF) with reduced ejection fraction of 35%, moderate mitral regurgitation (MR), moderate tricuspid regurgitation (TR), pulmonary artery (PA) pressure is 60 mmHg, status post Lasix diuresis with acute kidney injury. Patient is currently on hydralazine and isosorbide due to renal failure, unable to use angiotensin-converting enzyme (FLYNN) inhibitors or angiotensin-receptor marcelino (ARB), on Lipitor and Zebeta managed by cardiology. 2. Atrial fibrillation with rapid ventricular response (RVR), resolved. Currently paroxysmal atrial fibrillation, on amiodarone 200 four times a day and apixaban 5 mg twice a day for cerebrovascular accident (CVA) prophylaxis managed by cardiology. 3. Acute renal failure, secondary to mild right hydronephrosis, left renal artery stenosis and diuresis. Defer to Dr. Morales who has been consulted if the patient need cystoscopy and stent placement, Lasix renal scan, diuretic renography will be done today. Unable to proceed with renal artery stenosis stent placement due to renal dysfunction and inability to use contrast dye with fluoroscopy. 4. Renal artery stenosis. Awaiting kidney function to improve prior to moving forward with stent placement. Vascular surgery has been consulted. Patient has significant calcification, atherosclerotic disease of all the aorta and tributaries. 5. Left lower lobe pulmonary nodule. Outpatient followup with CT every three months. [facility]
[2019-04-15] MEDS: ATORVASTATIN 20 MG TAB PO SCH (22:11)
[2019-04-15] MEDS: MULTIVITAMINS/MINERALS THERAP 1 TAB PO SCH (22:11)
[2019-04-15] MEDS: VITAMIN D 1,000 INTERNATIONAL UNITS TABLET PO SCH (22:12)
[2019-04-15 23:59] VITALS: BP 156/64
[2019-04-16 04:00] VITALS: BP 160/64
[2019-04-16 05:44] LABS: ALBUMIN 2.9 GM/DL (3.2-5.2); CALCIUM LEVEL 8.8 MG/DL (8.8-10.2); CREATININE FOR GFR 1.86 MG/DL (0.55-1.30); GLOMERULAR FILTRATION RATE 27.7 (>32); PHOSPHORUS LEVEL 3.2 MG/DL (2.5-4.9); POTASSIUM SERUM 3.7 MEQ/L (3.5-5.1)
[2019-04-16] MEDS: SLF 3 ML SYR IV SCH ×3 (05:46→20:35)
[2019-04-16] MEDS: **hydrALAZINE** 50 MG TAB PO SCH ×3 (06:21→16:12)
[2019-04-16] MEDS: ISOSORBIDE DIN. (ISORDIL) 30 MG TAB PO SCH ×3 (06:21→16:11)
--- NOTE | 2019-04-16 07:30 | REP ---
NUCLEAR RENAL SCINTIGRAPHY WITH RENAL FUNCTION ANALYSIS AND PRE- AND POST LASIX RENOGRAPHY: HISTORY: Right-sided hydronephrosis. Left renal artery stenosis. Comparison CT study April 11, 2019. TECHNIQUE: 8.7 mCi technetium 99m MAG3 is injected and posterior flow and excretory phase images are acquired. Renal cortical regions of interest are drawn and time activity curves are plotted for renal function analysis. 20 mg of intravenous Lasix is administered and post Lasix renography is carried out. SCINTIGRAPHIC FINDINGS: Posterior flow study shows delayed perfusion on the left compared to the right. The right kidney is somewhat ptotic compared to the left in position. Excretory phase images demonstrate bilaterally impaired renal function with persistent nephrogram phase labeling bilaterally. There is absence of renal collecting system labeling on the left throughout the 28-minute imaging interval in the excretory phase. There is delayed partial labeling of the dilated renal pelvis and collecting system on the right at the end of the 28-minute the excretory phase imaging cycle. Differential renal function analysis is normal with 50% of renal cortical counts coming from each kidney. Abqu-[id number] activity is delayed bilaterally, 29 minutes on the left and 17 minutes on the right. [id number] max activity is over 30 minutes and significantly delayed bilaterally. Post Lasix sonography curves are flat bilaterally. On the right this is consistent with obstructive uropathy since there is significant right-sided hydronephrosis. On the left this could be due obstructive uropathy or renal arterial or venous vascular disease. IMPRESSION: Advanced obstructive uropathy right kidney with moderate hydronephrosis. Bilaterally severely impaired at excretory function. Electronically Signed by Yosef Ireland MD 04/16/2019 07:16 P
[2019-04-16 08:00] VITALS: BP 146/65
[2019-04-16] MEDS: CARVedilol 3.125 MG TAB PO SCH ×2 (08:49→20:34)
[2019-04-16] MEDS: APIXABAN 5 MG TAB (ELIQUIS) PO SCH ×2 (08:49→20:33)
[2019-04-16] MEDS: AMIODARONE 200 MG TAB (PACERONE) PO SCH ×2 (08:50→20:34)
--- NOTE | 2019-04-16 08:59 | IPNPDOC ---
Date Seen The patient was seen on 04/16/19. Progress Note SUBJECTIVE: Patient is comfortable without complaints OBJECTIVE LABORATORY DATA, IMAGING STUDIES, MICROBIOLOGY: Please see below. Renal scan shows decreased function bilaterally. Differential function of the right and left kidney are equal at 50%. T 1/2 is reported to be greater than 30 minutes bilaterally. Creatinine has stabilized between 1.7 and 1.8 ASSESSMENT AND PLAN: Patient has chronic renal insufficiency. 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 It is unlikely placing a nav ble-J stent will significantly improve her renal function and and would commit the patient to a chronic indwelling stent which would require a change every 3-4 months. Patient does not wish to have a stent placed at this time. I would recommend active surveillance and would not consider stent placement unless she has a significant deterioration in her renal functioning. VS, I&O, 24H, [facility] Vital Signs/I&O Vital Signs Date Time Temp Pulse Resp B/P (MAP) Pulse Ox O2 Delivery O2 Flow Rate FiO2 04/16/19 08:49 56 146/65 04/16/19 08:00 98.1 18 96 04/12/19 02:00 2.0 I&O- Last 24 Hours up to 6 AM 04/16/19 06:00 Intake Total 240 ml Output Total 900 ml Balance -660 ml Laboratory Data 24H LABS Laboratory Tests 2 04/16/19 04:34: Blood Urea Nitrogen 38H, Creatinine 1.86H, Sodium Level 130L, Potassium Level 3.7, Chloride Level 93L, Carbon Dioxide Level 31, Anion Gap 6L, Glomerular Filtration Rate 27.7L, Calcium Level 8.8, Phosphorus Level 3.2, Albumin 2.9L CBC/BMP Laboratory Tests 04/16/19 04:34 Anion Gap 6 L Leighton Moralse MD Apr 16, 2019 08:59
--- NOTE | 2019-04-16 09:05 | IPN ---
DATE OF VISIT: 04/15/2019 Mrs. Denney is seen this morning on her bedside. She is feeling well and denies any dyspnea, chest pain, palpitations, nausea or vomiting. She has no fever or chills. On physical examination, temperature 97.7 degrees Fahrenheit, heart rate 56 per minute and respiratory rate 18 per minute. Blood pressure 144/50 mmHg and oxygen saturation 97% on room air. Head is atraumatic. Neck is supple and without jugular venous distention (JVD) or thyroid enlargement. Heart sounds are regular at present and lungs sound clear to auscultation. Abdomen: Soft and nontender. Bowel sounds are normal. Extremities have no cyanosis or clubbing. Neurologically she has no focal deficit. Skin has no rash or ulcers. Today's labs show WBC count 7.8, hemoglobin 12.4 and hematocrit 37.6. Sodium 134, potassium 3.7, CO2 33, BUN 35 and creatinine 1.73. Glucose 101 and calcium 8.6. PROBLEMS: 1. Acute renal failure superimposed on chronic kidney disease. Her GFR was 56 on admission. Her kidney function deteriorated over the last [address] She had a [address] angiogram done and an attempt for renal angioplasty. She was also diuresed and had atrial fibrillation. I feel that the acute kidney injury is multifactorial. She was also noticed to have severe right hydronephrosis and the urologist feels that this is related to chronic ureteropelvic junction (UPJ) obstruction as she does not have a stone and there is no hydroureter. She has severe calcification and stenosis of her abdominal aorta and renal artery angioplasty could not be attempted. At this point, her kidney function is slightly improved compared with yesterday. We have ordered a nuclear renal scan with Lasix in order to evaluate blood flow and flow of her right kidney. 2. Hyponatremia. Mild hyponatremia does not need any intervention. This most likely is related to her congestive heart failure, acute renal failure and diuretic use. At present her diuretic is on hold. She will receive a dose of Lasix today when she gets her nuclear renal scan. 3. Atrial fibrillation and congestive heart failure. She is back in sinus rhythm now and has been on amiodarone and heart rate is now in the 50s. Her volume status has improved and diuretic is on hold. She is being followed by cardiology. 4. Right-sided hydronephrosis. 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 A nuclear renal scan with Lasix is being ordered to assess the urine flow.
[2019-04-16 12:00] VITALS: BP 142/67
[2019-04-16] MEDS ORDERED: ONDANSETRON 4MG/2ML VIAL (J2405) IV PRN (13:00)
[2019-04-16] MEDS ORDERED: MAALOX 30 ML SUSP *UDC PO PRN (13:00)
[2019-04-16] MEDS: PANTOPRAZOLE 40MG INJ (PROTONIX) (C9113) IV SCH (13:16)
--- NOTE | 2019-04-16 14:36 | IPNPDOC ---
Subjective Date Seen The patient was seen on 04/16/19. Subjective Chief Complaint/HPI Pateint feels well today. No fever or chills, no chest pain or sob , no abdominal pain nausea or vomiting or diarrhea. Objective Physical Examination General Exam: Positive: Alert, Cooperative, No Acute Distress Eye Exam: Positive: PERRLA, Conjunctiva & lids normal, EOMI; Negative: Sclera icteric ENT Exam: Positive: Atraumatic, Mucous membr. 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 Acute Systolic congestive heart failure (CHF) with reduced ejection fraction of 35%, moderate mitral regurgitation (MR), moderate tricuspid regurgitation (TR), severe pulmonary hypertension pulmonary artery (PA) pressure is 60 mmHg, status post Lasix diuresis with acute kidney injury. Patient is currently on hydralazine and isosorbide due to renal failure, unable to use angiotensin-converting enzyme (FLYNN) inhibitors or angiotensin-receptor marcelino (ARB) Paroxysmal Atrial fibrillation with rapid ventricular response (RVR), resolved. on amiodarone 200 four times a day and apixaban 5 mg twice a day and zabeta. 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 right is due to obstruction. Left reduction could be due to obstruction or renovascular disease BRUCE probably due to contrast nephropathy + CHF and Afib + diuresis+ severe renal artery stenosis on the left. Her kidney function deteriorated over the last 1 week. She has severe calcification and stenosis of her abdominal aorta and renal artery angioplasty could not be attempted. Left lower lobe pulmonary nodule. Outpatient followup with CT every three months. Plan/VTE VTE Prophylaxis Ordered?: Yes VS, I&O, 24H, Fishbone Vital Signs/I&O Vital Signs Date Time Temp Pulse Resp B/P (MAP) Pulse Ox O2 Delivery O2 Flow Rate FiO2 04/16/19 12:05 142/67 04/16/19 12:00 97.6 52 18 97 04/12/19 02:00 2.0 I&O- Last 24 Hours up to 6 AM 04/16/19 05:59 Intake Total 120 ml Output Total 700 ml Balance -580 ml Laboratory Data 24H LABS Laboratory Tests 2 04/16/19 04:34: Blood Urea Nitrogen 38H, Creatinine 1.86H, Sodium Level 130L, Potassium Level 3.7, Chloride Level 93L, Carbon Dioxide Level 31, Anion Gap 6L, Glomerular Filtration Rate 27.7L, Calcium Level 8.8, Phosphorus Level 3.2, Albumin 2.9L CBC/BMP Laboratory Tests 04/16/19 04:34 Anion Gap 6 L JOHN GILBERT MD Apr 16, 2019 14:36
[2019-04-16 16:00] VITALS: BP 143/67
--- NOTE | 2019-04-16 18:18 | IPN ---
DATE: 04/16/2019 Mrs. Denney is seen this morning on her bedside. She is feeling well and denies any dyspnea, chest pain, nausea or vomiting. She underwent nuclear renal scan yesterday which showed delayed excretion from her right kidney. Both kidneys have about 50% function. She does have heavy calcification in her aorta and renal arteries but left renal blood flow was reasonable. Bilaterally, renal function is severely impaired on the right side due to chronic obstruction and on the left due to renal artery stenosis. PHYSICAL EXAMINATION: Temperature 98 degrees Fahrenheit, heart rate 56 per minute and respiratory rate 18 per minute. Blood pressure 146/65 mmHg and oxygen saturation 96% on room air. Head is atraumatic. Neck is supple and without jugular venous distention (JVD) or thyroid enlargement. Heart sounds regular and bradycardic. Lungs are clear to auscultation. Abdomen is soft and nontender. Bowel sounds normal. Extremities are without any cyanosis or clubbing. Neurologically, she is awake, alert and oriented times three. LABORATORY DATA: Today's chemistry showed sodium level 130, potassium 3.7, CO2 31, BUN 38 and creatinine 1.86. Calcium 8.8 and phosphorus 3.2. PROBLEMS: 1. Acute kidney injury superimposed on chronic kidney disease. No significant change in kidney function over last couple of days. I anticipate gradual improvement in her kidney function over the next few days. Both kidneys are significantly diminished in function but they are equally impaired. She has a chronic ureteropelvic junction (UPJ) obstruction on right side and on the left side, she has renal artery stenosis which could not be treated because of severe calcification in her aorta and renal arteries. 2. Hyponatremia. Her sodium level did get worse compared to yesterday. She did receive Lasix with her nuclear renal scan which could have been the cause of her hyponatremia. We will recheck her electrolytes tomorrow morning. She is not on any maintenance diuretic at present. 3. Congestive heart failure. Most likely, this was related to new-onset atrial fibrillation and has improved and well-compensated. Currently, she is off diuretics. 4. Atrial fibrillation. Ventricular rate is very well-controlled and she is being followed by cardiology. She remains on amiodarone.
--- NOTE | 2019-04-16 19:56 | IPN ---
DATE: 04/16/2019 CARDIOLOGY PROGRESS NOTE SUBJECTIVE: The patient has been up walking in the halls without chest discomfort, shortness of breath or lightheadedness. Remains free of any awareness of her heart action. OBJECTIVE: Pleasant, bright, elderly lady of medium body laying comfortably. Heart rate 58 bpm and regular, blood pressure 142/64 sitting, respiratory rate 16, oxygen saturation 97% on room air. Afebrile. Weight 137 pounds. No pallor or icterus. No central cyanosis. Trachea midline. Neck veins did not appear to be elevated at this time. Normal symmetrical chest expansion with good air entry over both lung patel. Continues to have few fine end inspiratory crepitations suspected to be due to pulmonary fibrosis. No dependent edema. MANAGER DIABETES: This has shown sinus rhythm / sinus bradycardia without significant ectopic activity. EKG today shows again sinus rhythm with LVH and repolarization abnormalities. LABORATORY DATA: Serum sodium has dropped to 130. Other electrolytes were normal. BUN 38 today, creatinine a little bit higher than yesterday at 1.86 following diuretic therapy during her renal scan, fasting glucose 97, albumin 2.9. IMPRESSION / PLAN: 1. Paroxysmal atrial fibrillation: Has remained in a sinus mechanism on her amiodarone therapy. In light of her soft heart rate, I have discontinued her bisoprolol and have started low-dose carvedilol for rate control but also for hypertension. Her amiodarone dosage has been decreased to 200 mg twice a day and she remains on Eliquis 5 mg twice a day. We have discussed the possibility that she may require permanent pacemaker implantation should her heart rate continue to drop on amiodarone. She understands the crucial importance of antiarrhythmic measures to prevent rapid ventricular response to her atrial fibrillation as she had at the time of her admission that led to her heart failure. 2. Abnormal EKG: As mentioned remains free of chest discomfort. Bisoprolol has been switched to carvedilol as explained above. Continues on isosorbide dinitrate, atorvastatin and Eliquis. 3. Heart failure (systolic and diastolic / acute on chronic): No current symptoms or signs of congestion. As mentioned, auscultatory findings more in keeping with pulmonary fibrosis as suggested by her chest x-ray. At this point we are hoping that rhythm and rate control will prevent further decompensation. Somewhat reluctant to introduce diuretic therapy in light of her mild hyponatremia, metabolic alkalosis and ongoing renal insufficiency. I am not convinced it will be necessary. 4. Hypertensive heart disease (benign with heart failure): Continues to have mild systolic hypertension. Renal scan pre and post Lasix therapy showed findings of advanced obstructive uropathy involving the right kidney with moderate hydronephrosis with bilateral severely impaired excretory function. Our plan at this point is to continue with modest salt intake restriction, regular exercise, isosorbide dinitrate 30 mg three times a day, hydralazine 50 mg three times a day and now with carvedilol 3.125 mg twice a day. 5. 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 Huynh management would be optimal blood pressure control. I I agree with the tentative plan for her discharge home tomorrow. We will arrange for a tentative office followup appointment with EKG in 1-2 weeks time. MIRANDA
[2019-04-16 20:00] VITALS: BP 152/65
[2019-04-16] MEDS: MULTIVITAMINS/MINERALS THERAP 1 TAB PO SCH (20:33)
[2019-04-16] MEDS: VITAMIN D 1,000 INTERNATIONAL UNITS TABLET PO SCH (20:33)
[2019-04-16] MEDS: ATORVASTATIN 20 MG TAB PO SCH (20:34)
[2019-04-16 23:59] VITALS: BP 134/63
[2019-04-17 04:00] VITALS: BP 146/66
[2019-04-17 05:30] LABS: BASO % 0.6 % (0.0-1.0); EOS # 0.3 10^3/uL (0.0-0.50); EOS % 5.1 % (0.0-3.0); HEMATOCRIT 33.8 % (36.0-47.0); HEMOGLOBIN 11.3 g/dl (12.0-15.5); LYMPH # 0.9 10^3/uL (1.5-4.5); LYMPH % 14.2 % (24.0-44.0); MEAN CORPUSCULAR HEMOGLOBIN 31.5 pg (27.0-33.0); MEAN CORPUSCULAR HGB CONC 33.4 g/dl (32.0-36.5); MEAN CORPUSCULAR VOLUME 94.2 fl (80.0-96.0); MONO # 0.9 10^3/uL (0.0-0.8); MONO % 13.9 % (0.0-5.0); NEUTROPHILS # 4.3 10^3/uL (1.8-7.7); NEUTROPHILS % 65.7 % (36.0-66.0); PLATELET COUNT, AUTOMATED 264 10^3/uL (150-450); RED BLOOD COUNT 3.59 10^6/uL (4.00-5.40); WHITE BLOOD COUNT 6.5 10^3/uL (4.0-10.0)
[2019-04-17] MEDS: SLF 3 ML SYR IV SCH ×3 (05:44→21:24)
[2019-04-17 05:54] LABS: CALCIUM LEVEL 8.7 MG/DL (8.8-10.2); CREATININE FOR GFR 2.14 MG/DL (0.55-1.30); GLOMERULAR FILTRATION RATE 23.5 (>32); POTASSIUM SERUM 3.8 MEQ/L (3.5-5.1)
[2019-04-17] MEDS: **hydrALAZINE** 50 MG TAB PO SCH ×3 (06:32→17:28)
[2019-04-17] MEDS: ISOSORBIDE DIN. (ISORDIL) 30 MG TAB PO SCH ×3 (06:32→17:29)
[2019-04-17 08:00] VITALS: BP 149/66
[2019-04-17] MEDS: APIXABAN 5 MG TAB (ELIQUIS) PO SCH ×2 (09:16→21:23)
[2019-04-17] MEDS: AMIODARONE 200 MG TAB (PACERONE) PO SCH ×2 (09:16→21:24)
[2019-04-17] MEDS: CARVedilol 3.125 MG TAB PO SCH ×2 (09:17→21:00)
[2019-04-17] MEDS ORDERED: SODIUM CHLORIDE 0.9% 1000ML IV ONE (10:45)
--- NOTE | 2019-04-17 11:29 | IPNPDOC ---
Subjective Date Seen The patient was seen on 04/17/19. Subjective Chief Complaint/HPI Patient complains of dark colored urine from yesterday, denies any dysuria had a UA on 04/15 which showed 53 wbcs and 3 rbcs. N symptoms so presumed to be asymtomatic bacteruria did not get any antibiotics. No fever or chills, no chest pain or SOb, remains in sinus bradycardia on telemetry. Objective Physical Examination General Exam: Positive: Alert, Cooperative, No Acute Distress Eye Exam: Positive: PERRLA, Conjunctiva & lids normal, EOMI; Negative: Sclera icteric ENT Exam: Positive: Atraumatic, Mucous membr. 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 Acute Systolic congestive heart failure (CHF) with reduced ejection fraction of 35%, moderate mitral regurgitation (MR), moderate tricuspid regurgitation (TR), s evere pulmonary hypertension pulmonary artery (PA) pressure is 60 mmHg, status post Lasix diuresis with acute kidney injury. Patient is currently on hydralazine and isosorbide due to renal failure, unable to use angiotensin-converting enzyme (FLYNN) inhibitors or angiotensin-receptor marcelino (ARB) Paroxysmal Atrial fibrillation with rapid ventricular response (RVR), resolved. on amiodarone 200 bid, coreg eliquis Acute renal failure on CKD stage 3 worse today, with dark urine, UA ordered. 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 Diuretic renal scan shows equal function in both kidneys which are both severely reduced. right is due to obstruction. Left reduction could be due to obstruction or renovascular disease BRUCE probably due to contrast nephropathy + CHF and Afib + diuresis+ severe renal artery stenosis on the left. Her kidney function deteriorated over the last 1 week. She has severe calcification and stenosis of her abdominal aorta and renal artery angioplasty could not be attempted. Left lower lobe pulmonary nodule. Outpatient followup with CT every three months. Plan/VTE VTE Prophylaxis Ordered?: Yes VS, I&O, 24H, Fishbone Vital Signs/I&O Vital Signs Date Time Temp Pulse Resp B/P (MAP) Pulse Ox O2 Delivery O2 Flow Rate FiO2 04/17/19 09:17 53 149/66 04/17/19 08:00 97.1 20 96 04/12/19 02:00 2.0 I&O- Last 24 Hours up to 6 AM 04/17/19 06:00 Intake Total 0 ml Output Total 550 ml Balance -550 ml Laboratory Data 24H LABS Laboratory Tests 2 04/17/19 05:13: Immature Granulocyte % (Auto) 0.5, White Blood Count 6.5, Red Blood Count 3.59L, Hemoglobin 11.3L, Hematocrit 33.8L, Mean Corpuscular Volume 94.2, Mean Corpuscular Hemoglobin 31.5, Mean Corpuscular Hemoglobin Concent 33.4, Red Cell Distribution Width 14.8H, Platelet Count 264, Neutrophils (%) (Auto) 65.7, Lymphocytes (%) (Auto) 14.2L, Monocytes (%) (Auto) 13.9H, Eosinophils (%) (Auto) 5.1H, Basophils (%) (Auto) 0.6, Neutrophils # (Auto) 4.3, Lymphocytes # (Auto) 0.9L, Monocytes # (Auto) 0.9H, Eosinophils # (Auto) 0.3, Basophils # (Auto) 0.0, Nucleated Red Blood Cells % (auto) 0.0, Anion Gap 7L, Glomerular Filtration Rate 23.5L, Blood Urea Nitrogen 41H, Creatinine 2.14H, Sodium Level 131L, Potassium Level 3.8, Chloride Level 94L, Carbon Dioxide Level 30, Calcium Level 8.7L CBC/BMP Laboratory Tests 04/17/19 05:13 Red Blood Count 3.59 L, Mean Corpuscular Volume 94.2, Mean Corpuscular Hemoglobin 31.5, Mean Corpuscular Hemoglobin Concent 33.4, Red Cell Distribution Width 14.8 H, Neutrophils (%) (Auto) 65.7, Lymphocytes (%) (Auto) 14.2 L, Monocytes (%) (Auto) 13.9 H, Eosinophils (%) (Auto) 5.1 H, Basophils (%) (Auto) 0.6, Neutrophils # (Auto) 4.3, Lymphocytes # (Auto) 0.9 L, Monocytes # (Auto) 0 .9 H, Eosinophils # (Auto) 0.3, Basophils # (Auto) 0.0, Calcium Level 8.7 L JOHN GILBERT MD Apr 17, 2019 11:29
[2019-04-17 12:00] VITALS: BP 155/68
[2019-04-17] MEDS: PANTOPRAZOLE 40MG INJ (PROTONIX) (C9113) IV SCH (13:54)
[2019-04-17 15:26] LABS: APPEARANCE, URINE CLOUDY (CLEAR); BACTERIA, URINE AUTO 1+ (NEGATIVE); BILIRUBIN, URINE AUTO NEGATIVE (NEGATIVE); BLOOD, URINE BLOOD 3+ (NEGATIVE); COLOR, URINE RED (YELLOW); GLUCOSE, URINE (UA) AUTO NEGATIVE (NEGATIVE); KETONE, URINE AUTO NEGATIVE (NEGATIVE); LEUKOCYTE ESTERASE, URINE AUTO NEGATIVE (NEGATIVE); MUCUS, URINE SMALL (NEGATIVE); NITRITE, URINE AUTO NEGATIVE (NEGATIVE); PROTEIN, URINE AUTO 2+ mg/dL (NEGATIVE); RBC, URINE AUTO TNTC /HPF (0-3); SPECIFIC GRAVITY URINE AUTO 1.015 (1.002-1.035); SQUAMOUS EPITHELIAL CELL UR AU 2 /HPF (0-6); UROBILINOGEN, URINE AUTO 0.2 mg/dL (0.0-2.0); WBC, URINE AUTO TNTC /HPF (0-3)
[2019-04-17 20:00] VITALS: BP 153/65
[2019-04-17] MEDS: VITAMIN D 1,000 INTERNATIONAL UNITS TABLET PO SCH (21:23)
[2019-04-17] MEDS: MULTIVITAMINS/MINERALS THERAP 1 TAB PO SCH (21:23)
[2019-04-17] MEDS: ATORVASTATIN 20 MG TAB PO SCH (21:24)
[2019-04-18] MEDS: SLF 3 ML SYR IV SCH ×2 (05:02→14:29)
[2019-04-18 05:30] VITALS: BP 157/67
[2019-04-18] MEDS: **hydrALAZINE** 50 MG TAB PO SCH ×2 (06:47→12:08)
[2019-04-18] MEDS: ISOSORBIDE DIN. (ISORDIL) 30 MG TAB PO SCH ×2 (06:48→12:07)
--- NOTE | 2019-04-18 07:07 | IPN ---
CARDIOLOGY PROGRESS NOTE DATE OF SERVICE: 04/17/2019 SUBJECTIVE: The patient has been up walking today without chest discomfort, shortness of breath or dizziness. Has noticed that her urine is now brown colored. Remains free of any headache on her nitrate therapy. OBJECTIVE: Pleasant bright elderly lady who ambulated the room without problems. Current heart rate 56 BPM and regular blood, pressure 144/48 supine and 138/45 sitting with legs dependent, respiratory rate 16 per minute with O2 saturation 96% on room air. She is afebrile. Her weight has remained stable. Neck veins did not appear to be elevated. Continues to have end inspiratory fine crepitations over both lower lobes in keeping with suspected pulmonary fibrosis. Has no dependent edema. INSPECTOR FINISHING: This has shown sinus bradycardia for the most part without further evidence of atrial tachyarrhythmia. LABORATORY DATA: Her hemoglobin today has drifted to 11.3 down from her admission of 13-14 grams per deciliter. Her white blood cell count remains normal. Platelet count remains normal. Serum sodium today has climbed from 130 yesterday to 131. Other electrolytes have been normal. Calcium 8.7, but albumin 2.9. BUN has slightly increased from 38 yesterday to 41, creatinine has slightly increased from 1.86 to 2.14 today. Fasting glucose was normal at 93. Urinalysis this afternoon shows evidence of obvious hematuria on her anticoagulant therapy. IMPRESSION/PLAN: 1. Paroxysmal atrial fibrillation: Has remained in sinus rhythm on amiodarone antiarrhythmic therapy. Appears to be tolerating this medication without adverse effect. Her dosage was decreased yesterday in light of her sinus bradycardia. Frustratingly, on her Eliquis she appears to have developed hematuria. Her Eliquis has been at least temporarily withheld. She may require further urological evaluation. 2. Abnormal EKG: Ambulating without chest discomfort. We had switched her beta marcelino from bisoprolol to carvedilol, but in light of her bradycardia our plan is to discontinue these agents altogether. Will continue on isosorbide dinitrate and atorvastatin. Eliquis is also being placed on hold because of her hematuria. 3. Heart failure (systolic and diastolic/acute on chronic): Currently compensated. Her rising BUN and creatinine is not believed to be due to dehydration. Her weight has remained stable and she does not have an orthostatic drop in blood pressure. We have been withholding diuretic therapy for days at this time. She was given 500 mL of saline earlier today. 4. Hypertensive heart disease (benign with heart failure): Has no symptoms or signs of congestion. Current blood pressure would be considered adequately controlled with combination isosorbide dinitrate and hydralazine. Carvedilol discontinued as mentioned above. 5. 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 No need for subacute bacterial endocarditis (SBE) antibiotic prophylaxis. Optimal blood pressure would be considered pierce management. I suspect in light of her climbing BUN and creatinine and hematuria, she is unlikely to be discharged home tomorrow. We will continue to follow her with you.
[2019-04-18 07:58] LABS: CALCIUM LEVEL 8.2 MG/DL (8.8-10.2); CREATININE FOR GFR 1.87 MG/DL (0.55-1.30); GLOMERULAR FILTRATION RATE 27.4 (>32); POTASSIUM SERUM 3.6 MEQ/L (3.5-5.1)
[2019-04-18 08:00] VITALS: BP 150/48
[2019-04-18] MEDS ORDERED: POTASSIUM CHLORIDE 10 MEQ SR TABLET PO ONE (08:15)
[2019-04-18 08:18] LABS: BASO % 0.6 % (0.0-1.0); EOS # 0.4 10^3/uL (0.0-0.50); EOS % 6.6 % (0.0-3.0); HEMATOCRIT 32.8 % (36.0-47.0); LYMPH # 0.7 10^3/uL (1.5-4.5); LYMPH % 11.4 % (24.0-44.0); MEAN CORPUSCULAR HEMOGLOBIN 31.6 pg (27.0-33.0); MEAN CORPUSCULAR HGB CONC 33.5 g/dl (32.0-36.5); MEAN CORPUSCULAR VOLUME 94.3 fl (80.0-96.0); MONO # 0.9 10^3/uL (0.0-0.8); MONO % 13.9 % (0.0-5.0); NEUTROPHILS # 4.3 10^3/uL (1.8-7.7); PLATELET COUNT, AUTOMATED 252 10^3/uL (150-450); RED BLOOD COUNT 3.48 10^6/uL (4.00-5.40); WHITE BLOOD COUNT 6.4 10^3/uL (4.0-10.0)
[2019-04-18] MEDS: AMIODARONE 200 MG TAB (PACERONE) PO SCH (08:44)
[2019-04-18] MEDS ORDERED: ISOS30TAB PO (10:15)
[2019-04-18] MEDS ORDERED: ATOR1TAB21 PO (10:15)
[2019-04-18] MEDS ORDERED: AMIO200T PO (10:15)
[2019-04-18] MEDS ORDERED: HYDR50TA PO (10:15)
[2019-04-18 12:00] VITALS: BP 144/58
[2019-04-18 12:08] VITALS: BP 144/58
--- NOTE | 2019-04-18 12:09 | IPN ---
CARDIOLOGY PROGRESS NOTE DATE OF SERVICE: 04/18/2019 SUBJECTIVE: The patient claims to have been ambulating without problems. In particular, denies chest discomfort, shortness of breath, dizziness or awareness of her heart action. Her gross hematuria appears to have decreased. Tolerating her medications without adverse effect. OBJECTIVE: Bright, pleasant, elderly, well tanned woman of medium body build laying comfortably. Heart rate 58 BPM, blood pressure 150/60, respiratory rate 18, O2 saturation 95% on room air. Afebrile. Her weight has been stable at 139 pounds. No apparent pallor or cyanosis. Breathing comfortably. Has no current dependent edema. EDUCATION MANAGERS: This has shown consistent sinus rhythm/sinus bradycardia without significant pauses or recurrent atrial tachyarrhythmia. BLOOD WORK Hemoglobin 11, white blood cell count normal, platelet count normal. Electrolytes today showed a serum sodium of 131 up from 130 several days ago, potassium 3.6, BUN slightly improved from yesterday at 39, creatinine improved from yesterday at 1.87, fasting glucose 88. IMPRESSION/PLAN: 1. Paroxysmal atrial fibrillation: Appears to be doing fairly well with amiodarone 200 mg twice a day alone. Her hematuria is improving off Eliquis. At this point, I have discussed the use of "the Watchman" as an alternative to chronic oral anticoagulation and have made tentative arrangements for her to meet with Dr. Rafael Quigley, transit operator at [facility] to discuss this further. As previously mentioned, I suspect she will require further urological evaluation for her hematuria. 2. Abnormal EKG: Continues to ambulate without chest discomfort. No followup EKG was obtained today. Will remain on protective isosorbide dinitrate and atorvastatin. Unable to take even low-dose beta blockade because of her sinus bradycardia and Eliquis because of her hematuria. 3. Heart failure (systolic and diastolic/acute on chronic): As previously mentioned, believed to be primarily related to her tachycardia and we are cautiously optimistic this will improve with time in sustained sinus rhythm. Remains on a modest salt intake restriction. We are hoping diuretic therapy will not prove necessary. Dr. Thorpe, nephrology, will continue to monitor her advanced renal insufficiency. 4. Hypertensive heart disease (benign with heart failure): No current symptoms or signs of congestion. Inspiratory crepitations believed to be a reflection of pulmonary fibrosis. Current systolic blood pressure remains somewhat high, but likely acceptable given her degree of renal vascular disease. Remains on isosorbide dinitrate and hydralazine alone. Hoping to avoid FLYNN inhibitors, angiotensin receptor blockers and diuretics if possible. 5. 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 At this point, I believe it would by okay for her to be discharged home - from the cardiac standpoint. She will be on amiodarone 2 mg twice a day, hydralazine 50 mg three times a day, isosorbide dinitrate 30 mg three times a day, atorvastatin 40 mg daily and baby aspirin 81 mg daily. We will plan on seeing her in follow up with an EKG in approximately one weeks' time.
[2019-04-18] MEDS ORDERED: ATOR40TA75 PO (13:44)
[2019-04-18] MEDS ORDERED: ASPI81TA85 PO (14:06)
[2019-04-18] MEDS: PANTOPRAZOLE 40MG INJ (PROTONIX) (C9113) IV SCH (14:29)
--- NOTE | 2019-04-18 15:10 | DS.PDOC ---
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 Left lower lung nodule. COMPLICATIONS/CHIEF COMPLAINT: Atrial Fibrillation With Rapid Ventricular Respons. 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 Acute Systolic congestive heart failure (CHF) with reduced ejection fraction of 35%, moderate mitral regurgitation (MR), moderate tricuspid regurgitation (TR), severe pulmonary hypertension pulmonary artery (PA) pressure is 60 mmHg, status post Lasix diuresis. Patient is currently on hydralazine and isosorbide due to renal failure, unable to use angiotensin-converting enzyme (FLYNN) inhibitors or angiot ensin-receptor marcelino (ARB) Paroxysmal Atrial fibrillation with rapid ventricular response (RVR), resolved. on amiodarone 200 bid, statin and aspirin. 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 Diuretic renal scan shows equal function in both kidneys which are both severely reduced. right is due to obstruction. Left reduction could be due to obstruction or renovascular disease BRUCE probably due to contrast nephropathy + CHF and Afib + diuresis+ severe renal artery stenosis on the left. Her kidney function deteriorated over the last 1 week. She has severe calcification and stenosis of her abdominal aorta and renal artery angioplasty could not be attempted. Hematuria after starting eliquis no stopped an only give ASA referred to urology for evaluation of hematuria. No infection Left lower lobe pulmonary nodule. Outpatient followup with CT every three DISCHARGE MEDICATIONS: Please see below. ALLERGIES: Please see below. PHYSICAL EXAMINATION ON DISCHARGE: VITAL SIGNS: Please see below. General Exam: Positive: Alert, Cooperative, No Acute Distress Eye Exam: Positive: PERRLA, Conjunctiva & lids normal, EOMI; Negative: Sclera icteric ENT Exam: Positive: Atraumatic, Mucous membrane moist/pink, Pharynx Normal Neck Exam: Positive: Supple; Negative: JVD, thyromegaly Chest Exam: Positive: Clear to auscultation, Normal air movement Heart Exam: Positive: Rate Normal, Regular Rhythm, Normal S1, Normal S2, Murmurs (systolic); Negative: Rubs Abdomen Exam: Positive: Normal bowel sounds, Soft; Negative: Tenderness, Hepatosplenomegaly Extremity Exam: Positive: Normal pulses; Negative: Clubbing, Cyanosis, Edema LABORATORY DATA: Please see below. ACTIVITY: [As tolerated]. DIET: As tolerated DISCHARGE PLAN: Home DISPOSITION: Home DISCHARGE INSTRUCTIONS: Follow up with Dr Miller in 1 week for EKG Follow up Dr Guzman in 1 week referral to urology clinic for evaluation of hematuria referral to new PMD in 1 week ITEMS TO FOLLOWUP ON ON OUTPATIENT: CT of Chest in 3 months for evaluation of left lower lobe nodule. DISCHARGE CONDITION: [Stable]. TIME SPENT ON DISCHARGE: 35 minutes. Vital Signs/I&Os Vital Signs Date Time Temp Pulse Resp B/P (MAP) Pulse Ox O2 Delivery O2 Flow Rate FiO2 04/18/19 12:08 144/58 04/18/19 12:00 97.4 54 18 98 04/12/19 02:00 2.0 I&O- Last 24 Hours up to 6 AM 04/18/19 06:00 Intake Total 845 ml Output Total 925 ml Balance -80 ml Laboratory Data Labs 24H Laboratory Tests 2 04/18/19 05:17: Immature Granulocyte % (Auto) 0.5, White Blood Count 6.4, Red Blood Count 3.48L, Hemoglobin 11.0L, Hematocrit 32.8L, Mean Corpuscular Volume 94.3, Mean Corpuscular Hemoglobin 31.6, Mean Corpuscular Hemoglobin Concent 33.5, Red Cell Distribution Width 14.9H, Platelet Count 252, Neutrophils (%) (Auto) 67.0H, Lymphocytes (%) (Auto) 11.4L, Monocytes (%) (Auto) 13.9H, Eosinophils (%) (Auto) 6.6H, Basophils (%) (Auto) 0.6, Neutrophils # (Auto) 4.3, Lymphocytes # (Auto) 0.7L, Monocytes # (Auto) 0.9H, Eosinophils # (Auto) 0.4, Basophils # (Auto) 0.0, Nucleated Red Blood Cells % (auto) 0.0, Anion Gap 8, Glomerular Filtration Rate 27.4L, Blood Urea Nitrogen 39H, Creatinine 1.87H, Sodium Level 131L, Potassium Level 3.6, Chloride Level 94L, Carbon Dioxide Level 29, Calcium Level 8.2L CBC/BMP Laboratory Tests 04/18/19 05:17 Red Blood Count 3.48 L, Mean Corpuscular Volume 94.3, Mean Corpuscular Hemoglobin 31.6, Mean Corpuscular Hemoglobin Concent 33.5, Red Cell Distribution Width 14.9 H, Neutrophils (%) (Auto) 67.0 H, Lymphocytes (%) (Auto) 11.4 L, Monocytes (%) (Auto) 13.9 H, Eosinophils (%) (Auto) 6.6 H, Basophils (%) (Auto) 0.6, Neutrophils # (Auto) 4.3, Lymphocytes # (Auto) 0.7 L, Monocytes # (Auto) 0.9 H, Eosinophils # (Auto) 0.4, Basophils # (Auto) 0.0, Calcium Level 8.2 L Microbiology Microbiology 04/17/19 Urine Culture - Final, Complete Discharge Medications Scheduled Amiodarone HCl (Amiodarone HCl) 200 Mg Tablet, 200 MG PO BID Aspirin (Aspir 81) 81 Mg Tablet.dr, 1 TAB PO DAILY for pain Atorvastatin Calcium (Atorvastatin Calcium) 40 Mg Tablet, 40 MG PO QHS Biotin (Biotin) Unknown Strength Capsule, 1 CAP PO QHS, (Reported) Cholecalciferol (Vitamin D3) (Vitamin D3) 1,000 Unit Tablet, 1,000 UNIT PO QHS, (Reported) Glucosa Singleton 2Kcl/Chondroitin Singleton (Glucosamine & Chondroitin Cap) 1 Each Capsule, 1 EACH PO QHS, (Reported) Hydralazine HCl (Hydralazine HCl) 50 Mg Tablet, 50 MG PO TID@0700,1200,1700 Isosorbide Dinitrate (Isosorbide Dinitrate) 30 Mg Tablet, 30 MG PO TID@0700,1200,1700 Lutein (Lutein) Unknown Strength Capsule, 1 CAP PO QHS, (Reported) Multivitamins (Thera M Plus Tablet) 1 Each Tablet, 1 TAB PO QHS, (Reported) [place]-3 Fatty Acids/Fish Oil (Fish Oil 1,000 mg Capsule) 1 Each Capsule, 1,000 MG PO QHS, (Reported) Ubidecarenone (Co Q-10) Unknown Strength Capsule, 1 CAP PO QHS, (Reported) Allergies Coded Allergies: No Known Allergies (Unverified , 04/08/19) JOHN GILBERT MD Apr 18, 2019 15:10
--- NOTE | 2019-04-18 18:21 | IPN ---
DATE: 04/17/2019 Mrs. Denney is seen this morning on her bedside. She reports very dark-colored urine today but denies any dysuria or flank pain. She denies any dyspnea, chest pain, nausea, or vomiting. She had a nuclear renal scan done on Monday, which did show ureteropelvic junction (UPJ) obstruction on the right side and probably mild renal artery stenosis on the left side. Both kidneys are equally impaired. PHYSICAL EXAMINATION: Temperature is 97.1 degrees Fahrenheit, heart rate 50 per minute, respiratory rate 18 per minute, blood pressure 155/68 mm of mercury, and oxygen saturation 96%. Her head is atraumatic. Neck is supple, and jugular venous distention (JVD) is about 4 cm above sternal angle. Heart sounds are regular in rhythm and bradycardic. Lungs sound clear to auscultation. Abdomen is soft and nontender, and bowel sounds are normal. Extremities have no cyanosis or clubbing. She does not have any peripheral edema. Neurologically, she is awake, alert, and oriented times three. Today's labs show WBC count 6.5, hemoglobin 11.3, hematocrit 33.8. Sodium 131, potassium 3.8, CO2 of 30, BUN 41, and creatinine 2.14. Glucose 93 and calcium 8.7. PROBLEMS: 1. Acute renal failure superimposed on chronic kidney disease. Kidney function worsened unexpectedly today. Her baseline creatinine was about 1.0 on admission. She had she did have contrast early only for her CT angiogram on April 08 and a small amount of contrast for a renal angiogram, I believe on the . She got nuclear renal scan done with Lasix on the . At present, her kidney function worsening is unexpected. Her volume status seems reasonably well compensated, and I do not feel that she is significantly over-diuresed. We will give her a trial of IV fluid of 500 normal saline, as she received a dose of Lasix yesterday. Her obstruction on the right side is chronic due to a UPJ, and urology has advised for no intervention. Her left renal artery stenosis is not fixable due to heavy calcification in the aorta and region of renal artery. 2. Congestive heart failure and atrial fibrillation. She did convert to sinus rhythm. Her congestive heart failure is compensated at present. She is being followed by cardiology. Her amiodarone dose is being adjusted due to bradycardia. 3. Hyponatremia. Her sodium level is unchanged over last 24 hours. She did have a significant drop in her sodium level since April 13. At present, we will continue to monitor. We will give her 500 mL of normal saline today and see how she does. 4. Discoloration of urine, probably related to nuclear dye versus hematuria. A urinalysis is being ordered. DISPOSITION: Yesterday we felt that the patient would be ready for discharge, as her kidney function was expected to improve; however, her kidney function did get worse today. She understands that she is not ready for discharge today. We will see how her kidney function is tomorrow and then make a decision.
--- NOTE | 2019-04-18 21:19 | IPN ---
DATE: 04/18/2019 Mrs. Denney seen this morning on her bedside. She reports gross hematuria, but denies any other complaints. She has no fever or chills. She has no dyspnea or chest pain. PHYSICAL EXAMINATION: Temperature 97.6 degrees Fahrenheit, heart rate 58 per minute and respiratory rate 18 per minute. Blood pressure 150/48 mmHg and oxygen saturation 95% on room air. Her head is atraumatic. Neck is supple and JVD about 3 cm above sternal angle. Heart sounds are regular and lungs sound clear to auscultation. Abdomen is soft and nontender and bowel sounds are normal. Extremities have no cyanosis or clubbing. Neurologically, she is awake, alert and oriented x3. Today's labs show white blood cell (WBC) count 6.4, hemoglobin 11.0 and hematocrit 32.8. Sodium 131, potassium 3.6, CO2 29, BUN 39 and creatinine 1.87. PROBLEMS: 1. Acute kidney injury superimposed on chronic kidney disease. Her kidney function improved compared with yesterday. Overall for last 4 days, there has been no significant trend of her kidney function. A nuclear renal scan did show chronic obstruction in the right kidney due to UPJ obstruction and she has left renal artery stenosis with heavy calcification. We anticipate further improvement in her kidney function over next few days. 2. Gross hematuria. Etiology remains uncertain. Probably from the bladder and I would suggest and make recommendations for cystoscopy as the patient has atrial fibrillation and likely to require anticoagulation. 3. Hypokalemia. The patient will be given one dose of potassium chloride 20 mEq today and currently she is off diuretic. 4. Hyponatremia. No change in the sodium level for last 2 days. She is currently off diuretics and her sodium is likely to improve over next few days. 5. Atrial fibrillation and congestive heart failure, ventricular rate is very well controlled and volume status is well-compensated. She is being followed by cardiology. 6. Disposition from a renal standpoint. The patient can be followed up as an outpatient now and she will see us in our office in one week. I thank you for allowing me to participate in the care of Mrs. Denney. Dictation.
--- NOTE | 2019-05-11 14:54 | REPIR ---
DATE OF PROCEDURE: 04/11/2019 ATTENDING SURGEON: Dr. Forest Weeks MARKETING TECHNOLOGY SPECIALIST: Jolie Tanner and Josias Hwang PREOPERATIVE DIAGNOSES: Shortness of breath, atrial fibrillation with rapid ventricular response, hypertension, chronic renal insufficiency, and bilateral renal artery stenosis. POSTOPERATIVE DIAGNOSES: Shortness of breath, atrial fibrillation with rapid ventricular response, hypertension, chronic renal insufficiency, and bilateral renal artery stenosis. PROCEDURE: Right common femoral arterial cannulation, Mynx closure of the right common femoral artery. INDICATION: The patient is an 83-year-old female who presented with shortness of breath and fluid overload who also has a history of chronic renal insufficiency and an ultrasound showing renal artery stenosis. The patient will undergo attempted renal artery angiogram with possible angioplasty stent and/or atherectomy. ANESTHESIA: Was local with 10 mL of 2% lidocaine mixed of 0.5% Marcaine. COMPLICATIONS: None. DRAINS: None. SPECIMENS: None. IMPLANTS: Right common femoral arteriotomy closure with a 5-Turkmen Mynx closure device. PROCEDURE: The patient was taken to the angiography suite, placed supine on the angiography room table and then prepped and draped in a standard surgical fashion. The right common femoral artery was then cannulated with a micropuncture needle after anesthetizing the overlying skin with 2% lidocaine mixed 0.5% Marcaine. The micropuncture wire was advanced through the micropuncture needle which was upsized to a micropuncture sheath. The Bentson wire was advanced through the micropuncture sheath which was upsized to a 5-Turkmen sheath. The soft Omni catheter was used to attempt cannulation of the renal arteries without success and due to the extensive calcification and occlusive disease in the aorta the determination was made to not further attempt cannulation due to the extreme calcific disease and concerns for embolus and/or injury and dissection. The catheters and wires were removed. The sheath was removed with a 5-Turkmen Mynx closure device with an additional 10 minutes of adjunctive pressure applied for hemostasis. Dressings were then applied. The patient tolerated procedure well. All instruments, sponge and needle counts were correct at the end the case. There were no complications. Dr. Weeks was present for and directed the entire case. The patient was transferred to the holding area and subsequent to the floor in stable condition.
== END 2019-04-18 15:41 | disposition home or self-care (01) | DRG 291 ==
LOC: M ED 14:23 → UNDOADMOB 14:24 → M ED INP 14:24 → OBSVTOIN 20:38 → INTOOBSV 20:38 → M PCU 22:37 → M ED INP 22:37 → OBSVTOIN 04-09 20:48 → M PCU 04-09 20:48
PROVIDERS: ADMIT Internal Medicine; ATTEND Internal Medicine Nephrology
PROC: B40FYZZ Plain Radiography of Right Lower Extremity Arteries using Other Contrast (ICD-10-PCS; principal; 2019-04-11 11:00)
DX: I13.0 Hypertensive heart and chronic kidney disease with heart failure and stage 1 through stage 4 chronic kidney disease, or unspecified chronic kidney disease (principal); I50.43 Acute on chronic combined systolic (congestive) and diastolic (congestive) heart failure; N17.9 Acute kidney failure, unspecified; I48.1 Persistent atrial fibrillation; I16.0 Hypertensive urgency; I70.1 Atherosclerosis of renal artery; I27.20 Pulmonary hypertension, unspecified; E87.6 Hypokalemia; I42.0 Dilated cardiomyopathy; R91.1 Solitary pulmonary nodule; I35.0 Nonrheumatic aortic (valve) stenosis; T50.8X5A Adverse effect of diagnostic agents, initial encounter; N14.1 Nephropathy induced by other drugs, medicaments and biological substances; I34.0 Nonrheumatic mitral (valve) insufficiency; N18.3 Chronic kidney disease, stage 3 (moderate); Z89.421 Acquired absence of other right toe(s); Z85.3 Personal history of malignant neoplasm of breast; Z96.652 Presence of left artificial knee joint; Z79.899 Other long term (current) drug therapy; Z87.891 Personal history of nicotine dependence; Z90.12 Acquired absence of left breast and nipple

== ENCOUNTER 2019-04-25 20:30 | Inpatient (IN) | payer MEDICARE ==
[~2019-04-25] VITALS: Ht 160 cm; Wt 64.5 kg
[~2019-04-25 20:30] MED LIST: AMIO200T PO; ASPI81TA85 PO; ATOR1TAB21 PO; ATOR40TA75 PO; BIOT1CAP2 PO; CO Q10CA PO; D-10TAB3 PO; ELIQ5TAB PO; FISH1000 PO; GLUC500C37 PO; HYDR50TA PO; ISOS30TAB PO; LOPR1TAB6 PO; LUTE2000 PO; VITMTA PO
[2019-04-25] MEDS ORDERED: ACETAMINOPHEN TAB 650MG DOSE (2X325MG) PO ONE (21:15)
[2019-04-25 22:18] LABS: BASO % 0.3 % (0.0-1.0); EOS % 0.1 % (0.0-3.0); HEMATOCRIT 34.2 % (36.0-47.0); HEMOGLOBIN 11.7 g/dl (12.0-15.5); LYMPH % 1.6 % (24.0-44.0); MEAN CORPUSCULAR HEMOGLOBIN 32.3 pg (27.0-33.0); MEAN CORPUSCULAR HGB CONC 34.2 g/dl (32.0-36.5); MEAN CORPUSCULAR VOLUME 94.5 fl (80.0-96.0); MONO # 0.7 10^3/uL (0.0-0.8); MONO % 7.1 % (0.0-5.0); NEUTROPHILS # 9.1 10^3/uL (1.8-7.7); NEUTROPHILS % 89.9 % (36.0-66.0); PLATELET COUNT, AUTOMATED 212 10^3/uL (150-450); RED BLOOD COUNT 3.62 10^6/uL (4.00-5.40); WHITE BLOOD COUNT 10.1 10^3/uL (4.0-10.0)
[2019-04-25 22:35] LABS: LYMPH # 0.2 10^3/uL (1.5-4.5)
[2019-04-25] MEDS ORDERED: HYDR50TA PO (22:46)
[2019-04-25] MEDS ORDERED: AMIO200T PO (22:46)
[2019-04-25] MEDS ORDERED: ISOS30TAB PO (22:46)
[2019-04-25] MEDS ORDERED: ATOR40TA75 PO (22:46)
[2019-04-25 23:00] LABS: ALBUMIN 2.9 GM/DL (3.2-5.2); BILIRUBIN,DIRECT 0.4 MG/DL (0.0-0.2); BILIRUBIN,TOTAL 0.9 MG/DL (0.2-1.0); CALCIUM LEVEL 8.4 MG/DL (8.8-10.2); CK-MB VALUE MASS 2.1 NG/ML (<3.6); CREATININE FOR GFR 1.35 MG/DL (0.55-1.30); MB/CK RELATIVE INDEX 1.91 (< OR =4); POTASSIUM SERUM 4.4 MEQ/L (3.5-5.1); TOTAL PROTEIN 6.9 GM/DL (6.4-8.2); TROPONIN I 0.09 NG/ML (< 0.10)
[2019-04-26] VITALS (20 sets, daily range): BP systolic 142–233; BP diastolic 60–106
[2019-04-26] MEDS ORDERED: **hydrALAZINE** 50 MG TAB PO ONE (01:00)
[2019-04-26] MEDS ORDERED: ISOSORBIDE DIN. (ISORDIL) 30 MG TAB PO ONE (01:00)
[2019-04-26 01:47] LABS: APPEARANCE, URINE CLEAR (CLEAR); BACTERIA, URINE AUTO NEGATIVE (NEGATIVE); BILIRUBIN, URINE AUTO NEGATIVE (NEGATIVE); BLOOD, URINE BLOOD NEGATIVE (NEGATIVE); COLOR, URINE YELLOW (YELLOW); GLUCOSE, URINE (UA) AUTO NEGATIVE (NEGATIVE); KETONE, URINE AUTO TRACE mg/dL (NEGATIVE); LEUKOCYTE ESTERASE, URINE AUTO NEGATIVE (NEGATIVE); MUCUS, URINE SMALL (NEGATIVE); NITRITE, URINE AUTO NEGATIVE (NEGATIVE); PROTEIN, URINE AUTO 1+ mg/dL (NEGATIVE); RBC, URINE AUTO 4 /HPF (0-3); SPECIFIC GRAVITY URINE AUTO 1.017 (1.002-1.035); SQUAMOUS EPITHELIAL CELL UR AU 1 /HPF (0-6); UROBILINOGEN, URINE AUTO 0.2 mg/dL (0.0-2.0); WBC, URINE AUTO 1 /HPF (0-3)
[2019-04-26] MEDS ORDERED: HEPARIN SOD (PORCINE) 5000 UNITS/ML VIAL SC SCH (06:00)
[2019-04-26] MEDS ORDERED: LevoFLOXacin IV 500 MG in IV 1 EA IV ONE (06:30)
[2019-04-26] MEDS ORDERED: VANCOMYCIN HCL 500 MG in D5W MINI-BAG PLUS 100 ML IV SCH (06:30)
[2019-04-26] MEDS: ACETAMINOPHEN TAB 650MG DOSE (2X325MG) PO PRN ×2 (06:32→16:11)
[2019-04-26] MEDS ORDERED: hydrALAZINE INJ 20 MG/ML VIAL IV STA (06:43)
[2019-04-26] MEDS ORDERED: NS 1,000 ML IV SCH (06:45)
--- NOTE | 2019-04-26 06:56 | HPEPDOC ---
[facility] Medical History & Physical Date of Admission Apr 26, 2019 Date of Service: Apr 26, 2019 History and Physical CHIEF COMPLAINT: HISTORY OF PRESENT ILLNESS: [This is an 84 yo female with pmhx of htn who presented to the ed for fever and chills, which started yesterday, without any focal sign of infection. Per they went to her professor of special education the day prior and every thing was ok, but since yesterday she startede having fever and chills and her bp was in the 190s despite taking her meds. Patient denied any symptoms except the fever and chills including pain, headache , change in vision, nausea, vomiting , diarrhea, open wound, chest pain, sob, or dysuria. ] PAST MEDICAL HISTORY: hypertension afib breast cancer s/p double mastectomy an chemo - has been in remission for years PAST SURGICAL HISTORY: 1. She had her right 5th toe removed in December of this year. 2. She had a left total knee replacement. 3. She has a history of bilateral mastectomy. ALLERGIES: No known drug allergies. FAMILY HISTORY: Her father had coronary artery disease. mother of breast ca in her 50s SOCIAL HISTORY: The patient has been for 60 years and lives with her . She has three adult children. 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 No smoking, alcohol, or drugs. She was a prior smoker but quit over 30 years ago. ALLERGIES: Please see below. HOME MEDICATIONS: Please see below. ROS - all 10 point review of system is negative except for whats listed in HPI Physical exam Gen: NAD, healthy appearing , HEENT: normocephalic, atraumatic, no discharge from ears or nose, no oropha ryngeal erythema or exudate, neck is supple, no lymphadenopathy, trachea midline CVS: RRR, normal S1n S2, no murmur, rubs, or gallops, no edema, no jvd Resp: LCTAB, no rhonchi, wheezes or crackles Abd : soft nontender, normal bowel sounds, no rebound tenderness or guarding MSK: no swelling, full range of motion, strength 5/5 Neuro: AOAx3, no confusion, no focal deficit Psych: normal mood and affect, good judgment LABORATORY DATA: See below. IMAGING: [report pending - but based on my read it looks like she might have developing infiltrate on the right middle lobe ] MICROBIOLOGY: Please see below. ASSESSMENT and plan fever and chills , possibly HCAP//CAP started vanc and levaquin for now f/u resp panel f/u ct chest w/o contrast f/u sputum gram stain and cx f/u resp bacterial antigen f/u blood cx tylenol for fever , cooling blanket if tylenol alone doesnt work ivf - ns at 80 cc/hr UA is clean f/u blood cx f/u tsh and free t4 hyponatremia f/u urine sodium and serum and urine osm c/w ivf and monitor repeat sodium in 8 hours htn urgency c/w home meds prn iv hydralazine afib not on anticoagulation per because it caused renal failure for her cardio consult chadvasc score is high, she was on eliquis, maybe consider another AC if patient/ agrees dvt ppx full code Vital Signs Vital Signs Date Time Temp Pulse Resp B/P (MAP) Pulse Ox O2 Delivery O2 Flow Rate FiO2 04/26/19 03:30 98.7 72 18 165/73 (103) 95 04/26/19 02:49 Nasal Cannula 2.0 Laboratory Data Labs 24H Laboratory Tests 2 04/25/19 22:06: Immature Granulocyte % (Auto) 1.0, White Blood Count 10.1H, Red Blood Count 3.62L, Hemoglobin 11.7L, Hematocrit 34.2L, Mean Corpuscular Volume 94.5, Mean Corpuscular Hemoglobin 32.3, Mean Corpuscular Hemoglobin Concent 34.2, Red Cell Distribution Width 14.7H, Platelet Count 212, Neutrophils (%) (Auto) 89.9H, Ly mphocytes (%) (Auto) 1.6L, Monocytes (%) (Auto) 7.1H, Eosinophils (%) (Auto) 0.1, Basophils (%) (Auto) 0.3, Neutrophils # (Auto) 9.1H, Lymphocytes # (Auto) 0.2L, Monocytes # (Auto) 0.7, Eosinophils # (Auto) 0.0, Basophils # (Auto) 0.0, Nucleated Red Blood Cells % (auto) 0.0, Anion Gap 8, Glomerular Filtration Rate 40.0, Lactic Acid Level 1.4, Calcium Level 8.4L, Aspartate Amino Transf (AST/SGOT) 27, Alanine Aminotransferase (ALT/SGPT) 26, Alkaline Phosphatase 100, Total Bilirubin 0.9, Direct Bilirubin 0.4H, Total Creatine Kinase 110, Creatine Kinase MB 2.1, Creatine Kinase MB Relative Index 1.91, Troponin I 0.09, Total Protein 6.9, Albumin 2.9L, Albumin/Globulin Ratio 0.73L CBC/BMP Laboratory Tests 04/25/19 22:06 Red Blood Count 3.62 L, Mean Corpuscular Volume 94.5, Mean Corpuscular Hemoglobin 32.3, Mean Corpuscular Hemoglobin Concent 34.2, Red Cell Distribution Width 14.7 H, Neutrophils (%) (Auto) 89.9 H, Lymphocytes (%) (Auto) 1.6 L, Monocytes (%) (Auto) 7.1 H, Eosinophils (%) (Auto) 0.1, Basophils (%) (Auto) 0.3, Neutrophils # (Auto) 9.1 H, Lymphocytes # (Auto) 0.2 L, Monocytes # (Auto) 0.7, Eosinophils # (Auto) 0.0, Basophils # (Auto) 0.0 Microbiology Microbiology 04/25/19 Blood Culture, Received Pending 04/25/19 Blood Culture, Received Pending 04/25/19 Urine Culture, Received Pending Home Medications Scheduled Amiodarone HCl (Amiodarone HCl) 200 Mg Tablet, 200 MG PO BID Atorvastatin Calcium (Atorvastatin Calcium) 40 Mg Tablet, 40 MG PO QHS Hydralazine HCl (Hydralazine HCl) 50 Mg Tablet, 50 MG PO TID 0700, 1200, 1700 Isosorbide Dinitrate (Isosorbide Dinitrate) 30 Mg Tablet, 30 MG PO TID 0700, 1200, 1700 Allergies Coded Allergies: No Known Allergies (Unverified , 04/08/19) A-FIB/CHADSVASC A-FIB History Current/History of A-Fib/PAF?: Yes Current PO Anticoag Therapy: Yes Age/Risk Factor Scoring CHADSVASC: CHADSVASC Response (Comments) Value Age Risk Factor Age >/= 75 years old 2 Gender Risk Factor Female 1 Hx of CHF Yes 1 Hx of HTN Yes 1 Hx of Stroke/TIA/or VTE No 0 Hx of Diabetes No 0 Hx of Vascular Disease No 0 Total 5 Treatment Treatment ordered: Heparin IV bridge Therapy MARY KERN MD Apr 26, 2019 03:31
[2019-04-26] MEDS: **hydrALAZINE** 50 MG TAB PO SCH ×3 (06:59→16:06)
[2019-04-26] MEDS: ISOSORBIDE DIN. (ISORDIL) 30 MG TAB PO SCH ×3 (06:59→16:06)
--- NOTE | 2019-04-26 07:39 | REP ---
PA and lateral chest: Comparisons are the chest CT dated 04/09/2019 and portable chest 04/14/2019. There is diffuse bilateral interstitial coarsening, unchanged. This could be chronic, acute or combination. There are bilateral pleural effusions, unchanged. There is cardiomegaly, unchanged. The ila, mediastinum, skeletal structures are unchanged. There are surgical clips in the right axilla, unchanged. Impression: Diffuse interstitial coarsening as described. Bilateral pleural effusions. Cardiomegaly. Electronically Signed by Luis Rodriguez MD 04/26/2019 07:31 A
[2019-04-26 07:40] LABS: HEMOGLOBIN 13.1 g/dl (12.0-15.5); MEAN CORPUSCULAR HEMOGLOBIN 32.1 pg (27.0-33.0); MEAN CORPUSCULAR HGB CONC 34.5 g/dl (32.0-36.5); MEAN CORPUSCULAR VOLUME 93.1 fl (80.0-96.0); PLATELET COUNT, AUTOMATED 237 10^3/uL (150-450); RED BLOOD COUNT 4.08 10^6/uL (4.00-5.40); WHITE BLOOD COUNT 14.4 10^3/uL (4.0-10.0)
[2019-04-26] MEDS ORDERED: VANCOMYCIN HCL 1,000 MG, VIAL MATE ADAPTER 1 EACH in D5W 250 ML IV ONE (08:00)
[2019-04-26 08:15] LABS: CALCIUM LEVEL 8.2 MG/DL (8.8-10.2); CREATININE FOR GFR 1.3 MG/DL (0.55-1.30); FREE T4 1.38 NG/DL (0.76-1.46); GLOMERULAR FILTRATION RATE 41.7 (>32); MAGNESIUM LEVEL 1.8 MG/DL (1.8-2.4); POTASSIUM SERUM 4.4 MEQ/L (3.5-5.1); THYROID STIMULATING HORMONE 4.26 uIU/ML (0.358-3.740)
[2019-04-26] MEDS: AMIODARONE 200 MG TAB (PACERONE) PO SCH ×2 (08:29→20:21)
[2019-04-26] MEDS: DOCUSATE SODIUM 100 MG CAP PO SCH ×2 (08:29→20:21)
[2019-04-26] MEDS ORDERED: ENOXAPARIN 60 MG/0.6 ML SYR (J1650) SC SCH (09:00)
--- NOTE | 2019-04-26 10:07 | REP ---
CT of the chest without IV contrast: Comparison is 04/09/2019. There are bilateral pleural effusions. The right pleural effusion is larger. This is unchanged. Both pleural effusions have slightly decreased in size. The bilateral infiltrates identified on the comparison study have resolved. There are numerous bulla throughout the lung patel bilaterally. No masses or nodules are identified. Cardiac size is enlarged. This is unchanged. There is no pericardial effusion. The unenhanced thoracic aorta is unremarkable except for calcified atheroma. There is a 2.1 cm subcapsular cyst in the liver with a peripheral calcification, unchanged. There is a nonspecific 1 cm hypodensity in the right lobe of the liver, more inferiorly, unchanged. Impression: Bilateral pleural effusions as described. Both pleural effusions are slightly decreased in size, however, the right pleural effusion remains larger than the left. The previous bilateral infiltrates have resolved. Persisting cardiomegaly without pericardial effusion. There are surgical clips in the right axilla, unchanged. Electronically Signed by Luis Rodriguez MD 04/26/2019 09:59 A
--- NOTE | 2019-04-26 11:24 | PHACANCOPD ---
PHARMACY VANCOMYCIN DOSING Pt Demographics Demographics Patient Age:84 , Weight:63.000 , Gender: female Adjusted Body Weight Date: 04/26/19, Adjusted Body Weight: Kg Events Past 24 Hours Events Past 24 Hours: YES: Change in CrCl, Fever, Elevation in WBC; NO: Dialysis, Diuretic Therapy, Pending Diagnostics, Pending Procedures, Other Vancomycin Vancomycin Target Ranges: 15-20 mcg/ml Vancomycin Load Y/N: Yes Load Dose Date Time Vancomycin Load Dose: 1G Date: 04/26 Time: 0900 Vancomycin Dose Date: 04/26/19. Current Vancomycin Dose: Intermittent Dosing?: No Labs Labs Vital Signs Label Value Date Time Patient Temperature 103.0 degrees F 04/26/19 0800 Temperature Source Rectal 04/26/19 0800 Patient Temperature 98.7 degrees F 04/26/19 0400 Temperature Source Temporal 04/26/19 0400 Patient Temperature 98.7 degrees F 04/26/19 0330 Temperature Source Temporal 04/26/19 0330 Item Value Date Time White Blood Count 14.4 10^3/uL H 04/26/19 0714 White Blood Count 10.1 10^3/uL H 04/25/19 2206 Neutrophils (%) (Auto) 89.9 % H 04/25/192205 Neutrophils # (Auto) 9.1 10^3/uL H 04/25/192205 Creatinine 1.30 MG/DL 04/26/19713 Creatinine 1.35 MG/DL H 04/25/192205 Lactic Acid Level 2.4 MMOL/L *H 04/26/19 0714 Micro Microbiology 04/25/19 Blood Culture, Received Pending 04/25/19 Blood Culture, Received Pending 04/26/19 Respiratory Virus Panel (PCR) ([facility]) - Final, Complete 04/25/19 Urine Culture, Received Pending Creatinine Clearance Date:04/26/19. Creatinine Clearance: . Assessment and Plan Maintaining Current Dose?: Yes Reason for dose change: No Dose Change Pharmacist Note Pharmacist Note Date: 04/26/19. Pharmacist note: Pt. is an 84 year old female who presented with high blood pressure, fever and chills. Source of infection is unknown. Chest xray looks clear. Pt. was started on Levaquin and Vancomycin. She received Vanco 1G IV @0900 today 04/26. I have scheduled her to continue with Vanco 1G IV Q24H at 0700 tomorrow. MRSA PCR was ordered when Vanco was ordered as respiratory infxn, however even if it comes back negative, based on clinical presentation I do not feel I would suggest discontinuation of Vancomycin until blood cultures return. We will continue to monitor and adjust dose as needed. LUCY PHILLIPS [facility] Apr 26, 2019 11:24
[2019-04-26] MEDS: ENOXAPARIN 30 MG/0.3 ML SYR (J1650) SC SCH (12:15)
--- NOTE | 2019-04-26 13:10 | ECGEPIP ---
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
--- NOTE | 2019-04-26 13:34 | IPNPDOC ---
Date Seen The patient was seen on 04/26/19. Progress Note SUBJECTIVE: Patient was admitted for fevers and chills. She is lying comfortably in bed has no complaints. Patient denies chest pain, shortness breath, nausea, vomiting or sputum production. OBJECTIVE PHYSICAL EXAMINATION: VITAL SIGNS: Please see below. GENERAL: Pleasant female lying in bed awake alert oriented speaking in complete sentences no acute distress HEENT: Slightly dry mucous membranes with some JVD 4mm CARDIOVASCULAR: S1 S2 regular 1/6 systolic murmur appreciated at the fifth intercostal space on the right RESPIRATORY: Clear to auscultation anteriorly, rhonchi at the lung bases bilaterally ABDOMINAL: Bowel sounds present abdomen soft and non-tender EXTREMITIES: No clubbing cyanosis. 2+ pitting edema b/l lower extremities NEUROLOGICAL: Spontaneously moves all 4 extremities cranial 2 through 12 grossly intact no gross focal deficits appreciated PSYCHOLOGICAL: Appropriate LABORATORY DATA, MICROBIOLOGY: Please see below. IMAGING STUDIES: 1. Chest Xray - Diffuse interstitial coarsening as described. Bilateral pleural effusions. Cardiomegaly. 2. Chest CT - Bilateral pleural effusions as described. Both pleural effusions are slightly decreased in size, however, the right pleural effusion remains larger than the left. The previous bilateral infiltrates have resolved. Persisting cardiomegaly without pericardial effusion. There are surgical clips in the right axilla, unchanged. ASSESSMENT AND PLAN: This is a 84-year-old female with fevers and chills. PROBLEMS: 1. Fevers, chills -unsure of source: pneumonia versus decompensated heart failure. Continue with vancomycin and Levaquin for antibiotic coverage. Repeat lactic acid. MRSA screen, pneumonia, Legionella, Mycoplasma screen pending. Blood cultures x 2 as well as respiratory panel pending. CT of the chest negative for pneumonia does show bilateral effusions 2. Decompensated? Systolic congestive heart failure with reduced ejection fraction at 35%. Has 2+ pitting edema bilaterally lower extremities slight JVD. Discontinue IV fluids. Will monitor today. Can consider diuresis tomorrow 3. History of paroxysmal atrial fibrillation with ventricular response. Continue amiodarone. Because of a history of hematuria was discontinued Eliquis. BRAD- VASC score >2. 4. Hyponatremia, hypervolemia. Discontinue IV fluids due to fluid overload status and reduced ejection fraction. Repeat BMP and monitor sodium levels. 5. 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 Hypertensive urgency- currently stable with home medication continue as prescribed hydralazine 50 mg TID and isosorbide 30 mg TID 7. History hematuria. Continue to monitor. UA on admission was negative for blood. 8. Hyperlipidemia - continue with home Lipitor DVT prophylaxis: Lovenox 30 mg DISPOSITION: Pending clinical improvement VS, I&O, 24H, Fishbone Vital Signs/I&O Vital Signs Date Time Temp Pulse Resp B/P (MAP) Pulse Ox O2 Delivery O2 Flow Rate FiO2 04/26/19 13:00 78 143/60 (87) 98 04/26/19 12:00 99.7 22 3.0 04/26/19 02:49 Nasal Cannula I&O- Last 24 Hours up to 6 AM 04/26/19 06:00 Intake Total 0 ml Output Total 18 ml Balance -18 ml Laboratory Data 24H LABS Laboratory Tests 2 04/25/19 22:06: Immature Granulocyte % (Auto) 1.0, White Blood Count 10.1H, Red Blood Count 3.62L, Hemoglobin 11.7L, Hematocrit 34.2L, Mean Corpuscular Volume 94.5, Mean Corpuscular Hemoglobin 32.3, Mean Corpuscular Hemoglobin Concent 34.2, Red Cell Distribution Width 14.7H, Platelet Count 212, Neutrophils (%) (Auto) 89.9H, Lymphocytes (%) (Auto) 1.6L, Monocytes (%) (Auto) 7.1H, Eosinophils (%) (Auto) 0.1, Basophils (%) (Auto) 0.3, Neutrophils # (Auto) 9.1H, Lymphocytes # (Auto) 0.2L, Monocytes # (Auto) 0.7, Eosinophils # (Auto) 0.0, Basophils # (Auto) 0.0, Nucleated Red Blood Cells % (auto) 0.0, Anion Gap 8, Glomerular Filtration Rate 40.0, Lactic Acid Level 1.4, Calcium Level 8.4L, Aspartate Amino Transf (AST/SGOT) 27, Alanine Aminotransferase (ALT/SGPT) 26, Alkaline Phosphatase 100, Total Bilirubin 0.9, Direct Bilirubin 0.4H, Total Creatine Kinase 110, Creatine Kinase MB 2.1, Creatine Kinase MB Relative Index 1.91, Troponin I 0.09, Total Protein 6.9, Albumin 2.9L, Albumin/Globulin Ratio 0.73L 04/26/19 07:14: Nucleated Red Blood Cells % (auto) 0.0, Anion Gap 11, Glomerular Filtration Rate 41.7, Lactic Acid Level 2.4*H, Calcium Level 8.2L, Osmolality 267L, Blood Urea Nitrogen 18, Creatinine 1.30, Sodium Level 129L, Potassium Level 4.4, Chloride Level 94L, Carbon Dioxide Level 24, Magnesium Level 1.8, Thyroid Stimulating Hormone (TSH) 4.260H, Free Thyroxine 1.38 04/26/19 11:10: Methicillin-Resist S.aureus DNA PCR NOT DETECTED 04/26/19 11:32: Lactic Acid Followup at 4 Hours 1.2 04/26/19 12:50: CBC/BMP Laboratory Tests 04/25/19 22:06 Red Blood Count 3.62 L, Mean Corpuscular Volume 94.5, Mean Corpuscular Hemoglobin 32.3, Mean Corpuscular Hemoglobin Concent 34.2, Red Cell Distribution Width 14.7 H, Neutrophils (%) (Auto) 89.9 H, Lymphocytes (%) (Auto) 1.6 L, Monocytes (%) (Auto) 7.1 H, Eosinophils (%) (Auto) 0.1, Basophils (%) (Auto) 0.3, Neutrophils # (Auto) 9.1 H, Lymphocytes # (Auto) 0.2 L, Monocytes # (Auto) 0.7, Eosinophils # (Auto) 0.0, Basophils # (Auto) 0.0 04/26/19 07:14 Red Blood Count 4.08, Mean Corpuscular Volume 93.1, Mean Corpuscular Hemoglobin 32.1, Mean Corpuscular Hemoglobin Concent 34.5, Red Cell Distribution Width 14.6 H, Calcium Level 8.2 L Microbiology Microbiology 04/25/19 Blood Culture, Received Pending 04/25/19 Blood Culture, Received Pending 04/26/19 Respiratory Virus Panel (PCR) ([facility]) - Final, Complete 04/25/19 Urine Culture, Received Pending ARLYN HAWKINS DO Apr 26, 2019 13:34
[2019-04-26 13:43] LABS: CALCIUM LEVEL 7.9 MG/DL (8.8-10.2); CREATININE FOR GFR 1.12 MG/DL (0.55-1.30); GLOMERULAR FILTRATION RATE 49.6 (>32); POTASSIUM SERUM 4.3 MEQ/L (3.5-5.1)
[2019-04-26 14:21] LABS: OSMOLALITY URINE 514 MOSM/KG (500-800)
[2019-04-26 14:41] LABS: SODIUM,RANDOM URINE < 10 MEQ/L
[2019-04-26] MEDS ORDERED: FUROSEMIDE 40 MG TAB PO ONE (16:00)
[2019-04-26] MEDS: ATORVASTATIN 20 MG TAB PO SCH (20:20)
[2019-04-26 22:09] LABS: CALCIUM LEVEL 8.7 MG/DL (8.8-10.2); CREATININE FOR GFR 1.27 MG/DL (0.55-1.30); GLOMERULAR FILTRATION RATE 42.9 (>32); POTASSIUM SERUM 4.2 MEQ/L (3.5-5.1)
[2019-04-27] VITALS (11 sets, daily range): BP systolic 120–190; BP diastolic 50–88
[2019-04-27 01:40] LABS: CALCIUM LEVEL 7.4 MG/DL (8.8-10.2); CREATININE FOR GFR 1.25 MG/DL (0.55-1.30); GLOMERULAR FILTRATION RATE 43.7 (>32); POTASSIUM SERUM 3.8 MEQ/L (3.5-5.1)
[2019-04-27] MEDS: **hydrALAZINE** 50 MG TAB PO SCH ×3 (06:41→16:35)
[2019-04-27] MEDS: ISOSORBIDE DIN. (ISORDIL) 30 MG TAB PO SCH ×3 (06:41→16:34)
[2019-04-27 06:49] LABS: HEMATOCRIT 34.2 % (36.0-47.0); HEMOGLOBIN 11.9 g/dl (12.0-15.5); MEAN CORPUSCULAR HEMOGLOBIN 32.3 pg (27.0-33.0); MEAN CORPUSCULAR HGB CONC 34.8 g/dl (32.0-36.5); MEAN CORPUSCULAR VOLUME 92.9 fl (80.0-96.0); PLATELET COUNT, AUTOMATED 205 10^3/uL (150-450); RED BLOOD COUNT 3.68 10^6/uL (4.00-5.40); WHITE BLOOD COUNT 9.5 10^3/uL (4.0-10.0)
[2019-04-27] MEDS ORDERED: VANCOMYCIN HCL 1,000 MG, VIAL MATE ADAPTER 1 EACH in D5W 250 ML IV SCH (07:00)
[2019-04-27 07:20] LABS: CALCIUM LEVEL 7.9 MG/DL (8.8-10.2); CREATININE FOR GFR 1.25 MG/DL (0.55-1.30); GLOMERULAR FILTRATION RATE 43.7 (>32); POTASSIUM SERUM 3.9 MEQ/L (3.5-5.1)
[2019-04-27] MEDS: DOCUSATE SODIUM 100 MG CAP PO SCH ×2 (08:12→20:28)
[2019-04-27] MEDS: ENOXAPARIN 30 MG/0.3 ML SYR (J1650) SC SCH (08:12)
[2019-04-27] MEDS: AMIODARONE 200 MG TAB (PACERONE) PO SCH ×2 (08:12→20:29)
[2019-04-27] MEDS ORDERED: FUROSEMIDE 40 MG/4 ML VIAL (J1940) IV SCH (09:00)
[2019-04-27] MEDS: LevoFLOXacin IV 250 MG in IV 1 EA IV SCH (10:18)
--- NOTE | 2019-04-27 11:47 | IPNPDOC ---
Date Seen The patient was seen on 04/27/19. Progress Note SUBJECTIVE: Patient was admitted for fevers and chills. She is sititng up comfortably in bed has no complaints eating breakfast. Patient denies chest pain, shortness breath, nausea, vomiting or sputum production. States to be feeling better this am. Swelling in her lower extremities is better too. OBJECTIVE PHYSICAL EXAMINATION: VITAL SIGNS: Please see below. GENERAL: Pleasant female lying in bed awake alert oriented speaking in complete sentences no acute distress HEENT: Slightly dry mucous membranes with some JVD 4mm (improving) CARDIOVASCULAR: S1 S2 irregular irregular tachycardic rate 1/6 systolic murmur appreciated at the fifth intercostal space on the right RESPIRATORY: Clear to auscultation anteriorly, rhonchi right> left. ABDOMINAL: Bowel sounds present abdomen soft and non-tender EXTREMITIES: No clubbing cyanosis. 1+ pitting edema b/l lower extremities (improving) NEUROLOGICAL: Spontaneously moves all 4 extremities cranial 2 through 12 grossly intact no gross focal deficits appreciated PSYCHOLOGICAL: Appropriate LABORATORY DATA, MICROBIOLOGY: Please see below. IMAGING STUDIES: 1. Chest Xray - Diffuse interstitial coarsening as described. Bilateral pleural effusions. Cardiomegaly. 2. Chest CT - Bilateral pleural effusions as described. Both pleural effusions are slightly decreased in size, however, the right pleural effusion remains larger than the left. The previous bilateral infiltrates have resolved. Persist ing cardiomegaly without pericardial effusion. There are surgical clips in the right axilla, unchanged. ASSESSMENT AND PLAN: This is a 84-year-old female with fevers and chills. PROBLEMS: 1. Fevers, chills - possible community accquired pneumonia Continue with Levaquin for antibiotic coverage x4 days.Blood cultures x 2 negative as respiratory panel negative. CT of the chest negative for pneumonia but does show bilateral effusions though. 2. Decompensated? Systolic congestive heart failure with reduced ejection fraction at 35%. Has 2+ pitting edema bilaterally lower extremities slight JVD. diuresis w/ lasix 40mg IV, monitor creatine function. 3. History of paroxysmal atrial fibrillation with ventricular response. Continue amiodarone. Because of a history of hematuria was discontinued Eliquis. BRAD- VASC score >2.need to all outpatient about restarting anticoagulation. not rate controlled. Titrate metoprolol tartrate. 4. Hyponatremia, hypervolemia. Discontinue IV fluids due to fluid overload status and reduced ejection fraction. c/w Lasix to remove free H20, should help with sodium levels.Repeat BMP and monitor. 5. 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 Hypertensive urgency- currently stable with home medication continue as prescribed hydralazine 50 mg TID and isosorbide 30 mg TID 7. History hematuria. Continue to monitor. UA on admission was negative for blood. Because of a history though will need to have outpatient follow-up cystoscopy. 8. Hyperlipidemia - continue with home Lipitor DVT prophylaxis: Lovenox 30 mg DISPOSITION: Pending clinical improvement VS, I&O, [facility]&O Vital Signs Date Time Temp Pulse Resp B/P (MAP) Pulse Ox O2 Delivery O2 Flow Rate FiO2 04/27/19 08:00 98.0 101 20 160/72 (101) 97 3.0 04/26/19 02:49 Nasal Cannula I&O- Last 24 Hours up to 6 AM 04/27/19 05:59 Intake Total 1050 ml Output Total 150 ml Balance 900 ml Laboratory Data 24H LABS Laboratory Tests 2 04/26/19 12:50: Anion Gap 9, Glomerular Filtration Rate 49.6, Blood Urea Nitrogen 17, Creatinine 1.12, Sodium Level 126L, Potassium Level 4.3, Chloride Level 93L, Carbon Dioxide Level 24, Calcium Level 7.9L 04/26/19 14:04: Urine Random Osmolality 514, Urine Random Creatinine 149.0, Urine Random Sodium < 10 04/26/19 21:05: Anion Gap 8, Glomerular Filtration Rate 42.9, Blood Urea Nitrogen 17, Creatinine 1.27, Sodium Level 125L, Potassium Level 4.2, Chloride Level 91L, Carbon Dioxide Level 26, Calcium Level 8.7L 04/27/19 01:07: Anion Gap 9, Glomerular Filtration Rate 43.7, Blood Urea Nitrogen 20H, Creatinine 1.25, Sodium Level 129L, Potassium Level 3.8, Chloride Level 94L, Carbon Dioxide Level 26, Calcium Level 7.4L 04/27/19 06:37: Nucleated Red Blood Cells % (auto) 0.0, Anion Gap 9, Glomerular Filtration Rate 43.7, Blood Urea Nitrogen 21H, Creatinine 1.25, Sodium Level 129L, Potassium Level 3.9, Chloride Level 94L, Carbon Dioxide Level 26, Calcium Level 7.9L CBC/BMP Laboratory Tests 04/26/19 12:50 Calcium Level 7.9 L 04/26/19 21:05 Calcium Level 8.7 L 04/27/19 01:07 Calcium Level 7.4 L 04/27/19 06:37 Calcium Level 7.9 L, Red Blood Count 3.68 L, Mean Corpuscular Volume 92.9, Mean Corpuscular Hemoglobin 32.3, Mean Corpuscular Hemoglobin Concent 34.8, Red Cell Distribution Width 14.5 Microbiology Microbiology 04/25/19 Blood Culture - Preliminary, Resulted No growth after 24 hours . All specim... 04/25/19 Blood Culture - Preliminary, Resulted No growth after 24 hours . All specim... 04/26/19 Respiratory Virus Panel (PCR) ([facility]) - Final, Complete 04/25/19 Urine Culture - Final, Complete ARLYN HAWKINS DO Apr 27, 2019 11:47
[2019-04-27] MEDS ORDERED: METOPROLOL TART 12.5 MG PER 1/2 TAB PO SCH (12:00)
[2019-04-27 13:50] LABS: CALCIUM LEVEL 8.1 MG/DL (8.8-10.2); CREATININE FOR GFR 1.29 MG/DL (0.55-1.30); GLOMERULAR FILTRATION RATE 42.1 (>32); POTASSIUM SERUM 3.8 MEQ/L (3.5-5.1)
[2019-04-27] MEDS ORDERED: ONDANSETRON 4MG/2ML VIAL (J2405) IV PRN (16:30)
[2019-04-27] MEDS: METOPROLOL TART 25 MG TABLET PO SCH ×2 (17:17→23:43)
[2019-04-27 19:29] LABS: CALCIUM LEVEL 7.7 MG/DL (8.8-10.2); CREATININE FOR GFR 1.28 MG/DL (0.55-1.30); GLOMERULAR FILTRATION RATE 42.5 (>32); POTASSIUM SERUM 3.9 MEQ/L (3.5-5.1)
[2019-04-27] MEDS: ATORVASTATIN 20 MG TAB PO SCH (20:29)
[2019-04-28 01:26] LABS: CALCIUM LEVEL 7.7 MG/DL (8.8-10.2); CREATININE FOR GFR 1.41 MG/DL (0.55-1.30); POTASSIUM SERUM 3.8 MEQ/L (3.5-5.1)
[2019-04-28 04:00] VITALS: BP 120/42
[2019-04-28 05:24] LABS: HEMATOCRIT 34.1 % (36.0-47.0); HEMOGLOBIN 11.7 g/dl (12.0-15.5); MEAN CORPUSCULAR HEMOGLOBIN 31.9 pg (27.0-33.0); MEAN CORPUSCULAR HGB CONC 34.3 g/dl (32.0-36.5); MEAN CORPUSCULAR VOLUME 92.9 fl (80.0-96.0); PLATELET COUNT, AUTOMATED 217 10^3/uL (150-450); RED BLOOD COUNT 3.67 10^6/uL (4.00-5.40); WHITE BLOOD COUNT 12.1 10^3/uL (4.0-10.0)
[2019-04-28] MEDS: METOPROLOL TART 25 MG TABLET PO SCH ×4 (05:58→23:59)
[2019-04-28] MEDS: **hydrALAZINE** 50 MG TAB PO SCH ×3 (07:00→16:22)
[2019-04-28 08:00] VITALS: BP 130/70
[2019-04-28] MEDS: ENOXAPARIN 30 MG/0.3 ML SYR (J1650) SC SCH (08:16)
[2019-04-28] MEDS: DOCUSATE SODIUM 100 MG CAP PO SCH ×2 (08:16→21:00)
[2019-04-28] MEDS: ISOSORBIDE DIN. (ISORDIL) 30 MG TAB PO SCH ×3 (08:16→17:15)
[2019-04-28] MEDS: AMIODARONE 200 MG TAB (PACERONE) PO SCH ×2 (08:16→21:33)
[2019-04-28] MEDS: LevoFLOXacin IV 250 MG in IV 1 EA IV SCH (08:17)
--- NOTE | 2019-04-28 09:52 | IPNPDOC ---
Subjective Date Seen The patient was seen on 04/28/19. Subjective Chief Complaint/HPI Patient seen and examined at the bedside. Reports that her respiratory status continues to improve. She worked with physical therapy yesterday and requires further functional optimization. No acute overnight events noted. Objective Physical Examination General Exam: Positive: Alert, Cooperative, No Acute Distress Eye Exam: Positive: PERRLA, Conjunctiva & lids normal ENT Exam: Positive: Atraumatic, Mucous membr. moist/pink Neck Exam: Positive: JVD Chest Exam: Positive: Other (faint bibasilar crackles noted on auscultation bilaterally) Heart Exam: Positive: Rate Normal, Normal S1, Normal S2 Abdomen Exam: Positive: Normal bowel sounds, Soft; Negative: Tenderness Extremity Exam: Positive: Edema (1+ pitting edema in the lower extremities bilaterally); Negative: Tenderness Neuro Exam: Positive: Normal Speech Psych Exam: Positive: Mental status NL, Mood NL, Oriented x 3 Assessment /Plan Plan/VTE VTE Prophylaxis Ordered?: Yes Plan 1. Fevers, chills - possible community accquired pneumonia Continue with Levaquin for antibiotic coverage.Blood cultures x 2 negative as respiratory panel negative. CT noted, B/L pleural effusions with possible underlying PNA 2. Decompensated Systolic congestive heart failure with reduced ejection fraction at 35%. Has 2+ pitting edema bilaterally lower extremities slight JVD. Cont diuresis w/ lasix as tolerated, monitor creatine function. 3. History of paroxysmal atrial fibrillation with ventricular response. Continue amiodarone. Because of a history of hematuria was discontinued Eliquis. BRAD- VASC score >2.need to all outpatient about restarting anticoagulation. not rate controlled. Titrate metoprolol tartrate. Patient counseled about following up as outpatient for cystoscopy 4. Hyponatremia, hypervolemia. Discontinue IV fluids due to fluid overload status and reduced ejection fraction. c/w Lasix to remove free H20, should help with sodium levels.Repeat BMP and monitor. Sodium improving 5. 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 Hypertensive urgency- currently stable with home medication continue as prescribed hydralazine 50 mg TID and isosorbide 30 mg TID 7. History hematuria. Continue to monitor. UA on admission was negative for blood. Because of a history though will need to have outpatient follow-up cystoscopy. 8. Hyperlipidemia - continue with home Lipitor DVT prophylaxis: Lovenox 30 mg DISPOSITION: Pending clinical improvement VS, I&O, 24H, [place] Vital Signs/I&O Vital Signs Date Time Temp Pulse Resp B/P (MAP) Pulse Ox O2 Delivery O2 Flow Rate FiO2 04/28/19 08:16 130/70 04/28/19 08:00 1.0 04/28/19 08:00 98.3 89 20 93 04/26/19 02:49 Nasal Cannula I&O- Last 24 Hours up to 6 AM 04/28/19 06:00 Intake Total 730 ml Output Total 1550 ml Balance -820 ml Laboratory Data 24H LABS Laboratory Tests 2 04/27/19 12:49: Anion Gap 7L, Glomerular Filtration Rate 42.1, Blood Urea Nitrogen 21H, Creatinine 1.29, Sodium Level 126L, Potassium Level 3.8, Chloride Level 93L, Carbon Dioxide Level 26, Calcium Level 8.1L 04/27/19 18:53: Anion Gap 11, Glomerular Filtration Rate 42.5, Blood Urea Nitrogen 21H, Creatinine 1.28, Sodium Level 128L, Potassium Level 3.9, Chloride Level 93L, Carbon Dioxide Level 24, Calcium Level 7.7L 04/28/19 00:57: Anion Gap 7L, Glomerular Filtration Rate 38.0, Blood Urea Nitrogen 25H, Creatinine 1.41H, Sodium Level 128L, Potassium Level 3.8, Chloride Level 94L, Carbon Dioxide Level 27, Calcium Level 7.7L 04/28/19 04:50: Nucleated Red Blood Cells % (auto) 0.0 CBC/BMP Laboratory Tests 04/27/19 12:49 Calcium Level 8.1 L 04/27/19 18:53 Calcium Level 7.7 L 04/28/19 00:57 Calcium Level 7.7 L 04/28/19 04:50 Red Blood Count 3.67 L, Mean Corpuscular Volume 92.9, Mean Corpuscular Hemoglobin 31.9, Mean Corpuscular Hemoglobin Concent 34.3, Red Cell Distribution Width 14.6 H Microbiology Microbiology 04/25/19 Blood Culture - Preliminary, Resulted No Growth after 48 hours. All Specime... 04/25/19 Blood Culture - Preliminary, Resulted No Growth after 48 hours. All Specime... 04/26/19 Respiratory Virus Panel (PCR) ([facility]) - Final, Complete 04/25/19 Urine Culture - Final, Complete CHRISTOPHE TAVARES MD Apr 28, 2019 09:52 NIKO CAZARES DO Apr 29, 2019 10:13
[2019-04-28 12:00] VITALS: BP 130/54
[2019-04-28 16:00] VITALS: BP 130/62
[2019-04-28 20:00] VITALS: BP 102/58
[2019-04-28] MEDS: ATORVASTATIN 20 MG TAB PO SCH (21:33)
[2019-04-28 23:59] VITALS: BP 142/62
[2019-04-29 04:00] VITALS: BP 135/68
[2019-04-29 05:29] LABS: HEMATOCRIT 33.2 % (36.0-47.0); HEMOGLOBIN 11.4 g/dl (12.0-15.5); MEAN CORPUSCULAR HEMOGLOBIN 31.1 pg (27.0-33.0); MEAN CORPUSCULAR HGB CONC 34.3 g/dl (32.0-36.5); MEAN CORPUSCULAR VOLUME 90.5 fl (80.0-96.0); PLATELET COUNT, AUTOMATED 204 10^3/uL (150-450); RED BLOOD COUNT 3.67 10^6/uL (4.00-5.40); WHITE BLOOD COUNT 10.9 10^3/uL (4.0-10.0)
[2019-04-29] MEDS: METOPROLOL TART 25 MG TABLET PO SCH ×4 (06:07→23:39)
[2019-04-29] MEDS: **hydrALAZINE** 50 MG TAB PO SCH ×3 (07:00→17:00)
[2019-04-29] MEDS: ISOSORBIDE DIN. (ISORDIL) 30 MG TAB PO SCH ×3 (07:36→17:43)
[2019-04-29 08:00] VITALS: BP 138/64
[2019-04-29 08:24] LABS: CALCIUM LEVEL 7.8 MG/DL (8.8-10.2); CREATININE FOR GFR 1.58 MG/DL (0.55-1.30); GLOMERULAR FILTRATION RATE 33.3 (>32); POTASSIUM SERUM 3.5 MEQ/L (3.5-5.1)
[2019-04-29] MEDS: DOCUSATE SODIUM 100 MG CAP PO SCH ×2 (08:35→20:48)
[2019-04-29] MEDS: AMIODARONE 200 MG TAB (PACERONE) PO SCH ×2 (08:35→20:48)
[2019-04-29] MEDS: ENOXAPARIN 30 MG/0.3 ML SYR (J1650) SC SCH (08:36)
[2019-04-29] MEDS: LevoFLOXacin IV 250 MG in IV 1 EA IV SCH (08:37)
--- NOTE | 2019-04-29 10:15 | IPNPDOC ---
Subjective Date Seen The patient was seen on 04/29/19. Subjective Chief Complaint/HPI Patient reported generally feeling unwell, weak, with decreased appetite. She reported improvement since admission. Denies fever/chills. She has been able to walk with a walker(uses walker at home) General: Denies: Chills, Normal Appetite (decreased appetite) Constitutional: Reports: Weakness; Denies: Chills, Fever Pulmonary: Denies: Dyspnea Cardiovascular: Denies: Chest Pain, Paroxysmal Noc. Dyspnea Gastrointestinal: Denies: Abdominal Pain, Diarrhea, Constipation, Hematochezia Objective Physical Examination General Exam: Positive: Alert, Cooperative, No Acute Distress Eye Exam: Positive: PERRLA, Conjunctiva & lids normal; Negative: Sclera icteric ENT Exam: Positive: Atraumatic, Mucous membr. moist/pink Chest Exam: Positive: Clear to auscultation, Normal air movement; Negative: Rales, Wheezing, Diminished Heart Exam: Positive: Rate Normal, Normal S1, Normal S2 Abdomen Exam: Positive: Normal bowel sounds, Soft; Negative: Tenderness Extremity Exam: Positive: Normal pulses; Negative: Cyanosis, Edema, Swelling Neuro Exam: Positive: Normal Speech Psych Exam: Positive: Mental status NL, Mood NL, Memory Intact, Oriented x 3 Assessment /Plan Assessment 1. Possible community acquired pneumonia. Fevers and chills resolved. Continue with Levaquin day 3/7 or antibiotic coverage. Blood cultures x 2 negative and respiratory panel negative. CXR noted b/l. pleural effusions with possible underlying PNA. CT noted previous bilateral infiltrates have resolved. 2. Decompensated Systolic congestive heart failure with reduced ejection fraction at 35%; resolved. -No pitting edema noted in bialteral lower extremities. Lasix d/c. -Pt on 1800ml/hr fluid restriction 3. History of paroxysmal atrial fibrillation with ventricular response. -Pt in sinus rhythm currently. Continue amiodarone. -Eliquis d/c because of a history of hematuria. BRAD-VASC score >2; need to all outpatient about restarting anticoagulation. -Rate controlled on metoprolol tartrate. -Patient counseled about following up as outpatient for cystoscopy 4. Hyponatremia. -Encouraged increased sodium intake while on 2g Na diet; pt reported poor appetite. -Lasix d/c as pt does not appear to be fluid overload as this time. -Repeat BMP and monitor. Sodium improving 5. BRUCE on chronic kidney disease stage III; -History of right hydronephrosis with secondary the congenital PJ obstruct ion.monitor. -Creat 1.58. Encourage PO fluid intake; fluid restriction change from 1500ml to 1800ml/24 hrs; may increase based on fluid status/BRUCE improvement 6. Hypertensive urgency - currently stable with home medication continue as prescribed hydralazine 50 mg TID and isosorbide 30 mg TID 7. History hematuria. -Continue to monitor. UA on admission was negative for blood. -Because of a history though will need to have outpatient follow-up cystoscopy. 8. Hyperlipidemia - continue with home Lipitor 9. DVT prophylaxis. -Cont Lovenox 30 mg DISPOSITION: Pending clinical improvement BRUCE and hyponatremia. Pending PT/OT clearance Plan/VTE VTE Prophylaxis Ordered?: Yes Plan Activity: Encourage Ambulation Diagnostics: Repeat Labs in AM Anticipated Discharge: Home With Services VS, I&O, 24H, [facility] Vital Signs/I&O Vital Signs Date Time Temp Pulse Resp B/P (MAP) Pulse Ox O2 Delivery O2 Flow Rate FiO2 04/29/19 08:00 97.2 75 20 138/64 (88) 94 04/28/19 08:00 1.0 04/26/19 02:49 Nasal Cannula I&O- Last 24 Hours up to 6 AM 04/29/19 05:59 Intake Total 810 ml Output Total 550 ml Balance 260 ml Laboratory Data 24H LABS Laboratory Tests 2 04/29/19 05:02: Anion Gap 12, Glomerular Filtration Rate 33.3, Blood Urea Nitrogen 35H, Creatinine 1.58H, Sodium Level 129L, Potassium Level 3.5, Chloride Level 93L, Carbon Dioxide Level 24, Calcium Level 7.8L 04/29/19 05:03: Nucleated Red Blood Cells % (auto) 0.0 CBC/BMP Laboratory Tests 04/29/19 05:02 Calcium Level 7.8 L 04/29/19 05:03 Red Blood Count 3.67 L, Mean Corpuscular Volume 90.5, Mean Corpuscular Hemoglobin 31.1, Mean Corpuscular Hemoglobin Concent 34.3, Red Cell Distribution Width 14.4 Microbiology Microbiology 04/25/19 Blood Culture - Preliminary, Resulted No Growth after 72 hours. All specime... 04/25/19 Blood Culture - Preliminary, Resulted No Growth after 72 hours. All specime... 04/26/19 Respiratory Virus Panel (PCR) ([facility]) - Final, Complete 04/25/19 Urine Culture - Final, Complete NIKO CAZARES DO Apr 29, 2019 10:15
[2019-04-29 12:00] VITALS: BP 120/80
[2019-04-29 16:00] VITALS: BP 140/70
[2019-04-29 20:00] VITALS: BP 139/65
[2019-04-29] MEDS: ATORVASTATIN 20 MG TAB PO SCH (20:48)
[2019-04-30] VITALS (7 sets, daily range): BP systolic 126–137; BP diastolic 65–71
[2019-04-30] MEDS: METOPROLOL TART 25 MG TABLET PO SCH ×4 (05:27→23:42)
[2019-04-30 05:45] LABS: HEMATOCRIT 33.8 % (36.0-47.0); HEMOGLOBIN 11.6 g/dl (12.0-15.5); MEAN CORPUSCULAR HEMOGLOBIN 30.7 pg (27.0-33.0); MEAN CORPUSCULAR HGB CONC 34.3 g/dl (32.0-36.5); MEAN CORPUSCULAR VOLUME 89.4 fl (80.0-96.0); PLATELET COUNT, AUTOMATED 209 10^3/uL (150-450); RED BLOOD COUNT 3.78 10^6/uL (4.00-5.40); WHITE BLOOD COUNT 8.9 10^3/uL (4.0-10.0)
[2019-04-30 06:11] LABS: CALCIUM LEVEL 7.7 MG/DL (8.8-10.2); CREATININE FOR GFR 1.61 MG/DL (0.55-1.30); GLOMERULAR FILTRATION RATE 32.6 (>32); POTASSIUM SERUM 3.4 MEQ/L (3.5-5.1)
[2019-04-30] MEDS: **hydrALAZINE** 50 MG TAB PO SCH ×3 (06:57→17:00)
[2019-04-30] MEDS: ISOSORBIDE DIN. (ISORDIL) 30 MG TAB PO SCH ×3 (06:59→17:28)
[2019-04-30] MEDS: DOCUSATE SODIUM 100 MG CAP PO SCH ×2 (09:00→19:51)
--- NOTE | 2019-04-30 09:15 | IPNPDOC ---
Text Note Date of Service The patient was seen on 04/30/19. NOTE Subjective Chief Complaint/HPI Patient reported she is still generally feeling unwell, weak, with decreased appetite. She reported she has tried to increased oral intake yesterday. Denies fever/chills, coughing, rhinorrhea, or dyspnea. She has been walking with a walker in the hallway. Patient indicated that at this time she does not want something to help with her appetite. ROS General: Denies fever/chills. Pos for decreased appetite and generalized weakness. Pulmonary: Denies dyspnea or cough. Cardiovascular: Denies chest Pain or palpitation. Gastrointestinal: Denies abdominal Pain, Diarrhea, Constipation, or Hematochezia : Denies hematuria/orange color urine. Objective Physical Examination General Exam: Alert, Cooperative, No Acute Distress Eye Exam: PERR, Conjunctiva & lids normal. No sclera icteric ENT Exam: Head normocephalic, atraumatic, mucous membr. moist/pink Chest Exam: Clear to auscultation b/l, Normal air movement. Denies rales, Wheezing, Diminished Heart Exam: Mild tachycardia, rhythm normal. Normal S1 and S2 Abdomen Exam: Normal bowel sounds, Soft. Denies tenderness Extremity Exam: Normal radial pulses b/l; No obvious cyanosis, Edema, Swelling Neuro Exam: Normal Speech, cognitive function and mental status grossly intact. Alert and oriented x 3 Psych Exam: Mood appears grossly stable. Quiet. Assessment and Plan: 1. Possible community acquired pneumonia. Fevers and chills resolved. S/p Levaquin day 3/; pt started on IV Ceftriaxone 04/29. Blood cultures x 2 negative and respiratory panel negative. CXR noted b/l. pleural effusions with possible underlying PNA. CT noted previous bilateral infiltrates have resolved. 2. Decompensated Systolic congestive heart failure with reduced ejection fraction at 35%; resolved. -No pitting edema noted in bialteral lower extremities. Lasix d/c. -Pt on 1800ml/hr fluid restriction 3. History of paroxysmal atrial fibrillation with ventricular response. -Pt in sinus rhythm currently. Continue amiodarone. -Eliquis d/c because of a history of hematuria. BRAD-VASC score >2; need to follow up outpatient about restarting anticoagulation. -Rate controlled on metoprolol tartrate. -Patient counseled about following up as outpatient for cystoscopy 4. Hyponatremia, improving. -Encouraged increased sodium intake while on 2g Na diet; pt reported poor appetite but desired to appetite stimulant at this time. Discussed her oral intake for the past 24 hours with her and discussed with her extensively to encourage oral intake as she only had 680ml PO intake for the past 24 hours. -Lasix d/c as pt does not appear to be fluid overload as this time. -Repeat BMP and monitor. Sodium improving 5. Hypokalemia -K 3.4. K 40meq PO once ordered. Cont to monitor with BMP 5. 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 -Creat 1.61. Pt PO intake 680mml past 24 hrs. Encourage PO fluid intake; fluid restriction 1800ml/24 hrs; may increase based on fluid status/BRUCE improvement 6. Hypertensive urgency; resolved - currently stable with home medication continue as prescribed hydralazine 50 mg TID and isosorbide 30 mg TID 7. History hematuria. -Continue to monitor. UA on admission was negative for blood. Pt denied hematuria. -Because of a history though will need to have outpatient follow-up cystoscopy. 8. Hyperlipidemia - continue with home Lipitor 9. DVT prophylaxis. -Cont Lovenox 30 mg DISPOSITION: Pending clinical improvement BRUCE and hyponatremia. Pending PT/OT clearance VS,Fishbone, I+O VS, Fishbone, I+O Laboratory Tests 04/30/19 05:12 Red Blood Count 3.78 L, Mean Corpuscular Volume 89.4, Mean Corpuscular Hemoglobin 30.7, Mean Corpuscular Hemoglobin Concent 34.3, Red Cell Distribution Width 14.6 H, Calcium Level 7.7 L Vital Signs Date Time Temp Pulse Resp B/P (MAP) Pulse Ox O2 Delivery O2 Flow Rate FiO2 04/30/19 08:00 97.1 91 18 130/70 (90) 94 04/28/19 08:00 1.0 04/26/19 02:49 Nasal Cannula I&O- Last 24 Hours up to 6 AM 04/30/19 06:00 Intake Total 680 ml Output Total 700 ml Balance -20 ml GME ATTESTATION GME ATTESTATION My faculty preceptor for this patient encounter was physically present during the encounter and was fully available. All aspects of the patient interview, examination, medical decision making process, and medical care plan development were reviewed and approved by the faculty preceptor. The faculty preceptor is aware and concurs with the plan as stated in the body of this note and will attest to such by his/her cosignature. ATTENDING NOTE I, Mg Lambert, have independently examined this patient and performed my own physical exam, as well as reviewed the documentation and edited where necessary. I have discussed in detail with the resident / student the findings and plan of treatment as documented by the resident / student and edited their note. I agree with their findings and treatment plan and have edited their documentation. I will continue to follow the patient during this hospital stay. NIKO CAZARES DO Apr 30, 2019 09:15 MG LAMBERT MD Apr 30, 2019 15:27
[2019-04-30] MEDS: CEFDINIR 300 MG CAP (OMNICEF) PO SCH (09:34)
[2019-04-30] MEDS: AMIODARONE 200 MG TAB (PACERONE) PO SCH ×2 (09:34→19:52)
[2019-04-30] MEDS: ENOXAPARIN 30 MG/0.3 ML SYR (J1650) SC SCH (09:35)
[2019-04-30] MEDS ORDERED: POTASSIUM CHLORIDE 10 MEQ SR TABLET PO ONE (10:00)
[2019-04-30] MEDS: ATORVASTATIN 20 MG TAB PO SCH (19:52)
[2019-05-01 04:00] VITALS: BP 129/60
[2019-05-01 05:48] VITALS: BP 145/72
[2019-05-01] MEDS: METOPROLOL TART 25 MG TABLET PO SCH ×2 (05:50→11:58)
[2019-05-01 06:05] LABS: HEMATOCRIT 34.7 % (36.0-47.0); HEMOGLOBIN 11.8 g/dl (12.0-15.5); MEAN CORPUSCULAR HEMOGLOBIN 30.6 pg (27.0-33.0); MEAN CORPUSCULAR VOLUME 90.1 fl (80.0-96.0); PLATELET COUNT, AUTOMATED 232 10^3/uL (150-450); RED BLOOD COUNT 3.85 10^6/uL (4.00-5.40); WHITE BLOOD COUNT 8.1 10^3/uL (4.0-10.0)
[2019-05-01 06:22] LABS: CREATININE FOR GFR 1.52 MG/DL (0.55-1.30); GLOMERULAR FILTRATION RATE 34.9 (>32)
[2019-05-01 06:42] VITALS: BP 142/73
[2019-05-01] MEDS: **hydrALAZINE** 50 MG TAB PO SCH ×2 (06:45→09:09)
[2019-05-01] MEDS: ISOSORBIDE DIN. (ISORDIL) 30 MG TAB PO SCH ×2 (06:45→12:01)
[2019-05-01 08:00] VITALS: BP 123/66
[2019-05-01] MEDS: DOCUSATE SODIUM 100 MG CAP PO SCH (09:00)
[2019-05-01] MEDS: AMIODARONE 200 MG TAB (PACERONE) PO SCH (09:09)
[2019-05-01] MEDS: CEFDINIR 300 MG CAP (OMNICEF) PO SCH (09:09)
[2019-05-01] MEDS: ENOXAPARIN 30 MG/0.3 ML SYR (J1650) SC SCH (09:10)
[2019-05-01] MEDS ORDERED: CEFD300CAP PO (09:53)
[2019-05-01 11:58] VITALS: BP 147/70
[2019-05-01 12:01] VITALS: BP 147/70
--- NOTE | 2019-05-01 13:09 | DS.PDOC ---
Discharge Summary General Date of Admission Apr 26, 2019 at 00:53 Date of Discharge 05/01/2019 Discharge Summary PROCEDURES PERFORMED DURING STAY: [None]. ADMITTING DIAGNOSES: 1. fever and chills , possibly HCAP/CAP 2. hyponatremia 3. HTN urgency 4. afib DISCHARGE DIAGNOSES: 1. Possible community acquired pneumonia 2. Decompensated Systolic congestive heart failure with reduced ejection fraction at 35%; resolved. 3. History of paroxysmal atrial fibrillation with ventricular response. 4. Hyponatremia, improving 5. Hypokalemia; resolved 6. BRUCE on chronic kidney disease stage III; 7. Hypertensive urgency; resolved 8. History hematuria. 9. Hyperlipidemia COMPLICATIONS/CHIEF COMPLAINT: Fever And Chills. HISTORY OF PRESENT ILLNESS: Pt is a 84 yo female with PMH of htn who presented to the ed for fever and chills for 1 day without any focal sign of infection. reported that the day prior to admission she went to the work and family life consultant and every thing was ok. However later she started having fever and chills with BP elevated in the 190s despite taking her meds. Patient denied any pain, headache, visual changes, nausea, vomiting , diarrhea, dyspnea, chest pain, or dysuria. HOSPITAL COURSE: Initial CXR showed diffuse interstitial coarsening with bilateral pleural effusions.Pt was started on vanc and levaquin. She was also started on IVF as hyponatremia was noted. She was given IV then PO hydralazine and isosorbid dinitrite for her elevated BP. Her BP gradually stablized. She was noted to have hx of hematuria; UA upon admission neg for blood but pos for 4 RBC. Pt denies hematuria. IV NS was later d/c as pt was noted to have b/l leg edema with hx of systolic heart failure LVEF 35% on recent echo. She was started on lasix 04/26 for the leg edema. CT chest obtained later during hospitalization showed bilateral pleural effusions improving in size with bilateral infiltrates resolving. 04/28 pt was noted to have BRUCE. Pt continued to have poor appetite throughout hospitalization, and her fluid restriction was increased from 1500ml to 1800ml. Extensive discussions to encourage pt to increase oral intake done within limit of 1800ml and 2g Na diet was done with pt. Pt declined med to help with appetite. Her hyponatremia and BRUCE gradually improve with increased oral intake; hypokalemia resolved. On the day of discharge, pt denied any fever, chills, chest pain, dyspnea, or palpitations. DISCHARGE MEDICATIONS: Please see below. ALLERGIES: Please see below. PHYSICAL EXAMINATION ON DISCHARGE: VITAL SIGNS: Please see below. GENERAL: A&OX3, not in acute distress HEENT: Head normocephalic, atruamtic, no conjunctiva injection; no scleral icterus. NECK: neck supple CARDIOVASCULAR EXAMINATION: RRR, no murmur, normal S1 and S2 RESPIRATORY EXAMINATION: CTA b/l, no rales, wheezing, or rhonchi. NO subcostal retraction/nasal flaring noted ABDOMINAL EXAMINATION: soft, no guarding/distention. Bowel sound aus in all 4 quad; no tenderness in all 4 quad EXTREMITIES: radial pulse equal b/l; no edema/swelling noted in b/l lower extremities SKIN: Epidermoid cyst noted in left cheek NEUROLOGICAL EXAMINATION: Memory and cognitive fxn grossly intact PSYCHIATRIC EXAMINATION: mild flat affect however mood appears grossly appro. to situation LABORATORY DATA: Please see below. IMAGING: CXR showed diffuse interstitial coarsening with b/l pleural effusion. CT showed improving b/l pleural effusion with infiltration resolved PROGNOSIS: Good ACTIVITY: [As tolerated]. DIET: 2g Na diet DISCHARGE PLAN AND INSTRUCTIONS: 1. remain compliant with treatment plan and medications 2. follow up with PCP within 7 days 3. Return to the ER if you experience any problems ITEMS TO FOLLOWUP ON ON OUTPATIENT: 1. Hyponatremia 2. BRUCE 3. Hx of hematuria 4. Epidermoid cyst 5. CHF 6. A. fib medications DISCHARGE CONDITION: [Stable]. TIME SPENT ON DISCHARGE: Greater than 30 minutes. Vital Signs/I&Os Vital Signs Date Time Temp Pulse Resp B/P (MAP) Pulse Ox O2 Delivery O2 Flow Rate FiO2 05/01/19 12:01 97.2 62 18 147/70 (95) 98 05/01/19 04:00 2.0 04/26/19 02:49 Nasal Cannula I&O- Last 24 Hours up to 6 AM 05/01/19 06:00 Intake Total 1600 ml Output Total 1100 ml Balance 500 ml Laboratory Data Labs 24H Laboratory Tests 2 05/01/19 05:20: Nucleated Red Blood Cells % (auto) 0.0, Anion Gap 4L, Glomerular Filtration Rate 34.9, Blood Urea Nitrogen 41H, Creatinine 1.52H, Sodium Level 130L, Potassium Level 4.0, Chloride Level 99, Carbon Dioxide Level 27, Calcium Level 8.0L CBC/BMP Laboratory Tests 05/01/19 05:20 Red Blood Count 3.85 L, Mean Corpuscular Volume 90.1, Mean Corpuscular Hemoglobin 30.6, Mean Corpuscular Hemoglobin Concent 34.0, Red Cell Distribution Width 14.6 H, Calcium Level 8.0 L Microbiology Microbiology 04/25/19 Blood Culture - Final, Complete NO GROWTH AFTER 5 DAYS 04/25/19 Blood Culture - Final, Complete NO GROWTH AFTER 5 DAYS 04/26/19 Respiratory Virus Panel (PCR) (LUPILLO) - Final, Complete 04/25/19 Urine Culture - Final, Complete Discharge Medications Scheduled Amiodarone HCl (Amiodarone HCl) 200 Mg Tablet, 200 MG PO BID, (Reported) Atorvastatin Calcium (Atorvastatin Calcium) 40 Mg Tablet, 40 MG PO QHS, (Reported) Cefdinir (Cefdinir) 300 Mg Capsule, 300 MG PO DAILY Hydralazine HCl (Hydralazine HCl) 50 Mg Tablet, 50 MG PO TID, (Reported) 0700, 1200, 1700 Isosorbide Dinitrate (Isosorbide Dinitrate) 30 Mg Tablet, 30 MG PO TID, (Reported) 0700, 1200, 1700 Allergies Coded Allergies: No Known Allergies (Unverified , 04/08/19) GME ATTESTATION GME ATTESTATION My faculty preceptor for this patient encounter was physically present during the encounter and was fully available. All aspects of the patient interview, examination, medical decision making process, and medical care plan development were reviewed and approved by the faculty preceptor. The faculty preceptor is aware and concurs with the plan as stated in the body of this note and will attest to such by his/her cosignature. ATTENDING NOTE I, Mg Lambert, have independently examined this patient and performed my own physical exam, as well as reviewed the documentation and edited where necessary. I have discussed in detail with the resident / student the findings and plan of treatment as documented by the resident / student and edited their note. I agree with their findings and treatment plan and have edited their documentation. I will continue to follow the patient during this hospital stay. Time spent on discharge 35 minutes NIKO CAZARES DO May 01, 2019 13:09 MG LAMBERT MD May 01, 2019 15:21
== END 2019-05-01 13:52 | disposition home or self-care (01) | DRG 291 ==
LOC: M ED 20:30 → M ED INP 04-26 00:53 → M ICU 04-26 03:05 → M PCU 04-26 19:50
PROVIDERS: ADMIT Internal Medicine; ATTEND Internal Medicine
DX: I13.0 Hypertensive heart and chronic kidney disease with heart failure and stage 1 through stage 4 chronic kidney disease, or unspecified chronic kidney disease (principal); I50.23 Acute on chronic systolic (congestive) heart failure; J18.9 Pneumonia, unspecified organism; E87.1 Hypo-osmolality and hyponatremia; N17.9 Acute kidney failure, unspecified; I48.0 Paroxysmal atrial fibrillation; N18.3 Chronic kidney disease, stage 3 (moderate); E78.5 Hyperlipidemia, unspecified; I16.0 Hypertensive urgency; Z85.3 Personal history of malignant neoplasm of breast; Z90.13 Acquired absence of bilateral breasts and nipples; Z92.21 Personal history of antineoplastic chemotherapy; Z87.891 Personal history of nicotine dependence; Z79.899 Other long term (current) drug therapy

== ENCOUNTER 2019-05-05 09:59 | Inpatient (IN) | payer MEDICARE ==
[~2019-05-05] VITALS: Ht 160 cm; Wt 60.0 kg
[~2019-05-05 09:59] MED LIST changes: +CEFD300CAP PO
--- NOTE | 2019-05-05 10:48 | REP ---
Clinical: Cough and dyspnea. Technique: Portable AP view of the chest. Comparison: 04/25/2019. Findings: Mediastinum and cardiac silhouette are stable with cardiomegaly again noted. Lung patel demonstrate chronic COPD/emphysematous changes and scattered scarring. Superimposed bibasilar infiltrates (right greater than left) and small pleural effusions are suggested. No pneumothorax. Skeletal structures stable. Impression: Chronic changes with superimposed bibasilar infiltrates and pleural effusions (right greater than left). Electronically Signed by Eduardo Menjivar MD 05/05/2019 10:39 A
[2019-05-05 10:51] LABS: BASO % 0.1 % (0.0-1.0); EOS # 0.3 10^3/uL (0.0-0.5); EOS % 2.8 % (0.0-3.0); HEMATOCRIT 34.8 % (36.0-47.0); HEMOGLOBIN 11.9 g/dl (12.0-15.5); LYMPH # 0.4 10^3/uL (1.5-5.0); LYMPH % 4.1 % (24.0-44.0); MEAN CORPUSCULAR HEMOGLOBIN 31.5 pg (27.0-33.0); MEAN CORPUSCULAR HGB CONC 34.2 g/dl (32.0-36.5); MEAN CORPUSCULAR VOLUME 92.1 fl (80.0-96.0); MONO # 0.5 10^3/uL (0.0-0.8); MONO % 5.5 % (0.0-5.0); NEUTROPHILS # 8.4 10^3/uL (1.5-8.5); NEUTROPHILS % 86.4 % (36.0-66.0); PLATELET COUNT, AUTOMATED 208 10^3/uL (150-450); RED BLOOD COUNT 3.78 10^6/uL (4.00-5.40); WHITE BLOOD COUNT 9.7 10^3/uL (4.0-10.0)
[2019-05-05 11:03] LABS: INR 1.09; PROTHROMBIN TIME 13.8 SECONDS (11.8-14.0)
[2019-05-05 11:36] LABS: ALBUMIN 2.3 GM/DL (3.2-5.2); ALT/SGPT 77 U/L (12-78); BILIRUBIN,DIRECT 0.2 MG/DL (0.0-0.2); BILIRUBIN,TOTAL 0.6 MG/DL (0.2-1.0); BLOOD UREA NITROGEN 35 MG/DL (7-18); CALCIUM LEVEL 8.2 MG/DL (8.8-10.2); CARBON DIOXIDE LEVEL 24 MEQ/L (21-32); CHLORIDE LEVEL 96 MEQ/L (98-107); CK-MB VALUE MASS 1.7 NG/ML (<3.6); CPK CREATINE PHOSPHOKINASE 20 U/L (26-192); CREATININE FOR GFR 1.66 MG/DL (0.55-1.30); GLOMERULAR FILTRATION RATE 31.5 (>32); GLUCOSE, FASTING 118 MG/DL (70-100); NT-PRO BNP 46668 PG/ML (<450); POTASSIUM SERUM 3.9 MEQ/L (3.5-5.1); SODIUM LEVEL 129 MEQ/L (136-145); THYROXINE (T4) 9.4 UG/DL (4.5-12.0); TOTAL PROTEIN 6.7 GM/DL (6.4-8.2); TROPONIN I < 0.02 NG/ML (< 0.10)
[2019-05-05] MEDS ORDERED: **hydrALAZINE** 50 MG TAB PO SCH (12:00)
[2019-05-05] MEDS ORDERED: ACETAMINOPHEN TAB 650MG DOSE (2X325MG) PO PRN (13:00)
[2019-05-05] MEDS ORDERED: FUROSEMIDE 40 MG/4 ML VIAL (J1940) IV ONE (13:45)
[2019-05-05 14:17] VITALS: BP 140/65
[2019-05-05] MEDS: FUROSEMIDE 40 MG/4 ML VIAL (J1940) IV SCH ×2 (14:23→20:41)
[2019-05-05] MEDS: ISOSORBIDE DIN. (ISORDIL) 30 MG TAB PO SCH ×2 (14:23→17:21)
--- NOTE | 2019-05-05 14:23 | ECGEPIP ---
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
--- NOTE | 2019-05-05 14:31 | HPEPDOC ---
[facility] Medical History & Physical Date of Admission May 05, 2019 Date of Service: May 05, 2019 History and Physical CHIEF COMPLAINT: LE swelling, BERNAL HISTORY OF PRESENT ILLNESS: Patient is an 84-year-old female with recent diagnosis of Afib, HFrEF 35%, and CKD presented to the ER with complaints of worsening LE edema and labored breathing on exertion. She is visiting from [place] and was previously healthy until recently had been hospitalized about 3 times since then finding out that she has all these medical problems. She states that she comes to the hospital with concern that her legs have been swelling more along with hypotension and tachycardia. However, BP that she checked at home was only down to 110 and HR up to 90s. She currently is comfortable and denies any complaints including chest pain, SOB, fever, chills. 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 Denies illicit drug use. FAMILY HISTORY: Father CAD Mother with breast cancer ALLERGIES: Please see below. REVIEW OF SYSTEMS: 10 point review of system negative except as stated in HPI HOME MEDICATIONS: Please see below. PHYSICAL EXAMINATION: General: No acute distress, Alert Eyes: Normal sclera, EOMI, CHU HENT: Atraumatic, neck supple, moist mucous membranes Cardiovascular: Normal rate, irregular Pulmonary: Crackles b/l bases. GI: Soft, nontender, nondistended Skin: Warm and dry Neuro: CN grossly intact. No focal deficits. Strengths equal b/l. Psych: oriented x 3 LABORATORY DATA: See below. IMAGING: CXR- Impression: Chronic changes with superimposed bibasilar infiltrates and pleural effusions (right greater than left). MICROBIOLOGY: Please see below. ASSESSMENT AND PLAN: 1. HFrEF 35% - LE swelling, bibasilar crackles/pleural effusions, although no noticable SOB at rest. - c/w Lasix 40 mg IV BID at this time, hold BP med Hydralazine. - I/O, daily weights, Fluid restriction. 2. Afib - rate <100 at this time, c/w amiodarone. - not on AC 2/2 history of hematuria pending outpatient workup. 3. HTN? - patient not aware of this, on hydralazine at home but BP borderline low. - Hold hydralazine for now. 4. HLD - Resume home med 5. Infiltrate on CXR - no clinical signs of PNA, no leukocytosis or fevers. - Likely more congestion than infiltrate. Patient is high risk given reduced EF HF requiring IV diuresis. Vital Signs Vital Signs Date Time Temp Pulse Resp B/P (MAP) Pulse Ox O2 Delivery O2 Flow Rate FiO2 05/05/19 13:45 97 98 05/05/19 13:44 97.3 18 133/60 (84) Room Air Laboratory Data Labs 24H Laboratory Tests 2 05/05/19 10:30: Immature Granulocyte % (Auto) 1.1, White Blood Count 9.7, Red Blood Count 3.78L, Hemoglobin 11.9L, Hematocrit 34.8L, Mean Corpuscular Volume 92.1, Mean Corpuscular Hemoglobin 31.5, Mean Corpuscular Hemoglobin Concent 34.2, Red Cell Distribution Width 15.4H, Platelet Count 208, Neutrophils (%) (Auto) 86.4H, Lymphocytes (%) (Auto) 4.1L, Monocytes (%) (Auto) 5.5H, Eosinophils (%) (Auto) 2.8, Basophils (%) (Auto) 0.1, Neutrophils # (Auto) 8.4, Lymphocytes # (Auto) 0.4L, Monocytes # (Auto) 0.5, Eosinophils # (Auto) 0.3, Basophils # (Auto) 0.0, Nucleated Red Blood Cells % (auto) 0.0, Prothrombin Time 13.8, Prothromb Time International Ratio 1.09, Anion Gap 9, Glomerular Filtration Rate 31.5L, Calcium Level 8.2L, Aspartate Amino Transf (AST/SGOT) 32, Alanine Aminotransferase (ALT/SGPT) 77, Alkaline Phosphatase 194H, Total Bilirubin 0.6, Direct Bilirubin 0.2, Total Creatine Kinase 20L, Creatine Kinase MB 1.7, Creatine Kinase MB Relative Index 8.50H, Troponin I < 0.02, FT-Wct-S-Type Natriuretic Peptide 33670F, Total Protein 6.7, Albumin 2.3L, Albumin/Globulin Ratio 0.52L, Thyroid Stimulating Hormone (TSH) 8.930H, Thyroxine (T4) 9.4 05/05/19 10:39: Lactic Acid Level 1.6 CBC/BMP Laboratory Tests 05/05/19 10:30 Red Blood Count 3.78 L, Mean Corpuscular Volume 92.1, Mean Corpuscular Hem oglobin 31.5, Mean Corpuscular Hemoglobin Concent 34.2, Red Cell Distribution Width 15.4 H, Neutrophils (%) (Auto) 86.4 H, Lymphocytes (%) (Auto) 4.1 L, Monocytes (%) (Auto) 5.5 H, Eosinophils (%) (Auto) 2.8, Basophils (%) (Auto) 0.1, Neutrophils # (Auto) 8.4, Lymphocytes # (Auto) 0.4 L, Monocytes # (Auto) 0.5, Eosinophils # (Auto) 0.3, Basophils # (Auto) 0.0 Microbiology Microbiology 05/05/19 Blood Culture, Received Pending 05/05/19 Blood Culture, Received Pending Home Medications Scheduled Amiodarone HCl (Amiodarone HCl) 200 Mg Tablet, 200 MG PO BID Atorvastatin Calcium (Atorvastatin Calcium) 40 Mg Tablet, 40 MG PO QHS Cefdinir (Cefdinir) 300 Mg Capsule, 300 MG PO DAILY Hydralazine HCl (Hydralazine HCl) 50 Mg Tablet, 50 MG PO TID 0700, 1200, 1700 Isosorbide Dinitrate (Isosorbide Dinitrate) 30 Mg Tablet, 30 MG PO TID 0700, 1200, 1700 Allergies Coded Allergies: No Known Allergies (Unverified , 04/08/19) A-FIB/CHADSVASC A-FIB History Current/History of A-Fib/PAF?: Yes Current PO Anticoag Therapy: No LAURA MCCLELLAN MD May 05, 2019 14:31
[2019-05-05 16:00] VITALS: BP 138/63
[2019-05-05 20:00] VITALS: BP 132/93
[2019-05-05] MEDS: AMIODARONE 200 MG TAB (PACERONE) PO SCH (20:41)
[2019-05-05] MEDS: ATORVASTATIN 20 MG TAB PO SCH (20:41)
[2019-05-06] VITALS (7 sets, daily range): BP systolic 125–145; BP diastolic 60–66
[2019-05-06 06:11] LABS: HEMATOCRIT 31.7 % (36.0-47.0); HEMOGLOBIN 10.8 g/dl (12.0-15.5); MEAN CORPUSCULAR HEMOGLOBIN 30.9 pg (27.0-33.0); MEAN CORPUSCULAR HGB CONC 34.1 g/dl (32.0-36.5); MEAN CORPUSCULAR VOLUME 90.8 fl (80.0-96.0); PLATELET COUNT, AUTOMATED 201 10^3/uL (150-450); RED BLOOD COUNT 3.49 10^6/uL (4.00-5.40); WHITE BLOOD COUNT 8.1 10^3/uL (4.0-10.0)
[2019-05-06 06:41] LABS: CALCIUM LEVEL 7.7 MG/DL (8.8-10.2); CREATININE FOR GFR 1.58 MG/DL (0.55-1.30); GLOMERULAR FILTRATION RATE 33.3 (>32); POTASSIUM SERUM 3.9 MEQ/L (3.5-5.1)
[2019-05-06] MEDS: ISOSORBIDE DIN. (ISORDIL) 30 MG TAB PO SCH ×3 (06:56→16:00)
[2019-05-06] MEDS: ENOXAPARIN 30 MG/0.3 ML SYR (J1650) SC SCH (08:09)
[2019-05-06] MEDS: AMIODARONE 200 MG TAB (PACERONE) PO SCH ×2 (08:09→21:35)
[2019-05-06] MEDS: FUROSEMIDE 40 MG/4 ML VIAL (J1940) IV SCH (08:09)
[2019-05-06] MEDS ORDERED: SLF 3 ML SYR IV PRN (10:00)
--- NOTE | 2019-05-06 10:11 | IPNPDOC ---
Date Seen The patient was seen on 05/06/19. Progress Note SUBJECTIVE: Patient appeared comfortable, denying any SOB or other complaints apart from LE swelling. Requested to also be seen by cardiology. No acute events reported overnight. About -1.3 L. OBJECTIVE PHYSICAL EXAMINATION: VITAL SIGNS: Please see below. General: No acute distress, Alert Eyes: Normal sclera, EOMI, CHU HENT: Atraumatic, neck supple, moist mucous membranes Cardiovascular: Normal rate, irregular. 2-3+ LE pitting edema b/l. Pulmonary: Crackles b/l bases. GI: Soft, nontender, nondistended Skin: Warm and dry Neuro: CN grossly intact. No focal deficits. Strengths equal b/l. Psych: oriented x 3 LABORATORY DATA, IMAGING STUDIES, MICROBIOLOGY: Please see below. DVT prophylaxis ordered?: Lovenox ASSESSMENT AND PLAN: 1. HFrEF 35% - LE swelling, bibasilar crackles/pleural effusions, although no noticable SOB at rest. - No significant change in LE swelling. Increased Lasix to 60 IV q8 at this time. - Cardiology consulted, dose may change. - Hydralazine held at this time due to reported hypotension. - Consider reducing dose if/when resumed. - I/O, daily weights, Fluid restriction. 2. Afib - rate <100 at this time, c/w amiodarone. - not on AC 2/2 history of hematuria pending outpatient workup. 3. HTN? - patient not aware of this, on hydralazine at home but BP borderline low. - Hold hydralazine for now. Consider reducing dose when/if resumed. 4. HLD - Resume home med 5. Infiltrate on CXR - no clinical signs of PNA, no leukocytosis or fevers. - Likely more congestion than infiltrate. Patient is high risk given reduced EF HF requiring IV diuresis. VS, I&O, 24H, Fishbone Vital Signs/I&O Vital Signs Date Time Temp Pulse Resp B/P (MAP) Pulse Ox O2 Delivery O2 Flow Rate FiO2 05/06/19 08:00 97.4 103 18 145/65 (91) 95 05/05/19 13:44 Room Air I&O- Last 24 Hours up to 6 AM 05/06/19 05:59 Output Total 1300 ml Balance -1300 ml Laboratory Data 24H LABS Laboratory Tests 2 05/05/19 10:30: Immature Granulocyte % (Auto) 1.1, White Blood Count 9.7, Red Blood Count 3.78L, Hemoglobin 11.9L, Hematocrit 34.8L, Mean Corpuscular Volume 92.1, Mean Corpuscular Hemoglobin 31.5, Mean Corpuscular Hemoglobin Concent 34.2, Red Cell Distribution Width 15.4H, Platelet Count 208, Neutrophils (%) (Auto) 86.4H, Lymphocytes (%) (Auto) 4.1L, Monocytes (%) (Auto) 5.5H, Eosinophils (%) (Auto) 2.8, Basophils (%) (Auto) 0.1, Neutrophils # (Auto) 8.4, Lymphocytes # (Auto) 0.4L, Monocytes # (Auto) 0.5, Eosinophils # (Auto) 0.3, Basophils # (Auto) 0.0, Nucleated Red Blood Cells % (auto) 0.0, Prothrombin Time 13.8, Prothromb Time International Ratio 1.09, Anion Gap 9, Glomerular Filtration Rate 31.5L, Calcium Level 8.2L, Aspartate Amino Transf (AST/SGOT) 32, Alanine Aminotransferase (ALT/SGPT) 77, Alkaline Phosphatase 194H, Total Bilirubin 0.6, Direct Bilirubin 0.2, Total Creatine Kinase 20L, Creatine Kinase MB 1.7, Creatine Kinase MB Relative Index 8.50H, Troponin I < 0.02, JR-Ghb-P-Type Natriuretic Peptide 66711Y, Total Protein 6.7, Albumin 2.3L, Albumin/Globulin Ratio 0.52L, Thyroid Stimulating Hormone (TSH) 8.930H, Thyroxine (T4) 9.4 05/05/19 10:39: Lactic Acid Level 1.6 05/06/19 05:37: Nucleated Red Blood Cells % (auto) 0.0, Anion Gap 9, Glomerular Filtration Rate 33.3, Calcium Level 7.7L, Blood Urea Nitrogen 37H, Creatinine 1.58H, Sodium L evel 131L, Potassium Level 3.9, Chloride Level 99, Carbon Dioxide Level 23 CBC/BMP Laboratory Tests 05/05/19 10:30 Red Blood Count 3.78 L, Mean Corpuscular Volume 92.1, Mean Corpuscular Hemoglobin 31.5, Mean Corpuscular Hemoglobin Concent 34.2, Red Cell Distribution Width 15.4 H, Neutrophils (%) (Auto) 86.4 H, Lymphocytes (%) (Auto) 4.1 L, Monocytes (%) (Auto) 5.5 H, Eosinophils (%) (Auto) 2.8, Basophils (%) (Auto) 0.1, Neutrophils # (Auto) 8.4, Lymphocytes # (Auto) 0.4 L, Monocytes # (Auto) 0.5, Eosinophils # (Auto) 0.3, Basophils # (Auto) 0.0 05/06/19 05:37 Red Blood Count 3.49 L, Mean Corpuscular Volume 90.8, Mean Corpuscular Hemoglobin 30.9, Mean Corpuscular Hemoglobin Concent 34.1, Red Cell Distribution Width 15.3 H, Calcium Level 7.7 L Microbiology Microbiology 05/05/19 Blood Culture, Received Pending 05/05/19 Blood Culture, Received Pending LAURA MCCLELLAN MD May 06, 2019 10:11
[2019-05-06] MEDS: METOPROLOL SUCC (TopROL XL) 50MG **XL** TAB PO SCH (13:17)
[2019-05-06] MEDS: SLF 3 ML SYR IV SCH ×2 (13:17→21:35)
--- NOTE | 2019-05-06 14:55 | CR ---
DATE OF CONSULTATION: 05/06/2019 REFERRING PHYSICIAN: Dr. Eric Connors REASON FOR CONSULTATION: Acute on chronic systolic and diastolic heart failure. HISTORY OF PRESENT ILLNESS: Joaquina Denney is an 84-year-old woman with persistent atrial fibrillation, dilated cardiomyopathy, chronic systolic and diastolic heart failure who has now had this being her third admission for acute decompensated heart failure. She was placed on amiodarone and this has helped promote the occurrence of sinus rhythm. When in atrial fibrillation she had rapid ventricular response. Echocardiogram Doppler 04/09/2019 reported normal left ventricle size with mild increased LV wall thickness and moderate depressed LV systolic function with mild to moderate global hypokinesis and more hypokinesis noted at the level of the septum. Estimated LVEF 35-40%. Mildly enlarged left atrium. Mildly enlarged right atrium. Normal right ventricle. Small pericardial effusion. Pleural effusion. Mild calcified aortic valve with normal leaflet excursion. Mildly calcified mitral annulus with normal leaflet motion. Normal tricuspid valve. Normal pulmonic valve. Borderline IVC enlargement. No aortic stenosis or regurgitation. Moderately-severe mitral regurgitation. Moderate tricuspid regurgitation suggestive of severe pulmonary hypertension. Dilated right atrium. Patient presented to the emergency room yesterday (05/05/2019) with a 1 day history of exertional dyspnea with low levels of activity. Since recent discharge from the hospital she has noticed increased bilateral edema in both legs. No orthopnea or PND. No chest pain, pressure, tightness or squeezing with or without activity. No presyncope or syncope. No palpitations. During the 24 hours prior to her presentation she noticed her blood pressure was decreased and she was having rapid pulse. No embolic events. No intermittent claudication. OTHER PAST MEDICAL AND SURGICAL HISTORY: Obstructive uropathy with right hydroureteronephrosis, left renal artery stenosis, stenosis within the proximal abdominal aorta, dilated cardiomyopathy with systolic heart failure as noted above. 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 SOCIAL HISTORY: Prior smoking history. Social alcohol. No illicit drug use. FAMILY HISTORY: Father had CD, mother had breast cancer. 12 point review of systems is negative other than those listed in the HPI and past medial history above. No known adverse drug reactions. MEDICATIONS PRIOR TO ADMISSION: Amiodarone 200 mg twice a day, atorvastatin 40 mg at bedtime, cefdinir 300 mg by mouth daily times five days, hydralazine 50 mg twice a day, isosorbide dinitrate 30 mg three times a day. CURRENT MEDICATION IN HOSPITAL: Furosemide 60 mg IV every 8 hours, Lovenox 30 mg subcu daily, amiodarone 200 mg by mouth twice a day, atorvastatin 40 mg at bedtime, acetaminophen 650 mg every 4 hours as needed, isosorbide dinitrate 30 mg three times a day. PHYSICAL EXAMINATION: Mildly overweight elderly woman who appears her current age with no respiratory or psychological distress. Height 63 inches. Weight 66 kg, BMI 25.8. Temperature 96.6, pulse 106 (irregularly irregular), respiratory rate 18, blood pressure 134/60, oxygen saturation 96% on room air. No conjunctive pallor, sclera or icterus. Multiple missing teeth and some dental fillings. Oral mucosa was moist and without pallor or stenosis. Jugular venous pulsations were at 20 cm to the angle of the jaw with the patient sitting up at 90 degrees. Trachea is midline. No palpable thyroid. No clubbing or cyanosis. No skin pallor or icterus. Oriented to person, place and time. Mood and affect appropriate. No curvature of the spine. Gait not tested at this time as patient is on bedrest. Gross motor strength and tone. Respiratory expansion effort was good. A few faint bibasilar crackles were present. No wheezes. Status-post bilateral mastectomies. First and second heart sounds are variable in intensity. No S3. Grade 1-2 pansystolic murmur at the apex and over the lower left heart sternal border. No diastolic murmurs appreciated. Carotids are normal in volume and contour and without bruits. No palpable abdominal aorta. No bone bruise. Femoral pulses 1+-2. Pedal pulses 1+-2. 3 mm of pitting edema is present at mid and distal tibia bilaterally. No varicose veins. Abdomen was soft and nontender with normal bowel sounds. No hepatosplenomegaly or organomegaly. Stool for occult blood not presently indicated. INVESTIGATIONS: I have independently visualized the patient's portable AP sitting chest x-ray acquired 05/05/2012 at 10:28 am. It shows small bilateral pleural effusions right greater than left. Cardiomegaly despite the portable technique. Calcification in the aortic arch. Increased in interstitial markings. Fluid in the right minor fissure. Borderline for pulmonary vascular redistribution. Surgical clips in the right axilla region. Electrocardiogram 05/05/2019 shows atrial fibrillation with rapid ventricular response, heart rate 104 BPM, nonspecific ST-T abnormalities, probable left ventricular hypertrophy. LAB WORK: 05/06/2019 was reviewed: Hemoglobin 10.8, hematocrit 31.7, platelets 201, PT/INR 1.09, sodium 131, potassium 3.9, chloride 99, CO2 23, BUN 37, creatinine 1.58, estimated GFR 33.3, glucose 89. Lab work 05/05/2019 was reviewed: Troponin I less than 0.02, NT proBNP 46,668, albumin 2.3, TSH 8.930, T4 normal at 9.4. ASSESSMENT AND RECOMMENDATIONS; 1. Heart failure (acute on chronic, systolic and diastolic). This patient's heart failure is due to dilated cardiomyopathy. The etiology of this patient's dilated cardiomyopathy is not known with certainty at this time, however differential diagnosis would include tachycardia, mediated cardiomyopathy, familial cardiomyopathy, idiopathic dilated cardiomyopathy and ischemic cardiomyopathy. The most likely etiology is the ischemic cardiomyopathy and or tachycardia, cardiomyopathy. At present she is NYHA functional class 3 and she is decompensated on examination. She is not a candidate for FLYNN inhibitors, ARB's or Entresol because of artery stenosis and chronic kidney disease stage 3B. I agree with long acting nitrates. I would like to restart at least some of the hydralazine. I would like to get her back on a beta-marcelino as well. I agree with IV furosemide. Recommend a 1500 oral fluid restriction because of hyponatremia. 2. Dilated cardiomyopathy. 3. Persistent atrial fibrillation. Patient is in atrial fibrillation with a rapid ventricular response. I will restart a betablocker. Continue with amiodarone. On a previous admission recently she was having hematuria and was therefore taken off of Eliquis. According to a progress note from Dr. Jeyson Miller, she is supposed to be referred to Dr. Quigley for consideration of placement of a watchman device. 4. Non-rheumatic mitral valve regurgitation (moderately-severe). Likely secondary to dilated cardiomyopathy. I recommend at least introducing some hydralazine. 5. Unilateral renal artery stenosis on the left side. She has previously been seen by Dr. Weeks of the vascular surgery service. She is also seen by Dr. Ila. It appears that she will be treated with medical therapy for this condition. Again recommend avoidance of FLYNN inhibitors or ARB's. 6. Systemic hypertension. Blood pressure presently controlled. Continue isosorbide dinitrate. I will introduce a small dose of hydralazine. Continue IV fluids at the current dosage. I will introduce a betablocker. 7. Hyperlipidemia. Continue with intensive statin therapeutic atorvastatin 40 mg daily, 8. Abnormal ECG. ECG as described above.
[2019-05-06] MEDS: FUROSEMIDE 100 MG/10 ML VIAL (J1940) IV SCH (16:01)
[2019-05-06] MEDS: **hydrALAZINE** 10 MG TAB PO SCH ×2 (16:01→21:34)
[2019-05-06] MEDS: ATORVASTATIN 20 MG TAB PO SCH (21:34)
[2019-05-07] MEDS: FUROSEMIDE 100 MG/10 ML VIAL (J1940) IV SCH ×2 (00:16→08:51)
[2019-05-07 04:00] VITALS: BP 133/67
[2019-05-07 05:57] LABS: HEMATOCRIT 32.7 % (36.0-47.0); HEMOGLOBIN 11.3 g/dl (12.0-15.5); MEAN CORPUSCULAR HEMOGLOBIN 31.4 pg (27.0-33.0); MEAN CORPUSCULAR HGB CONC 34.6 g/dl (32.0-36.5); MEAN CORPUSCULAR VOLUME 90.8 fl (80.0-96.0); PLATELET COUNT, AUTOMATED 219 10^3/uL (150-450); WHITE BLOOD COUNT 8.3 10^3/uL (4.0-10.0)
[2019-05-07 06:16] LABS: CREATININE FOR GFR 1.57 MG/DL (0.55-1.30); GLOMERULAR FILTRATION RATE 33.6 (>32); POTASSIUM SERUM 3.5 MEQ/L (3.5-5.1)
[2019-05-07] MEDS: SLF 3 ML SYR IV SCH ×4 (06:53→21:52)
[2019-05-07] MEDS: ISOSORBIDE DIN. (ISORDIL) 30 MG TAB PO SCH ×3 (06:53→16:33)
[2019-05-07 08:00] VITALS: BP 132/58
[2019-05-07] MEDS: AMIODARONE 200 MG TAB (PACERONE) PO SCH (08:51)
[2019-05-07] MEDS: **hydrALAZINE** 10 MG TAB PO SCH ×3 (08:51→20:12)
[2019-05-07] MEDS: METOPROLOL SUCC (TopROL XL) 50MG **XL** TAB PO SCH (08:52)
[2019-05-07] MEDS: ENOXAPARIN 30 MG/0.3 ML SYR (J1650) SC SCH (08:52)
[2019-05-07 12:00] VITALS: BP 123/70
[2019-05-07] MEDS: FUROSEMIDE injection 250 MG in D5W 225 ML IV SCH (12:36)
[2019-05-07] MEDS: SPIRONOLACTONE 12.5MG PER 1/2 TABLET PO SCH (16:34)
--- NOTE | 2019-05-07 16:55 | IPN ---
DATE: 05/07/2019 TIME: 4:05 p.m. CARDIOLOGY PROGRESS NOTE SUBJECTIVE: Patient reports absence of any dyspnea at rest. She has some dyspnea with low levels of activity in the room. No orthopnea or paroxysmal nocturnal dyspnea (PND). She reports the swelling in her legs has become less, but she still has ongoing swelling in both legs. Overall she finds that she is doing much better in that regard. No dizziness or lightheadedness. No chest pain or chest discomfort. PHYSICAL EXAMINATION: Temperature 97.4, pulse 82 (irregular), respiratory rate 17, blood pressure 127/70, oxygen saturation 99%, weight 65.7 kilograms, which is down 0.3 kilograms from the weight recorded yesterday. Input/output since 24 hours of 05/06/2019 showed the patient to be net negative 345 mL. Jugular venous pulsations were to the angle of the jaw with the patient sitting up at 90 degrees. Bibasilar crackles were present. No wheezes. First and second heart sounds were variable in intensity. Grade 1 to 2 pansystolic murmur at the apex and lower left parasternal border. 5 mm of pitting edema was present at mid tibial level bilaterally. Abdomen was soft and nontender with normal bowel sounds. Laboratory work 05/07/2019 showed sodium 133, potassium 3.5, chloride 100, CO2 26, BUN 37, creatinine 1.57, estimated GFR 33.6, glucose 96, calcium 8.0. ASSESSMENT AND PLAN: 1. Heart failure (acute on chronic), systolic and diastolic. Patient is showing improvement, but she remains significantly decompensated. Currently [place] Heart [employer] (NYHA) functional class III. Once the patient is stable and compensated and an outpatient, if she wishes, I can refer her to Dr. Randy Stewart at [facility] for consideration of possible mitral valve clip plus/minus tricuspid valve clip. I have switched her to continuous drip of furosemide IV 10 mg per hour. Continue hydralazine 10 mg three times a day and isosorbide mononitrate 30 mg three times a day. Continue metoprolol succinate 50 mg daily. I will try adding a low dose of spironolactone beginning at 12.5 mg daily. 2. Dilated cardiomyopathy. As per heart failure category above. At some point, the patient should undergo cardiac catheterization and that can wait until she is stable outpatient and can be done in [place] as well. 3. Persistent atrial fibrillation. Heart rate now controlled on amiodarone 200 mg twice a day and metoprolol succinate 50 mg daily. I will decrease amiodarone down to 200 mg once daily as her maintenance dose. 4. Non-rheumatic mitral valve regurgitation with moderately-severe mitral regurgitation. MitraClip was discussed with the patient. Patient wants to think about this. At the moment, she is not too keen on doing that. I explained to her that this could be done by a highly experienced dextrine mixer, Dr. Randy Stewart, at [facility]. The patient wants to think about this more. 5. Unilateral renal artery stenosis. Stable. No angiotensin-converting enzyme (FLYNN) inhibitor or ARB. 6. Systemic hypertension. Blood pressure controlled. Patient is on IV furosemide, oral hydralazine and isosorbide dinitrate and metoprolol succinate. Continue the same. As mentioned above, I will add a low dose of spironolactone. 7. Hyperlipidemia. Patient is on a Dietary Approaches to Stop Hypertension (DASH) diet. Continue intensive statin therapy with atorvastatin 40 mg nightly. 8. Abnormal ECG. Stable. One additional thing with regards to persistent atrial fibrillation: I did explain to the patient that in order for her to qualify for a Watchman left atrial occluder device, she needs to be able to tolerate being on anticoagulation for at least 6 weeks. There is one other possibility and that would be for her to be enrolled in a research trial looking at performing Watchman left atrial appendage closure devices in people who cannot be on anticoagulation. Again, this would be something that could be done from a research standpoint, perhaps in [place].
--- NOTE | 2019-05-07 19:50 | IPNPDOC ---
Text Note Date of Service The patient was seen on 05/07/19. NOTE Ms. Denney remains a challenge with regard to management of her atrial fibrill ation and acute on chronic systolic congestive heart failure. Her rate is controlled. However, she states she does not feel she is diuresing as well as she should. However, she is also concerned about her renal function. She is not on anticoagulation for her atrial fibrillation due to a prior bleeding episode. OBJECTIVE: Please see below for vital signs. HENT: Neck is supple with no adenopathy or thyromegaly, oral mucosa is moist, she does not exhibit remarkable pallor. Cardiovascular: exam shows a fairly regular rate and rhythm with a normal S1 and S2. No appreciable murmur Respiratory: Patient clearly has bibasilar rales, she does not have much cough. Abdomen: soft, mild central obesity, relative to her overall body habitus, nontender, bowel tones are present, no abdominal wall or flank edema. Extremities: Patient continues to exhibit at least 2+ pitting edema to her feet, ankles and legs; this does not extend up her thighs, pedal pulses are palpable. Neuro: There is otherwise no focal neuromotor or sensory deficit on exam ASSESSMENT/PLAN: 1. Atrial fibrillation. Rate appears to be controlled; it is generally 70-80. Again, there is currently no anticoagulation due to a bleeding episode. 2. Acute on chronic systolic congestive heart failure. Patient has an ejection fraction of 30-35%. She reports that she has valvular heart disease as well. She appears to have maximized her response to Lasix. Will defer to cardiology as to whether they wish to add an additional agent such as milrinone. Increasing her Lasix may contribute to worsening renal function. 3. Patient does have chronic kidney disease stage III. More aggressive diuresis may exacerbate it. VS,Fishbone, I+O VS, Fishbone, I+O Laboratory Tests 05/07/19 05:46 Red Blood Count 3.60 L, Mean Corpuscular Volume 90.8, Mean Corpuscular Hemoglobin 31.4, Mean Corpuscular Hemoglobin Concent 34.6, Red Cell Distribution Width 15.2 H, Calcium Level 8.0 L Vital Signs Date Time Temp Pulse Resp B/P (MAP) Pulse Ox O2 Delivery O2 Flow Rate FiO2 05/07/19 16:33 133/60 05/07/19 12:00 97.4 82 17 99 05/05/19 13:44 Room Air I&O- Last 24 Hours up to 6 AM 05/07/19 06:00 Intake Total 780 ml Output Total 1800 ml Balance -1020 ml LATOSHA DOVER MD May 07, 2019 19:50
[2019-05-07 20:00] VITALS: BP 109/58
[2019-05-07] MEDS: ATORVASTATIN 20 MG TAB PO SCH (20:12)
[2019-05-07 23:59] VITALS: BP 138/68
[2019-05-08 04:00] VITALS: BP 138/68
[2019-05-08] MEDS: SLF 3 ML SYR IV SCH ×4 (06:01→22:00)
[2019-05-08] MEDS: ISOSORBIDE DIN. (ISORDIL) 30 MG TAB PO SCH ×3 (07:18→16:29)
[2019-05-08 08:00] VITALS: BP 138/62
[2019-05-08] MEDS: SPIRONOLACTONE 12.5MG PER 1/2 TABLET PO SCH (08:18)
[2019-05-08] MEDS: METOPROLOL SUCC (TopROL XL) 50MG **XL** TAB PO SCH (08:18)
[2019-05-08] MEDS: AMIODARONE 200 MG TAB (PACERONE) PO SCH (08:18)
[2019-05-08] MEDS: ENOXAPARIN 30 MG/0.3 ML SYR (J1650) SC SCH (08:18)
[2019-05-08] MEDS: **hydrALAZINE** 10 MG TAB PO SCH ×3 (08:19→20:56)
[2019-05-08 08:50] LABS: HEMATOCRIT 35.5 % (36.0-47.0); HEMOGLOBIN 12.1 g/dl (12.0-15.5); MEAN CORPUSCULAR HEMOGLOBIN 30.9 pg (27.0-33.0); MEAN CORPUSCULAR HGB CONC 34.1 g/dl (32.0-36.5); MEAN CORPUSCULAR VOLUME 90.6 fl (80.0-96.0); PLATELET COUNT, AUTOMATED 251 10^3/uL (150-450); RED BLOOD COUNT 3.92 10^6/uL (4.00-5.40); WHITE BLOOD COUNT 8.4 10^3/uL (4.0-10.0)
[2019-05-08 09:12] LABS: CALCIUM LEVEL 7.7 MG/DL (8.8-10.2); CREATININE FOR GFR 1.57 MG/DL (0.55-1.30); GLOMERULAR FILTRATION RATE 33.6 (>32); POTASSIUM SERUM 3.3 MEQ/L (3.5-5.1)
[2019-05-08] MEDS: FUROSEMIDE injection 250 MG in D5W 225 ML IV SCH (11:15)
[2019-05-08 12:00] VITALS: BP 144/67
[2019-05-08 16:00] VITALS: BP 134/65
--- NOTE | 2019-05-08 17:38 | IPNPDOC ---
Text Note Date of Service The patient was seen on 05/08/19. NOTE Ms. Denney has chronic atrial fibrillation and acute on chronic systolic conge stive heart failure. She also has valvular heart disease. She is feeling better today and is anxious to return to her home in [place]. Objective: Please see below for vital signs HENT: Neck is supple with no adenopathy or thyromegaly, oral mucosa is moist, she does not exhibit remarkable pallor. Cardiovascular: exam shows a fairly regular rate and rhythm with a normal S1 and S2. No appreciable murmur Respiratory: Patient has decreased bibasilar rales, she does not have much cough. Abdomen: soft, mild central obesity, relative to her overall body habitus, nontender, bowel tones are present, no abdominal wall or flank edema. Extremities: Patient has visibly decreased pitting edema to her feet, ankles and legs, pedal pulses are palpable. Neuro: There is otherwise no focal neuromotor or sensory deficit on exam ASSESSMENT/PLAN: 1. Atrial fibrillation. Rate remains controlled on her current regimen. She is not on chronic anticoagulation due to a bleeding episode in the form of hematuria. 2. Acute on chronic systolic congestive heart failure. Patient has ejection fraction of 30-35%. She has shown some improvement to her peripheral edema and interstitial edema with her current diuresis regimen. This current regimen can be maintained until she reaches home. Her renal function remains stable. 3. Chronic kidney disease stage III. She appears to be tolerating her current diuresis regimen without worsening renal function. 4. Valvular heart disease. Patient has poor function of both mitral and aortic valves. Clipping procedure has been suggested with referral to [facility]. Patient [facility] [place]. VS,Fishbone, I+O VS, Fishbone, I+O Laboratory Tests 05/08/19 08:33 Red Blood Count 3.92 L, Mean Corpuscular Volume 90.6, Mean Corpuscular Hemoglobin 30.9, Mean Corpuscular Hemoglobin Concent 34.1, Red Cell Distribution Width 15.3 H 05/08/19 08:34 Calcium Level 7.7 L Vital Signs Date Time Temp Pulse Resp B/P (MAP) Pulse Ox O2 Delivery O2 Flow Rate FiO2 05/08/19 16:30 134/65 05/08/19 16:00 98.0 75 16 96 05/05/19 13:44 Room Air I&O- Last 24 Hours up to 6 AM 05/08/19 06:00 Intake Total 1040 ml Output Total 2375 ml Balance -1335 ml LATOSHA DOVER MD May 08, 2019 17:38
[2019-05-08] MEDS ORDERED: POTASSIUM CHLORIDE 10 MEQ SR TABLET PO ONE ×2 (17:45→18:00)
[2019-05-08] MEDS ORDERED: SPIRONOLACTONE 12.5MG PER 1/2 TABLET PO ONE (18:00)
[2019-05-08 20:00] VITALS: BP 117/62
[2019-05-08] MEDS: ATORVASTATIN 20 MG TAB PO SCH (20:53)
[2019-05-09] VITALS: BP 133/62
[2019-05-09 04:00] VITALS: BP 143/63
[2019-05-09 05:46] LABS: HEMATOCRIT 32.5 % (36.0-47.0); HEMOGLOBIN 11.2 g/dl (12.0-15.5); MEAN CORPUSCULAR HEMOGLOBIN 31.9 pg (27.0-33.0); MEAN CORPUSCULAR HGB CONC 34.5 g/dl (32.0-36.5); MEAN CORPUSCULAR VOLUME 92.6 fl (80.0-96.0); PLATELET COUNT, AUTOMATED 231 10^3/uL (150-450); RED BLOOD COUNT 3.51 10^6/uL (4.00-5.40); WHITE BLOOD COUNT 7.3 10^3/uL (4.0-10.0)
[2019-05-09 06:07] LABS: CALCIUM LEVEL 8.1 MG/DL (8.8-10.2); CREATININE FOR GFR 1.53 MG/DL (0.55-1.30); GLOMERULAR FILTRATION RATE 34.6 (>32); POTASSIUM SERUM 3.7 MEQ/L (3.5-5.1)
[2019-05-09] MEDS: SLF 3 ML SYR IV SCH ×3 (06:12→22:00)
[2019-05-09] MEDS: ISOSORBIDE DIN. (ISORDIL) 30 MG TAB PO SCH ×3 (06:51→16:24)
[2019-05-09 08:27] VITALS: BP 126/59
[2019-05-09] MEDS: AMIODARONE 200 MG TAB (PACERONE) PO SCH (08:45)
[2019-05-09] MEDS: SPIRONOLACTONE 25 MG TAB PO SCH (08:45)
[2019-05-09] MEDS: **hydrALAZINE** 10 MG TAB PO SCH ×3 (08:46→20:39)
[2019-05-09] MEDS: ENOXAPARIN 30 MG/0.3 ML SYR (J1650) SC SCH (08:47)
[2019-05-09] MEDS ORDERED: METOPROLOL SUCC *XL* 25MG TAB (TopROL *XL*) PO SCH (09:00)
[2019-05-09] MEDS: FUROSEMIDE injection 250 MG in D5W 225 ML IV SCH (09:45)
[2019-05-09] MEDS ORDERED: METOPROLOL SUCC *XL* 25MG TAB (TopROL *XL*) PO ONE (16:00)
--- NOTE | 2019-05-09 16:09 | IPN ---
DATE: 05/09/2019 TIME: 3:08 p.m. SUBJECTIVE: Patient reports that she was able to ambulate in the hallways in the progressive care unit without any dyspnea when walking slowly. No orthopnea or paroxysmal nocturnal dyspnea (PND). She notices that she still has a small amount of edema in both legs but reports it is much better. No chest pain or chest discomfort. No dizziness or lightheadedness. No palpitations. Overall she reports feeling well. She tells me that after she gets home from the hospital from this admission she plans to go back to her home in [place] and see her primary care doctor and she plans to establish as soon as possible with a art therapist somewhere in her locale in [place]. She tells me that she spends the [place] in this region but spends most of the year at her home in [place]. PHYSICAL EXAMINATION: Temperature 98.0, pulse 90 (irregular), respiratory rate 18, blood pressure 130/70, oxygen saturation 95%. Jugular venous pulsations were to the angle of the jaw with the patient sitting up at 90 degrees (at least 20 cm). Presence of a CV-wave. First and second heart sounds were variable in intensity. Grade 1 pansystolic murmur at the apex and lower left parasternal border. No S3. Respiratory expansion and effort was good. A few bibasilar crackles were present. No wheezes. Abdomen was soft, nontender with normal bowel sounds. 2-3 mm of pitting edema was present at mid and distal tibial levels bilaterally. Laboratory work 05/09/2019 was reviewed: Sodium 136, potassium 3.7, chloride 99, CO2 29, BUN 31, creatinine 1.53, estimated GFR 34.6, glucose 96, calcium 8.1. ASSESSMENT AND PLAN: 1. Heart failure (acute on chronic, systolic and diastolic). Patient is improving. She still remains decompensated. Currently she is NYHA Functional Class II. Because of unilateral renal artery stenosis and severely reduced kidney function on the prior nuclear medicine kidney function assessment, she is not a candidate for angiotensin-converting enzyme (FLYNN) inhibitor, ARB, or Entresto. She is diuresing very well with continuous IV furosemide 10 mg/hour. Continue furosemide 10 mg/hour IV. Continue isosorbide dinitrate 30 mg three times a day, spironolactone 25 mg daily, and metoprolol succinate 75 mg daily. After discharge from hospital, the patient plans to head back to her home in [place] and to establish with a art therapist in the area that she lives in as soon as possible and to have an office visit with her primary care provider (PCP). 2. Dilated cardiomyopathy. As per heart failure category above. 3. Persistent atrial fibrillation. I think at this point persistence of using amiodarone to try and obtain and maintain sinus rhythm long-term is of very little likelihood given that she has moderately severe tricuspid regurgitation. Therefore, I will discontinue amiodarone. At present, she is not a candidate for warfarin or direct oral anticoagulants because of recent significant gastrointestinal (GI) bleed. In order to qualify for a [employer] Watchman device, she would have to be able to tolerate anticoagulation for at least 6 weeks or, alternatively, would have to be entered into a research study that involved Watchman device placement without anticoagulation and this was explained to the patient. Continue metoprolol succinate 75 mg daily. 4. Nonrheumatic moderate-severe tricuspid regurgitation. Continue fluid reduction with hydralazine and isosorbide dinitrate. Continue management of heart failure. At some point, it may be helpful to have a transesophageal echocardiogram to further quantitate the severity of the mitral regurgitation to see whether or not she might be a candidate for a MitraClip. 5. Left unilateral renal artery stenosis. Patient to remain off angiotensin-converting enzymes (FLYNN) inhibitors and ARBs because of this. Renal function remains stable. 6. Systemic hypertension. Blood pressure controlled. Continue furosemide, hydralazine, isosorbide dinitrate, metoprolol succinate, spironolactone at the current dosages. 7. Hyperlipidemia. Continue a low fat, low cholesterol diet and intensive statin therapy (atorvastatin 40 mg nightly). 8. Abnormal ECG. Stable. Patient was instructed that she should contact my office and make an appointment to see us in followup next summer when she returns back to this area. As noted above, the patient is planning to return to [place] to her home following discharge from the hospital at this time and will establish with a local art therapist there and followup with her primary care provider (PCP) as soon as possible.
[2019-05-09 16:21] VITALS: BP 131/58
--- NOTE | 2019-05-09 18:13 | IPNPDOC ---
Text Note Date of Service The patient was seen on 05/09/19. NOTE Ms. Denney has chronic atrial fibrillation and acute on chronic systolic conge stive heart failure. She also has valvular heart disease. She is feeling better today and is anxious to return to her home in [place]. Objective: Please see below for vital signs HENT: Neck is supple with no adenopathy or thyromegaly, oral mucosa is moist, she does not exhibit remarkable pallor. Cardiovascular: exam shows a fairly regular rate and rhythm with a normal S1 and S2. No appreciable murmur Respiratory: Patient has decreased bibasilar rales, she does not have much cough. Abdomen: soft, mild central obesity, relative to her overall body habitus, nontender, bowel tones are present, no abdominal wall or flank edema. Extremities: Patient has visibly decreased nonpitting edema to her feet, ankles and legs, pedal pulses are palpable. Neuro: There is otherwise no focal neuromotor or sensory deficit on exam ASSESSMENT/PLAN: 1. Atrial fibrillation. Rate remains controlled on her current regimen. She is not on chronic anticoagulation due to a bleeding episode in the form of hematuria. 2. Acute on chronic systolic congestive heart failure. Patient has ejection fraction of 30-35%. She has shown some improvement to her peripheral edema and interstitial edema with her current diuresis regimen of Lasix drip. She will transition to oral regimen for home. Her renal function remains stable. 3. Chronic kidney disease stage III. She appears to be tolerating her current diuresis regimen of Lasix drip without worsening renal function. 4. Valvular heart disease. Patient has poor function of both mitral and aortic valves. Clipping procedure has been suggested with referral to [place]. Patient prefers to return home to [facility] [place]. This mortgage underwriter has tried contacting her requested cardiovascular group in [place]. They will not be able to see her until at least June. It is not likely that they will be able to do the mitral clip procedure. She may need to go to a larger center than what is available in [place], [place]. I will continue to attempt to research this for her. We are otherwise anticipating being able to discharge her to home tomorrow. VS,Fishbone, I+O VS, [place]bone, I+O Laboratory Tests 05/09/19 05:04 Red Blood Count 3.51 L, Mean Corpuscular Volume 92.6, Mean Corpuscular Hemoglobin 31.9, Mean Corpuscular Hemoglobin Concent 34.5, Red Cell Distribution Width 15.1 H, Calcium Level 8.1 L Vital Signs Date Time Temp Pulse Resp B/P (MAP) Pulse Ox O2 Delivery O2 Flow Rate FiO2 05/09/19 16:22 76 131/58 05/09/19 16:21 97.2 18 97 05/05/19 13:44 Room Air I&O- Last 24 Hours up to 6 AM 05/09/19 06:00 Intake Total 797.5 ml Output Total 2050 ml Balance -1252.5 ml LATOSHA DOVER MD May 09, 2019 18:13
[2019-05-09 20:00] VITALS: BP 126/58
[2019-05-09] MEDS: ATORVASTATIN 20 MG TAB PO SCH (20:39)
[2019-05-10] VITALS (7 sets, daily range): BP systolic 110–146; BP diastolic 52–73
[2019-05-10 05:53] LABS: HEMATOCRIT 32.8 % (36.0-47.0); HEMOGLOBIN 11.4 g/dl (12.0-15.5); MEAN CORPUSCULAR HEMOGLOBIN 31.8 pg (27.0-33.0); MEAN CORPUSCULAR HGB CONC 34.8 g/dl (32.0-36.5); MEAN CORPUSCULAR VOLUME 91.6 fl (80.0-96.0); PLATELET COUNT, AUTOMATED 245 10^3/uL (150-450); RED BLOOD COUNT 3.58 10^6/uL (4.00-5.40); WHITE BLOOD COUNT 6.8 10^3/uL (4.0-10.0)
[2019-05-10] MEDS: SLF 3 ML SYR IV SCH ×3 (06:00→21:27)
[2019-05-10 06:12] LABS: CALCIUM LEVEL 8.1 MG/DL (8.8-10.2); CREATININE FOR GFR 1.45 MG/DL (0.55-1.30); GLOMERULAR FILTRATION RATE 36.8 (>32); POTASSIUM SERUM 3.5 MEQ/L (3.5-5.1)
[2019-05-10] MEDS: ISOSORBIDE DIN. (ISORDIL) 30 MG TAB PO SCH ×3 (07:01→18:52)
[2019-05-10] MEDS: SPIRONOLACTONE 25 MG TAB PO SCH (09:40)
[2019-05-10] MEDS: **hydrALAZINE** 10 MG TAB PO SCH ×3 (09:40→21:28)
[2019-05-10] MEDS: METOPROLOL SUCC (TopROL XL) 100MG *XL* TAB PO SCH (09:40)
[2019-05-10] MEDS: ENOXAPARIN 30 MG/0.3 ML SYR (J1650) SC SCH (09:41)
[2019-05-10] MEDS: FUROSEMIDE injection 250 MG in D5W 225 ML IV SCH (10:18)
--- NOTE | 2019-05-10 16:36 | IPNPDOC ---
Text Note Date of Service The patient was seen on 05/10/19. NOTE Ms. Denney has chronic atrial fibrillation and acute on chronic systolic conge stive heart failure. She has valvular heart disease. She is feeling better today and is anxious to return to her home in [place]. She has been on a Lasix drip with effective diuresis. Objective: Please see below for vital signs HENT: Neck is supple with no adenopathy or thyromegaly, oral mucosa is moist, she does not exhibit remarkable pallor. Cardiovascular: exam shows a fairly regular rate and irregular rhythm with a normal S1 and S2. No appreciable murmur Respiratory: Patient has decreased bibasilar rales, no cough Abdomen: soft, mild central obesity, relative to her overall body habitus, nontender, bowel tones are present, no abdominal wall or flank edema. Extremities: Patient has essentially no edema currently to her feet, ankles and legs, pedal pulses are palpable. Neuro: There is otherwise no focal neuromotor or sensory deficit on exam ASSESSMENT/PLAN: 1. Atrial fibrillation. Rate remains controlled on her current regimen but still irregular rhythm. She is not on chronic anticoagulation due to a bleeding episode in the form of hematuria. 2. Acute on chronic systolic congestive heart failure. Patient has ejection fraction of 30-35%. She has shown some improvement to her peripheral edema and interstitial edema with her current diuresis regimen of Lasix drip. She will transition to oral regimen for home. Her renal function remains stable. Torsemide dosing discussed with the cardiology service; torsemide 20 mg twice a day recommended. 3. Chronic kidney disease stage III. She appears to be tolerating her current diuresis regimen of Lasix drip without worsening renal function. 4. Valvular heart disease. Patient has poor function of both mitral and aortic valves. Clipping procedure has been suggested with referral to [place]. Patient prefers to return home to [facility] [place]. This technical publications writer has tried contacting her requested cardiovascular group in [place]. They will not be able to see her until at least June. It is not likely that they will be able to do the mitral clip procedure. She may need to go to a larger center than what is available in [place], [place]. I will continue to attempt to research this for her. VS,[place], I+O VS, [place], I+O Laboratory Tests 05/10/19 05:14 Red Blood Count 3.58 L, Mean Corpuscular Volume 91.6, Mean Corpuscular Hemoglobin 31.8, Mean Corpuscular Hemoglobin Concent 34.8, Red Cell Distribution Width 14.9 H, Calcium Level 8.1 L Vital Signs Date Time Temp Pulse Resp B/P (MAP) Pulse Ox O2 Delivery O2 Flow Rate FiO2 05/10/19 15:51 97.3 82 18 110/52 (71) 95 05/05/19 13:44 Room Air I&O- Last 24 Hours up to 6 AM 05/10/19 05:59 Intake Total 1310 ml Output Total 2625 ml Balance -1315 ml LATOSHA DOVER MD May 10, 2019 16:36
[2019-05-10] MEDS: ATORVASTATIN 20 MG TAB PO SCH (21:28)
[2019-05-11 04:00] VITALS: BP 135/61
[2019-05-11] MEDS: ISOSORBIDE DIN. (ISORDIL) 30 MG TAB PO SCH (06:16)
[2019-05-11] MEDS: SLF 3 ML SYR IV SCH (06:16)
[2019-05-11 08:00] VITALS: BP 129/58
[2019-05-11] MEDS ORDERED: HYDR10TAB PO (08:55)
[2019-05-11] MEDS ORDERED: ALDA25TA2 PO (08:55)
[2019-05-11] MEDS ORDERED: METO1TAB33 PO (08:55)
[2019-05-11] MEDS ORDERED: TORS20TA2 PO (08:55)
[2019-05-11] MEDS ORDERED: TORSEMIDE 20 MG TAB PO SCH (09:00)
[2019-05-11] MEDS: METOPROLOL SUCC (TopROL XL) 100MG *XL* TAB PO SCH (09:21)
[2019-05-11] MEDS: SPIRONOLACTONE 25 MG TAB PO SCH (09:21)
[2019-05-11 09:22] VITALS: BP 129/58
[2019-05-11] MEDS: **hydrALAZINE** 10 MG TAB PO SCH (09:22)
[2019-05-11] MEDS: ENOXAPARIN 30 MG/0.3 ML SYR (J1650) SC SCH (09:23)
--- NOTE | 2019-05-11 17:47 | DS.PDOC ---
Discharge Summary General Date of Admission May 05, 2019 at 13:00 Date of Discharge May 11, 2019 Specialist/Consultants Involve: Marlon Pimentel Discharge Summary PROCEDURES PERFORMED DURING STAY: None. ADMITTING DIAGNOSES: 1. Acute on chronic systolic congestive heart failure. DISCHARGE DIAGNOSES: 1. Chronic systolic and diastolic congestive heart failure class II with ejection fraction 30-35%, chronic atrial fibrillation, valvular heart disease with involvement of both the tricuspid and mitral valve, chronic kidney disease stage III, renal artery stenosis. COMPLICATIONS/CHIEF COMPLAINT: Congestive Heart Failure. HISTORY OF PRESENT ILLNESS/HOSPITAL COURSE: This is a 84-year-old female who had previously been in good health. Over the past month she's been found to have multiple medical conditions inclusive of acute on chronic systolic and diastolic congestive heart failure, chronic atrial fibrillation and valvular heart disease. She has had multiple presentations to the hospital for fluid overload. For this hospital stay she was placed on aggressive diuretic therapy with a Lasix drip, which did finally mobilize sufficient fluid. The severity of her valvular heart disease in the form of both tricuspid and mitral regurgitation are contributory. Mitral clip procedure and watchman procedures have been recommended. Initially patient was to be referred to [place] but patient wishes to return home to [place]. She plans to return home to [facility] with a waste chopper and she has been given a list of centers that do the mitral clip procedure. Her medical management has otherwise been optimized. Please note that she cannot be on an FLYNN inhibitor or ARB due to her renal artery stenosis. The patient also had persistent chronic atrial fibrillation. We did attain rate control, but we were unable to convert her in any way to sinus. Ideally, this patient would be on anticoagulation. However, she had a bleeding episode with significant hematuria when she was placed on heparin and so for now, anticoagulation is contraindicated. The patient's renal function remained remarkably stable during this hospital stay despite being on Lasix drip.. DISCHARGE MEDICATIONS: Please see below. ALLERGIES: Please see below. PHYSICAL EXAMINATION ON DISCHARGE: VITAL SIGNS: Please see below. HENT: Neck is supple with no adenopathy or thyromegaly, oral mucosa is moist, she does not exhibit remarkable pallor. Cardiovascular: exam shows a fairly regular rate and irregular rhythm with a normal S1 and S2. No appreciable murmur Respiratory: Patient has decreased bibasilar rales, no cough Abdomen: soft, mild central obesity, relative to her overall body habitus, nontender, bowel tones are present, no abdominal wall or flank edema. Extremities: Patient has essentially no edema currently to her feet, ankles and legs, pedal pulses are palpable. Neuro: There is otherwise no focal neuromotor or sensory deficit on exam LABORATORY DATA: Please see below. IMAGING: PROGNOSIS: ACTIVITY: As tolerated. DIET: DASH diet with 1500 mL per day fluid restriction DISCHARGE PLAN: The patient is to be discharged to home. She'll return to [place] and follow-up with her primary care provider. She does not have a waste chopper, but apparently has been able to arrange an appointment with one next week. She has been given a list of those centers in [place] that do the mitral clip procedure should she qualify. DISPOSITION: Home, Self-Care. DISCHARGE INSTRUCTIONS: Patient has been instructed to obtain a digital scale. She is to weigh herself daily. If there is a weight gain of 2 pounds she is to take an extra dose of her torsemide. If there is a weight gain of 4 pounds she is to contact her physician.. ITEMS TO FOLLOWUP ON ON OUTPATIENT: 1. . DISCHARGE CONDITION: Stable. TIME SPENT ON DISCHARGE: Greater than 45 minutes. Vital Signs/I&Os Vital Signs Date Time Temp Pulse Resp B/P (MAP) Pulse Ox O2 Delivery O2 Flow Rate FiO2 05/11/19 09:22 129/58 05/11/19 09:21 79 05/11/19 08:00 97.0 20 91 05/05/19 13:44 Room Air I&O- Last 24 Hours up to 6 AM 05/11/19 06:00 Intake Total 750 ml Output Total 3250 ml Balance -2500 ml Microbiology Microbiology 05/05/19 Blood Culture - Final, Complete NO GROWTH AFTER 5 DAYS 05/05/19 Blood Culture - Final, Complete NO GROWTH AFTER 5 DAYS Discharge Medications Scheduled Atorvastatin Calcium (Atorvastatin Calcium) 40 Mg Tablet, 40 MG PO QHS, (Reported) Hydralazine HCl (Hydralazine HCl) 10 Mg Tablet, 10 MG PO TID Isosorbide Dinitrate (Isosorbide Dinitrate) 30 Mg Tablet, 30 MG PO TID, (Reported) 0700, 1200, 1700 Metoprolol Succinate (Metoprolol Succinate) 100 Mg Tab.er.24h, 100 MG PO DAILY Spironolactone (Aldactone) 25 Mg Tablet, 25 MG PO QAM Torsemide (Torsemide) 20 Mg Tablet, 20 MG PO BID@,17 Allergies Coded Allergies: No Known Allergies (Unverified , 04/08/19) LATOSHA DOVER MD May 11, 2019 17:47
== END 2019-05-11 11:15 | disposition home or self-care (01) | DRG 291 ==
LOC: M ED 09:59 → M ED INP 13:00 → M PCU 13:57
PROVIDERS: ADMIT Student in an Organized Health Care Education/Training Program; ATTEND Internal Medicine
DX: I13.0 Hypertensive heart and chronic kidney disease with heart failure and stage 1 through stage 4 chronic kidney disease, or unspecified chronic kidney disease (principal); I50.43 Acute on chronic combined systolic (congestive) and diastolic (congestive) heart failure; E87.1 Hypo-osmolality and hyponatremia; I48.1 Persistent atrial fibrillation; I70.1 Atherosclerosis of renal artery; E78.5 Hyperlipidemia, unspecified; I34.0 Nonrheumatic mitral (valve) insufficiency; I27.20 Pulmonary hypertension, unspecified; I48.2 Chronic atrial fibrillation; I42.0 Dilated cardiomyopathy; N18.3 Chronic kidney disease, stage 3 (moderate); Z96.652 Presence of left artificial knee joint; Z89.421 Acquired absence of other right toe(s); Z90.13 Acquired absence of bilateral breasts and nipples; Z87.891 Personal history of nicotine dependence; Z79.899 Other long term (current) drug therapy